=== PATIENT | female | born 1950 | race Caucasian/White ===

== ENCOUNTER → 2018-07-13 09:02 | Outpatient (BNVA) | payer MEDICARE, BC, SELFPAY | PROVIDERS: PCP Family Medicine; Visit Provider Nurse Practitioner Adult Health | DX: G62.9 Polyneuropathy, unspecified (principal); R73.03 Prediabetes | CPT/HCPCS: 99213 ==

== ENCOUNTER → 2018-08-15 13:27 | Outpatient (BNVA) | payer MEDICARE, BC, SELFPAY | PROVIDERS: PCP Family Medicine; Visit Provider Nurse Practitioner Adult Health | DX: G62.9 Polyneuropathy, unspecified (principal); M79.604 Pain in right leg | CPT/HCPCS: 99213 ==

== ENCOUNTER 2018-08-22 01:19 | Outpatient (CLI) | payer MEDICARE, BC, SELFPAY ==
--- NOTE | 2018-08-22 09:25 | DI.MRI_ITS ---
SYMPTOM/DIAGNOSIS: ? NEUROGENIC CLAUDICATION, PAIN RT LOWER EXTREMITY, LOW BACK PAIN, M54.5, M79.604 LUMBOSACRAL SPINE MRI: MRI examination of the lumbosacral spine was performed according to the usual protocol. Note is made of peridiscal vertebral signal changes at L 5-S 1 consistent with disc degeneration and associated with loss of disc height and disc signal. High signal focus is also seen in T 12 vertebral body consistent with a small vertebral hemangioma. No other significant bony signal abnormality is seen. Facet hypertrophic degenerative changes noted at L 4-5 and L 5-S 1. Conus medullaris appears intact. No significant findings at L 2-3 level or above. At L 3-4, there is a moderate disc bulge with borderline central canal spinal stenosis. Borderline central canal spinal stenosis also present at L 4-5. No focal disc herniation identified in the lumbar region. There is mild bilateral neural foraminal narrowing at L 4-5 and L 5- S 1. CONCLUSION: Disc bulges at L 3-4 and L 4-5 with borderline central canal spinal stenosis at these levels. Mild bilateral neural foraminal narrowing noted at L 4-5 and L 5- S 1.
== END 2018-08-22 01:39 ==
PROVIDERS: PCP Family Medicine; Visit Provider Nurse Practitioner Adult Health
DX: M79.604 Pain in right leg (principal); M54.5 Low back pain; M51.26 Other intervertebral disc displacement, lumbar region; M48.07 Spinal stenosis, lumbosacral region
CPT/HCPCS: 72148

== ENCOUNTER → 2018-09-21 13:36 | Outpatient (BNVA) | payer MEDICARE, BC, SELFPAY | PROVIDERS: PCP Family Medicine; Visit Provider Psychiatry & Neurology Neurology | DX: M54.17 Radiculopathy, lumbosacral region (principal); G60.9 Hereditary and idiopathic neuropathy, unspecified; I10 Essential (primary) hypertension | CPT/HCPCS: 95885; 95908; 99214 ==

== ENCOUNTER 2018-10-04 09:43 | Outpatient (CLI) | payer MEDICARE, BC, SELFPAY ==
--- NOTE | 2018-10-04 06:00 | DI.RAD_ITS ---
SYMPTOM/DIAGNOSIS: LUMBAR RADICULOPATHY C-ARM FLUOROSCOPY: Fluoroscopy Time: 47.5 seconds 15.25mGy C-arm fluoroscopy was provided for guidance with lumbar spine [facility] injections. Hard copy images show needle placement on the right side at the L5-S1 level. Please see procedure note for details.
[2018-10-04 09:52] VITALS: BP 123/70; PULSE 74; RESP 18; TEMP 36.5; O2SAT 97
[2018-10-04 10:39] VITALS: BP 147/65; PULSE 70; RESP 17; O2SAT 94
--- NOTE | 2018-10-04 10:40 | PDOC.PAIN ---
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 COMMENTS: The patient has foraminal stenosis at L5-S1, right slightly worse than left. She has a right radicular symptoms. She saw Dr. Lee the nerve studies and thought it was S1 radiculitis. Symptoms an MRI seems more like L5. Patient was interviewed and the medical record reviewed. There were no medical, pharmacologic, radiographic or other structural contraindications to attempting fluoroscopically guided transforaminal nerve root block and epidural steroid injection. Risks and expected side effects as well as potential benefit of the procedure were reviewed and voiced concerns addressed. The printed consent form was signed and witnessed. Standard time-out procedure was performed. Patient was placed in the prone position on the fluoroscopy table and automated blood pressure cuff and pulse oximeter applied. Fluoroscopy was utilized to identify the {right} neural foramen between L5 and S1 . A skin jody was made for the needle insertion site. A Chlorhexadine prep was carried out, and sterile drapes were applied. Local anesthesia was achieved in the skin and subcutaneous tissues. A 22 gauge curved tip spinal needle was then inserted, advanced with fluoroscopic guidance into the neural foramen, confirmed on the lateral view. After negative aspiration, 2 ml of Omnipaque 240 was injected confirming position in A/P and lateral views. This showed a good spread of dye transforaminally into the epidural space. There was initially vascular uptake with contrast injection under continuous fluoroscopy and digital substraction. Position and there was no uptake. I switched from medical to 10 mg of dexamethasone was injected, followed by 0.5 ml of 0.5% bupivacaine flush for the nerve root block, as well. There was no unusual discomfort expressed.The needle was withdrawn. The patient tolerated the procedure well. A Band-Aid was applied. Vital signs were stable throughout the procedure and were as recorded in nursing records. If given, dosages of intravenous drugs for anxiolysis and analgesia were documented in nursing records. Follow up plans and appointments were discussed. Post procedure instruction was given as documented in nursing records and patient was discharged in the care of an identified driver retraining instructor. COMMENTS: Follow-up as needed consider repeat or consider right S1 transforaminal or interlaminar with catheter to the right CC: Alejandra Thomson
[2018-10-04] MEDS: Omnipaque 240 MG/ML 50 ML BTL IJ (10:45)
--- NOTE | 2018-10-04 10:45 | PDOC.PAIN_ITS ---
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 COMMENTS: The patient has foraminal stenosis at L5-S1, right slightly worse than left. She has a right radicular symptoms. She saw Dr. Lee the nerve studies and thought it was S1 radiculitis. Symptoms an MRI seems more like L5. Patient was interviewed and the medical record reviewed. There were no medical , pharmacologic, radiographic or other structural contraindications to attempting fluoroscopically guided transforaminal nerve root block and epidural steroid injection. Risks and expected side effects as well as potential benefit of the procedure were reviewed and voiced concerns addressed. The printed consent form was signed and witnessed. Standard time-out procedure was performed. Patient was placed in the prone position on the fluoroscopy table and automated blood pressure cuff and pulse oximeter applied. Fluoroscopy was utilized to identify the {right} neural foramen between L5 and S1 . A skin jody was made for the needle insertion site. A Chlorhexadine prep was carried out, and sterile drapes were applied. Local anesthesia was achieved in the skin and subcutaneous tissues. A 22 gauge curved tip spinal needle was then inserted, advanced with fluoroscopic guidance into the neural foramen, confirmed on the lateral view. After negative aspiration, 2 ml of Omnipaque 240 was injected confirming position in A/P and lateral views. This showed a good spread of dye transforaminally into the epidural space. There was initially vascular uptake with contrast injection under continuous fluoroscopy and digital substraction. Position and there was no uptake. I switched from medical to 10 mg of dexamethasone was injected, followed by 0.5 ml of 0.5% bupivacaine flush for the nerve root block, as well. There was no unusual discomfort expressed.The needle was withdrawn. The patient tolerated the procedure well. A Band-Aid was applied. Vital signs were stable throughout the procedure and were as recorded in nursing records. If given, dosages of intravenous drugs for anxiolysis and analgesia were documented in nursing records. Follow up plans and appointments were discussed. Post procedure instruction was given as documented in nursing records and patient was discharged in the care of an identified road train driver. COMMENTS: Follow-up as needed consider repeat or consider right S1 transforaminal or interlaminar with catheter to the right CC: Alejandra Thomson
[2018-10-04] MEDS: Dexamethasone 10 MG/ML VIAL IM (10:46)
[2018-10-04] MEDS: Bupivacaine 0.5% Pres-Free 10 ML VIAL IJ (10:46)
== END 2018-10-04 10:03 ==
PROVIDERS: PCP Family Medicine; Visit Provider Anesthesiology Pain Medicine
DX: M54.17 Radiculopathy, lumbosacral region (principal); G89.29 Other chronic pain
CPT/HCPCS: 64483; 72100; J1100; Q9967

== ENCOUNTER 2018-11-11 11:05 | Outpatient (CLI) | payer MEDICARE, BC, SELFPAY ==
--- NOTE | 2018-11-11 14:18 | DI.RAD_ITS ---
SYMPTOMS/DIAGNOSIS: PAIN IN RIGHT HIP, M25.551; PAIN, 3RD DIGIT AND THUMB, BILATERAL HANDS, R52 RIGHT HIP AND PELVIS: Two views. The right hip joint is well maintained. The bones are intact and normally mineralized. The sacroiliac joints and symphysis pubis appear unremarkable. The soft tissues are unremarkable. IMPRESSION: Negative right hip. LEFT HAND: Three views. There is joint space narrowing and periarticular spurring at the interphalangeal joints of the hand, particularly the interphalangeal joint of the thumb, the PIP joint of the index finger and the DIP joint of the middle finger. There are also prominent hypertrophic changes seen at the 1st carpometacarpal joint. No acute fracture or dislocation, suspicious lytic or sclerotic lesions or radiopaque foreign bodies are seen in the soft tissues. IMPRESSION: Osteoarthritis of the left hand. RIGHT HAND: Three views. At the 1st carpometacarpal joint, there are moderate hypertrophic changes present. The metacarpophalangeal joints are well maintained. The interphalangeal joints of the hand show joint space narrowing and periarticular osteophytes. the findings are most marked at the interphalangeal joint of the thumb, the DIP joint of the index finger and the DIP joint of the right little finger. No acute fracture, dislocation, lytic or sclerotic lesion is seen. No radiopaque foreign bodies are seen in the soft tissues. IMPRESSION: Osteoarthritis of the right hand.
== END 2018-11-11 11:25 ==
PROVIDERS: PCP Family Medicine; Visit Provider Family Medicine
DX: M25.551 Pain in right hip (principal); M79.644 Pain in right finger(s); M79.645 Pain in left finger(s); M79.641 Pain in right hand; M79.642 Pain in left hand; M18.11 Unilateral primary osteoarthritis of first carpometacarpal joint, right hand; M18.12 Unilateral primary osteoarthritis of first carpometacarpal joint, left hand; M19.041 Primary osteoarthritis, right hand; M19.042 Primary osteoarthritis, left hand
CPT/HCPCS: 73130; 73502

== ENCOUNTER → 2018-12-07 13:20 | Outpatient (BNVA) | payer MEDICARE, BC, SELFPAY | PROVIDERS: PCP Family Medicine; Referring Provider Family Medicine; Visit Provider Student in an Organized Health Care Education/Training Program | DX: M70.61 Trochanteric bursitis, right hip (principal); M18.12 Unilateral primary osteoarthritis of first carpometacarpal joint, left hand; M18.11 Unilateral primary osteoarthritis of first carpometacarpal joint, right hand | CPT/HCPCS: 20610; 99203; 99214; J1040 ==

== ENCOUNTER → 2018-12-19 09:39 | Outpatient (BNVA) | payer MEDICARE, BC, SELFPAY | PROVIDERS: PCP Family Medicine; Visit Provider Nurse Practitioner Adult Health | DX: G62.9 Polyneuropathy, unspecified (principal); M54.16 Radiculopathy, lumbar region; R73.03 Prediabetes | CPT/HCPCS: 99213 ==

== ENCOUNTER → 2019-01-02 14:50 | Outpatient (BNVA) | payer MEDICARE, BC, SELFPAY | PROVIDERS: PCP Family Medicine; Referring Provider Family Medicine; Visit Provider Student in an Organized Health Care Education/Training Program | DX: M70.61 Trochanteric bursitis, right hip (principal) | CPT/HCPCS: 99212; 99213 ==

== ENCOUNTER 2019-01-06 00:36 | Outpatient (CLI) | payer MEDICARE, BC, SELFPAY ==
--- NOTE | 2019-01-06 07:52 | DI.MRI_ITS ---
SYMPTOM/DIAGNOSIS: CHRONIC RT HIP PAIN, TROCHANTERIC BURSITIS, ? ABDUCTOR TENDON TEAR, M25.559 PELVIS AND RIGHT HIP MRI: T 1 and fat suppressed T 2 axial, T 1 and STIR coronal sequences were performed with the field of view including both hips. Fat suppressed proton density coronal and fat suppressed T 2 sagittal sequences were performed through the right hip. There is a small amount of fluid around the greater trochanter. There is some thickening and edema within the gluteus medius tendon. The gluteus minimus tendon is unremarkable. No joint effusion is seen. The marrow signal appears normal. No signal abnormality is seen within the abductor muscles. The bladder is unremarkable. The patient appears to be status post hysterectomy. IMPRESSION: Findings consistent with mild trochanteric bursitis and gluteus medius tendinitis.
== END 2019-01-06 00:56 ==
PROVIDERS: PCP Family Medicine; Visit Provider Physician Assistant
DX: M25.551 Pain in right hip (principal); M70.61 Trochanteric bursitis, right hip; M76.01 Gluteal tendinitis, right hip
CPT/HCPCS: 73721

== ENCOUNTER 2019-01-11 09:41 | Outpatient (CLI) | payer MEDICARE, BC, SELFPAY ==
--- NOTE | 2019-01-11 06:00 | DI.RAD_ITS ---
SYMPTOMS/DIAGNOSIS: LUMBAR RADICULOPATHY, TRANSFORAMINAL EPIDURAL STEROID INJECTION PAIN CLINIC: Fluoroscopy Time: 23.7 sec, 6.4 mGy Fluoroscopy was utilized by Dr. Womack during the performance of a transforaminal epidural steroid injection. Please refer to the procedure report for complete details.
[2019-01-11 10:02] VITALS: BP 125/74; PULSE 74; RESP 16; TEMP 36.9; O2SAT 96
[2019-01-11 10:34] VITALS: BP 143/64; PULSE 80; RESP 18; O2SAT 97
[2019-01-11] MEDS: Dexamethasone Sod. Phos./Pres-Free 10 MG/ML VIAL IJ (10:35)
[2019-01-11] MEDS: Omnipaque 240 MG/ML 50 ML BTL IJ (10:35)
--- NOTE | 2019-02-28 09:26 | PDOC.PAIN_ITS ---
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 COMMENTS: She was previously evaluated. Patient was interviewed and the medical record reviewed. There were no medical, pharmacologic, radiographic or other structural contraindications to attempting fluoroscopically guided transforaminal nerve root block and epidural steroid injection. Risks and expected side effects as well as potential benefit of the procedure were reviewed and voiced concerns addressed. The printed consent form was signed and witnessed. Standard time-out procedure was performed. Patient was placed in the prone position on the fluoroscopy table and automated blood pressure cuff and pulse oximeter applied. Fluoroscopy was utilized to identify the right L5 neural foramen between L5 and S1. A skin jody was made for the needle insertion site. A Chlorhexadine prep was carried out, and sterile drapes were applied. Local anesthesia was achieved in the skin and subcutaneous tissues. A 22 gauge curved tip spinal needle was then inserted, advanced with fluoroscopic guidance into the neural foramen, confirmed on the lateral view. After negative aspiration, 2 ml of Omnipaque 240 was injected confirming position in A/P and lateral views. This showed a good spread of dye transforaminally into the epidural space. There was no vascular update with contrast injection under continuous fluoroscopy and digital substraction. 15 mg of Dexamethasone was injected, followed by 0.5 ml of 1% Xylocaine flush for the nerve root block, as well. There was no unusual discomfort expressed.The needle was withdrawn. The patient tolerated the procedure well. A Band-Aid was applied. Vital signs were stable throughout the procedure and were as recorded in nursing records. If given, dosages of intravenous drugs for anxiolysis and analgesia were documented in nursing records. Follow up plans and appointments were discussed. Post procedure instruction was given as documented in nursing records and patient was discharged in the care of an identified road train driver. COMMENTS: This procedure can be completed up to 3 times per 12 months. CC: Alejandra Thomson MD
--- NOTE | 2019-04-04 12:11 | PDOC.PAIN ---
Pain Clinic Procedure Note LUMBAR / SACRAL TRANSFORAMINAL INJECTION ORION CRAVER has been referred to the [facility] for a transforaminal nerve root block and steroid injection. COMMENTS: Previous successful LESI Patient was interviewed and the medical record reviewed. There were no medical, pharmacologic, radiographic or other structural contraindications to attempting fluoroscopically guided transforaminal nerve root block and epidural steroid injection. Risks and expected side effects as well as potential benefit of the procedure were reviewed and voiced concerns addressed. The printed consent form was signed and witnessed. Standard time-out procedure was performed. Patient was placed in the prone position on the fluoroscopy table and automated blood pressure cuff and pulse oximeter applied. Fluoroscopy was utilized to identify the right L5 neural foramen between L5 and S1. A skin jody was made for the needle insertion site. A Chlorhexadine prep was carried out, and sterile drapes were applied. Local anesthesia was achieved in the skin and subcutaneous tissues. A 22 gauge curved tip spinal needle was then inserted, advanced with fluoroscopic guidance into the neural foramen, confirmed on the lateral view. After negative aspiration, 2 ml of Omnipaque 240 was injected confirming position in A/P and lateral views. This showed a good spread of dye transforaminally into the epidural space. There was no vascular update with contrast injection under continuous fluoroscopy and digital substraction. 15 mg of Dexamethasone was injected, followed by 0.5 ml of 1% Xylocaine flush for the nerve root block, as well. There was no unusual discomfort expressed.The needle was withdrawn. The patient tolerated the procedure well. A Band-Aid was applied. Vital signs were stable throughout the procedure and were as recorded in nursing records. If given, dosages of intravenous drugs for anxiolysis and analgesia were documented in nursing records. Follow up plans and appointments were discussed. Post procedure instruction was given as documented in nursing records and patient was discharged in the care of an identified local company tanker driver. COMMENTS: If this procedure is found helpful, it can be completed up to 3 times per 12 months. CC: Alejandra Thomson MD
--- NOTE | 2019-04-04 12:14 | PDOC.PAIN_ITS ---
Pain Clinic Procedure Note LUMBAR / SACRAL TRANSFORAMINAL INJECTION ORION CARVER has been referred to the [facility] for a transforaminal nerve root block and steroid injection. COMMENTS: Previous successful LESI Patient was interviewed and the medical record reviewed. There were no medical, pharmacologic, radiographic or other structural contraindications to attempting fluoroscopically guided transforaminal nerve root block and epidural steroid injection. Risks and expected side effects as well as potential benefit of the procedure were reviewed and voiced concerns addressed. The printed consent form was signed and witnessed. Standard time-out procedure was performed. Patient was placed in the prone position on the fluoroscopy table and automated blood pressure cuff and pulse oximeter applied. Fluoroscopy was utilized to identify the right L5 neural foramen between L5 and S1. A skin jody was made for the needle insertion site. A Chlorhexadine prep was carried out, and sterile drapes were applied. Local anesthesia was achieved in the skin and subcutaneous tissues. A 22 gauge curved tip spinal needle was then inserted, advanced with fluoroscopic guidance into the neural foramen, confirmed on the lateral view. After negative aspiration, 2 ml of Omnipaque 240 was injected confirming position in A/P and lateral views. This showed a good spread of dye transforaminally into the epidural space. There was no vascular update with contrast injection under continuous fluoroscopy and digital substraction. 15 mg of Dexamethasone was injected, followed by 0.5 ml of 1% Xylocaine flush for the nerve root block, as well. There was no unusual discomfort expressed.The needle was withdrawn. The patient tolerated the procedure well. A Band-Aid was applied. Vital signs were stable throughout the procedure and were as recorded in nursing records. If given, dosages of intravenous drugs for anxiolysis and analgesia were documented in nursing records. Follow up plans and appointments were discussed. Post procedure instruction was given as documented in nursing records and patient was discharged in the care of an identified light truck driver. COMMENTS: If this procedure is found helpful, it can be completed up to 3 times per 12 months. CC: Alejandra Thomson MD
== END 2019-01-11 10:01 ==
PROVIDERS: PCP Family Medicine; Visit Provider Preventive Medicine Occupational Medicine
DX: M54.17 Radiculopathy, lumbosacral region (principal)
CPT/HCPCS: 64483; 72100; Q9967

== ENCOUNTER → 2019-01-18 09:56 | Outpatient (BNVA) | payer MEDICARE, BC, SELFPAY | PROVIDERS: PCP Family Medicine; Referring Provider Family Medicine; Visit Provider Student in an Organized Health Care Education/Training Program | DX: M70.61 Trochanteric bursitis, right hip (principal) | CPT/HCPCS: 99213 ==

== ENCOUNTER 2019-02-16 13:49 | Outpatient (CLI) | payer MEDICARE, BC, SELFPAY ==
--- NOTE | 2019-02-16 13:06 | W.PREOPHP ---
Documented by User: Taniya Lizarraga 02/16/19 18:28 Assessment and Plan (1) Trochanteric bursitis of right hip: Current visit: Yes Status: Acute Plan: Educated patient on surgery covering surgical technique, recovery process, benefits and risks including but not limited to risk of infection, blood clot, damage to soft tissue/blood vessels/nerves in detail. As per Dr. Clements's previous notes educated patient if tendon tearing is present at time of surgery and she undergoes tendon repair then her recovery course will have increased restrictions. After discussion patient gives verbal understanding of risks and elects to proceed with scheduling surgery. Patient and her had opportunity to have questions answered to their satisfaction. Patient has previously had adverse reaction to generic form of hydrocodone which she describes as experiencing headaches and feeling off. Due to patient's previous adverse reaction she wishes to avoid narcotic medications. Patient also reports increased acid reflux with ibuprofen. Educated patient on alternative postoperative pain medications including likely taking regularly scheduled Tylenol and alternative NSAID. She denies previously being on Celebrix. She will contact office if issues arise. Patient will continue to be scheduled for right trochanteric bursa debridement and IT band lengthening with possible tendon repair with Dr. Clements on 02/21/19. History of Present Illness Ms. Puri is a 68-year-old female who presents to clinic with her , Panda, for preoperative appointment for scheduled right trochanteric bursa debridement and IT band lengthening with Dr. Clements on 02/21/19. Patient has continued to have right trochanteric bursitis for greater than 1 year. Previously she attended physical therapy twice weekly and reported doing daily at home recommended exercises. Although patient reports that she had significant improvement in her muscle tightness, she did unfortunately continue to have right lateral based hip pain. Patient describes pain as a tenderness extending from areas identified as the trochanteric bursa down the length of the IT band. Pain is aggravated with lying on her side and following her exercises. Patient states when pain is severe especially when laying on her side at night she does experience slight numbness and tingling around the area of the greater trochanter that will gradually improved. Patient has treated symptoms by taking Tylenol as needed and applying ice which provides slight pain relief. Unfortunately, patient reports increase in acid reflux with ibuprofen. Patient also received an injection on 12/07/18 which provided approximately 1 week of pain relief. As per Dr. Clements's note on 01/18/19 MRI showed tendinitis of the abductor musculature but no yung tearing. Impression by Dr. Tinsley on 01/06/19 stated findings consistent with mild trochanteric bursitis and gluteus medius tendinitis. Due to patient's continued trochanteric bursitis despite adequate trial of conservative therapies including physical therapy and corticosteroid injection she was offered surgical intervention and elected to proceed. Pertinent Surgical Information Denies past medical history of: stroke, cardiac issues, angina, asthma, COPD, sleep apnea, renal issues, gastrointestinal ulcers, hyperlipidemia, bleeding disorders, seizures, migraines, anxiety, depression, autoimmune disorders, thyroid issues Denies prior complications from surgery or anesthesia. Review of Systems Review of Systems Denies skin sores; denies pustules; denies areas of skin breakdown Constitutional Denies fever(s), Denies frequent falls and Denies headache(s) Eyes Denies change in vision ENT Denies dental pain, Denies dizziness, Denies ear discharge, Denies headache(s), Denies epistaxis, Denies mouth pain, Denies nasal congestion, Denies nasal discharge, Denies nose pain and Denies sore throat Comments: Pertinent for bridge and crown on teeth on the right side of her mouth Cardiovascular Denies chest pain, Denies rapid heart rate, Denies edema, Denies irregular heart rhythm, Denies dyspnea, Denies dyspnea on exertion, Denies orthopnea, Denies paroxysmal nocturnal dyspnea and Denies slow heart rate Respiratory Denies cough, Denies excessive phlegm production, Denies dyspnea, Denies dyspnea on exertion and Denies wheezing Gastrointestinal Denies abdominal pain, Denies melena, Denies hematochezia, Denies constipation, Denies diarrhea, Denies nausea and Denies vomiting Genitourinary Denies hematuria and Denies dysuria Musculoskeletal Reports as per HPI, Reports numbness (Occasionally over right greater trochanter when pain is severe) and Reports tingling (Occasionally over right greater trochanter when pain is severe) Neurologic Denies dizziness, Denies frequent falls, Denies headache(s), Reports numbness (Occasionally over right greater trochanter when pain is severe) and Reports tingling (Occasionally over right greater trochanter when pain is severe) Psychiatric Denies anxiety and Denies depression Allergic/Immunologic Denies wheezing [facility] Medical History Primary osteoarthritis of right knee (Chronic) Trochanteric bursitis of right hip (Acute) Right lumbosacral radiculopathy (Chronic) Non-alcoholic fatty liver disease (Chronic) Essential hypertension (Chronic) Family history of GI malignancy Esophageal reflux (Chronic) Varicose veins of lower extremity (Chronic) Idiopathic peripheral neuropathy (Chronic) Surgical History Colonoscopy - MAC (~10/2004) EGD - MAC (~10/2004) Hemorrhoidectomy (~2000) Abdominal hysterectomy (~1983) STRABISMUS VARICOSE VEIN SURGERY Family History Mother Disorder of liver Diabetes Alcohol abuse Heart disease Smoker Father Disorder of liver Alcohol abuse Heart disease Smoker Sister Diabetes Essential hypertension Neoplasm Sister Diabetes Essential hypertension Heart disease Sister Diabetes Brother Diabetes Essential hypertension Hyperlipidemia Neoplasm Brother Diabetes Essential hypertension Neoplasm Daughter Graves disease Social History Smoking/Tobacco Use Status: Former Tobacco Use Tobacco: How many years used: 20 Alcohol Intake: current Alcohol Intake frequency: holidays/special occasions only Alcohol type: wine Drug use: Never Substance use type: does not use Household members: spouse Housing: house Number of Children: 2 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 Other: - Panda What type of physical activity do you participate in: walking Duration: 45-60 minutes/day Frequency: 5-6 times per week Do you feel safe at home: Yes Do you feel safe in your relationship?: Yes Meds Home Medications Medication Instructions Recorded Confirmed Type multivitamin [Multi-Vitamin Daily] 1 ea PO DAILY 03/02/16 02/16/19 History meclizine 25 mg PO TID PRN #30 tab-cap 11/10/17 02/16/19 History esomeprazole magnesium [Nexium] 40 mg PO BID #60 packet 04/20/18 02/16/19 Rx Varicella-Zoster Ge/As01b/Pf 50 mcg IM ONCE #1 kit 05/09/18 01/18/19 Clinic [Shingrix Vial Kit] nabumetone 500 mg PO BID PRN #60 tab-cap 05/09/18 02/16/19 History lisinopril 20 mg tablet 20 mg PO DAILY #90 tab-cap 08/08/18 02/16/19 Rx cholecalciferol (vitamin D3) 2,000 2,000 unit PO DAILY 08/15/18 02/16/19 History unit tablet gabapentin 600 mg tablet 600 mg PO TID #90 tab-cap 09/27/18 02/16/19 Rx lidocaine 5 % topical ointment 1 applic TOPICAL Q4H PRN #30 gm 12/19/18 02/16/19 Rx hydrochlorothiazide 25 mg tablet 25 mg PO DAILY #90 tab-cap 02/07/19 02/16/19 Rx Allergies Allergy/AdvReac Type Severity Reaction Status Date / Time Penicillins Allergy Unknown HIVES Unverified 02/16/19 18:13 hydrocodone AdvReac Unknown H/A Unverified 02/16/19 18:13 Exam Const General: cooperative and no acute distress HENMT Head: normal to inspection, normocephalic and atraumatic Ears: external ears normal General nose exam: external nose normal and no nasal discharge Face and sinus: face symmetric Mouth: oral mucosae normal, lip normal, tongue normal and moist mucous membranes Teeth and gingiva: dentition normal Throat: posterior oropharynx normal Eyes General: appearance normal, both eyes and all related structures Pupils: PERRL EOM: EOM intact bilaterally Neck Neck: trachea midline Carotids: normal carotid upstroke Lymphatic: no lymphadenopathy noted Resp Effort & Inspection: normal respiratory effort and able to speak in complete sentences Auscultation: clear to auscultation bilaterally, no rales, no rhonchi and no wheezes Cardio Heart Sounds: S1 normal, S2 normal and no murmurs Pulses: radial pulses present bilaterally GI Palpation: soft, no hepatosplenomegaly and nontender Auscultation: normal bowel sounds Skin General skin exam: no rashes or lesions noted Extrem Other: Right hip examination: Severe tenderness to palpation over the greater trochanter. Tenderness to palpation along the length of IT band. Documented by User: Daniel Clements MD 02/18/19 09:56 History of Present Illness Ms. Puri is a 68-year-old female who presents to clinic with her , Panda, for preoperative appointment for scheduled right trochanteric bursa debridement and IT band lengthening with Dr. Clements on 02/21/19. Patient has continued to have right trochanteric bursitis for greater than 1 year. Previously she attended physical therapy twice weekly and reported doing daily at home recommended exercises. Although patient reports that she had significant improvement in her muscle tightness, she did unfortunately continue to have right lateral based hip pain. Patient describes pain as a tenderness extending from areas identified as the trochanteric bursa down the length of the IT band. Pain is aggravated with lying on her side and following her exercises. Patient states when pain is severe especially when laying on her side at night she does experience slight numbness and tingling around the area of the greater trochanter that will gradually improved. Patient has treated symptoms by taking Tylenol as needed and applying ice which provides slight pain relief. Unfortunately, patient reports increase in acid reflux with ibuprofen. Patient also received an injection on 12/07/18 which provided approximately 1 week of pain relief. As per Dr. Clements's note on 01/18/19 MRI showed tendinitis of the abductor musculature but no yugn tearing. Impression by Dr. Tinsley on 01/06/19 stated findings consistent with mild trochanteric bursitis and gluteus medius tendinitis. Due to patient's continued trochanteric bursitis despite adequate trial of conservative therapies including physical therapy and corticosteroid injection she was offered surgical intervention and elected to proceed. [facility] Medical History Primary osteoarthritis of right knee (Chronic) Trochanteric bursitis of right hip (Acute) Right lumbosacral radiculopathy (Chronic) Non-alcoholic fatty liver disease (Chronic) Essential hypertension (Chronic) Family history of GI malignancy Esophageal reflux (Chronic) Varicose veins of lower extremity (Chronic) Idiopathic peripheral neuropathy (Chronic) Surgical History Colonoscopy - MAC (~10/2004) EGD - MAC (~10/2004) Hemorrhoidectomy (~2000) Abdominal hysterectomy (~1983) STRABISMUS VARICOSE VEIN SURGERY Family History Mother Disorder of liver Diabetes Alcohol abuse Heart disease Smoker Father Disorder of liver Alcohol abuse Heart disease Smoker Sister Diabetes Essential hypertension Neoplasm Sister Diabetes Essential hypertension Heart disease Sister Diabetes Brother Diabetes Essential hypertension Hyperlipidemia Neoplasm Brother Diabetes Essential hypertension Neoplasm Daughter Graves disease Social History Smoking/Tobacco Use Status: Former Tobacco Use Tobacco: How many years used: 20 Alcohol Intake: current Alcohol Intake frequency: holidays/special occasions only Alcohol type: wine Drug use: Never Substance use type: does not use Household members: spouse Housing: house Number of Children: 2 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 Other: - Panda What type of physical activity do you participate in: walking Duration: 45-60 minutes/day Frequency: 5-6 times per week Do you feel safe at home: Yes Do you feel safe in your relationship?: Yes Meds Home Medications Medication Instructions Recorded Confirmed Type multivitamin [Multi-Vitamin Daily] 1 ea PO DAILY 03/02/16 02/16/19 History meclizine 25 mg PO TID PRN #30 tab-cap 11/10/17 02/16/19 History esomeprazole magnesium [Nexium] 40 mg PO BID #60 packet 04/20/18 02/16/19 Rx Varicella-Zoster Ge/As01b/Pf 50 mcg IM ONCE #1 kit 05/09/18 01/18/19 Clinic [Shingrix Vial Kit] nabumetone 500 mg PO BID PRN #60 tab-cap 05/09/18 02/16/19 History lisinopril 20 mg tablet 20 mg PO DAILY #90 tab-cap 08/08/18 02/16/19 Rx cholecalciferol (vitamin D3) 2,000 2,000 unit PO DAILY 08/15/18 02/16/19 History unit tablet gabapentin 600 mg tablet 600 mg PO TID #90 tab-cap 09/27/18 02/16/19 Rx lidocaine 5 % topical ointment 1 applic TOPICAL Q4H PRN #30 gm 12/19/18 02/16/19 Rx hydrochlorothiazide 25 mg tablet 25 mg PO DAILY #90 tab-cap 02/07/19 02/16/19 Rx Allergies Allergy/AdvReac Type Severity Reaction Status Date / Time Penicillins Allergy Unknown HIVES Unverified 02/16/19 18:13 hydrocodone AdvReac Unknown H/A Unverified 02/16/19 18:13
== END 2019-02-16 14:09 ==
PROVIDERS: PCP Family Medicine; Visit Provider Student in an Organized Health Care Education/Training Program
DX: M70.61 Trochanteric bursitis, right hip (principal); M25.551 Pain in right hip; Z01.818 Encounter for other preprocedural examination; I10 Essential (primary) hypertension
CPT/HCPCS: NC

== ENCOUNTER 2019-02-21 09:35 | Day surgery (SDC) | payer MEDICARE, BC, SELFPAY ==
[2019-02-16 14:06] VITALS: BP 142/83; PULSE 79; RESP 18; TEMP 37.1; O2SAT 95
[2019-02-21] VITALS (7 sets, daily range): BP systolic 92–143; BP diastolic 49–74; PULSE 69–80; RESP 14–21; TEMP 35.9–36.5; O2SAT 94–96
[2019-02-21] MEDS: Lactated Ringers 1,000 ML 80 ML IV (10:02)
[2019-02-21] MEDS: ceFAZolin 2 GM/50 ML BAG IVPB (11:28)
[2019-02-21] MEDS: Bupivacaine 0.25% Pres-Free 30 ML VIAL (11:44)
--- NOTE | 2019-02-21 12:34 | W.PM.DSUDISC ---
Discharge Plan Disposition Patient Disposition: HOME Condition: Good Discharge Details Reason For Visit: (L) RECALCITRANT TROCH BURSITIS Attending Provider: Daniel Clements Primary Care Provider: Alejandra Thomson Home Meds and New Rx's Prescriptions: New acetaminophen 500 mg tablet 1,000 mg PO Q8H PRN (Reason: pain) Qty: 90 RF: 3 ibuprofen 600 mg tablet 600 mg PO TID PRNQty: 90 RF: 3 tramadol 50 mg tablet 50 mg PO Q4H PRN (Reason: pain) Qty: 12 RF: 0 Continued cholecalciferol (vitamin D3) [Vitamin D3] 2,000 unit tablet 2,000 unit PO DAILY RF: 0 lidocaine 5 % ointment 1 applic Topical Q4H PRN Qty: 30 RF: 3 multivitamin [Daily Multi-Vitamin] 1 EACH tablet 1 ea PO DAILY RF: 0 meclizine 25 MG tablet 25 mg PO TID PRNQty: 30 RF: 3 Nexium Packet [address] for susp in packet 40 mg PO BID Qty: 60 RF: 0 Varicella-Zoster Ge/As01b/Pf [Shingrix Vial Kit] 50 MCG INJ 50 mcg IM ONCE Qty: 1 RF: 1 lisinopril 20 mg tablet 20 mg PO DAILY Qty: 90 RF: 4 gabapentin 600 mg tablet 600 mg PO TID Qty: 90 RF: 4 hydrochlorothiazide 25 mg tablet 25 mg PO DAILY Qty: 90 RF: 3 Discontinued nabumetone 500 MG tablet 500 mg PO BID PRNQty: 60 RF: 3 Discharge Instructions Additional Instructions: Dr. Clements?s Hip Discharge Instructions Activity: The most thing is to take it easy and use the walker and resume easy walking and activities of daily living. You should try to take short walks a few times a day. You have no restrictions on movement or positioning, but do not try to force what you do. You will find some stiffness and weakness with hip movement. Do not try to strengthen this too early, continue to practice walking and stairs and this will come. - Outpatient physical therapy can be helpful to help return you to a normal gait and improve your flexibility and strength. This can start around 2 weeks. For some patients, it?s not necessary. Usually this is determined at the time of discharge or at the first post-operative visit. Dressing: Keep the surgical dressing in place for at least one week. After the first week it may be removed and replace with light gauze and tape or nothing. It may get wet after 3 days but avoid soaking the dressing. If it gets wet, just lightly pat dry. Medications: - You should take Tylenol and Ibuprofen as your primary pain control medications - You have been prescribed a stronger pain medication, Tramadol, for breakthrough pain, take as needed as prescribed. - If you have constipation you should take Colace or Miralax (both [id number]). It takes most people 3-4 days to have a bowel movement. Follow-up: 2 weeks Referrals: Daniel Clements MD [ [facility] STAFF PHYSICIAN] - Activity:: Activity as Tolerated Remove Dressings/Wound Care:: 72 hours Shower/Bathe:: 72 hours Diet:: As Tolerated Discharge Orders Discharge Orders: Discharge Order (Routine); Ordered 02/21/19 Ordered By: Daniel Clements DS: Diagnosis Discharge Diagnosis (1) Trochanteric bursitis of right hip: Status: Acute
[2019-02-21] MEDS: fentaNYL 100 MCG/2 ML VIAL IVP (12:55)
[2019-02-21] MEDS: traMADol 50 MG TAB PO (13:37)
--- NOTE | 2019-02-21 15:24 | PT.INNT ---
Date of service: 02/21/19 Time of Service: 14:36 PT Notes Date: 02/21/2019 Referring MD: Daniel Clements. PT order: Postop walker instruction needed as patient has never used a walker Patient Profile/Admitting diagnosis: Order received today from Dr. Daniel Clements for this 68-year-old female status post right trochanteric bursa debridement and IT band lengthening due to recalcitrant right trochanteric bursitis and gluteus medius tendinitis. Patient education/training: Front wheeled walker was adjusted to patient's height. Patient was given instructions on walker placement, hand placement, and safe techniques using front-wheeled walker for level surface ambulation. Patient was able to demonstrate safety techniques walking to bathroom for about 20-25 feet using step to pattern with report of mild discomfort on the right hip. No report of back pain nor right knee pain received. Patient did not report dizziness. instructions were also given to patient and about limb advancement and negotiating 2 steps and rails on both sides to enter their house. Treatment code/time: NC. Patient was only seen from 14:36 through 14:52 only.
--- NOTE | 2019-02-22 08:28 | ROE_ITS ---
REPORT OF OPERATIVE PROCEDURE DATE OF SURGERY February 21, 2019 PREOPERATIVE DIAGNOSIS Recalcitrant trochanteric bursitis of right hip. POSTOPERATIVE DIAGNOSIS Recalcitrant trochanteric bursitis of right hip. SURGERY Open trochanteric debridement of the right hip with IT band lengthening. SURGEON Daniel Clements M.D. [employer]ARGET DEVELOPER Taniya Lizarraga PA-C ANESTHESIA General. COMPLICATIONS None. DISPOSITION The patient was awakened from anesthesia and taken the Post Anesthesia Care Unit in stable condition. INDICATION FOR PROCEDURE Donya is a 68-year old who I have seen on multiple occasions for recurrent right hip pain. She was diagnosed with trochanteric bursitis. She had failed typical conservative treatment options including physical therapy, activity modification, anti-inflammatories, ice, and injections. She continued to have pain limitations attributed to her trochanteric bursa. After exhausting all other treatment opt ions, I offered surgical intervention. I the risks of the surgery to include, bleeding, infection, pa in, stiffness, recurrence, weakness, damage to nerves and vessels, damage to muscles and tendons, blo od clot. Despite these risks, she elected to proceed. PROCEDURE DESCRIPTION Donya was greeted in the preoperative holding area. Her identity was confirmed, and the correct si de was identified and marked. The consent was reviewed with the patient and signed. She was then take n to the Operating Room, placed in the supine position. A general anesthetic was administered. She wa s then positioned into the left lateral decubitus with an axillary roll. All bony prominences of arms and legs were well padded to prevent any pressure. She was secured with a beanbag. Her head was in a neutral position. The right hip area was then prepped with ChloraPrep and draped in a standard fashi on. Prophylactic antibiotics in the form of cefazolin were given. A timeout was performed for safe el rgery. A 12-cm incision was then made overlying the greater trochanter in a slightly curved fashion. This w as taken down sharply through the skin. The deep tissues were dissected all the way down to the glute us fascia and the iliotibial band. Once this was identified, it was cleaned and dissected off to show it in its entirety. Deep retractors were used to help with this portion. The iliotibial band and th e gluteus fascia was then incised. It was split down the iliotibial band and up into the gluteus fasc ia. The deep retractor was then placed. The trochanteric bursa was easily identifiable. There was a thickened rind to the bursa with significant amount of bursal tissue. This was debrided sharply and r emoved. All bursal tissue was removed from this area to expose the lateral aspect of the femur as wel l as the insertion of the abductor musculature. The abductors were inspected. They showed no signs of tearing. A finger was placed underneath the abductor tendons on top of the hip capsule to palpate th e thickness of the abductor tendons to make sure there was no partial tearing. There was no gap from the insertion, and it appeared to be well attached to the greater trochanter. Any other remaining inf lammatory tissue was removed in this area. The wound was then thoroughly irrigated. The deep tissues were injected with a mixture of 0.5% bupivacaine and Exparel. The IT band was then closed with #1-Justin ryl. This was closed on the length of the IT band and the gluteus fascia. Once it was completely clos ed, the point of maximal tightness was identified overlying the prominence of the greater trochanter. This was incised sharply in a transverse direction. This created a rosa maria-type opening and the Misty otibial band by at least 2 centimeters. This area was once again irrigated. There was no s ignificant bleeding. The deep tissues were injected with a mixture of 0.5% bupivacaine and Exparel. T he deep tissues were closed with #0- Vicryl, followed by #2-0 Vicryl. The skin was closed with #4-0 Monocryl and skin glue. Mepilex dressing was applied. She was then transferred back to supine [facility] n on the hospital bed. She was awakened from her general anesthetic suffering no complications. She w as transferred to the PACU in stable condition.
== END 2019-02-21 14:50 | disposition home or self-care (01) ==
PROVIDERS: PCP Family Medicine; Visit Provider Student in an Organized Health Care Education/Training Program
PROC: (CPT 27062; principal; 2019-02-21 11:30)
DX: M70.61 Trochanteric bursitis, right hip (principal)
CPT/HCPCS: 27062; 27305; J0690; J1100; J1885; J2250; J2405; J3010

== ENCOUNTER → 2019-03-03 10:27 | Outpatient (BNVA) | payer MEDICARE, BC, SELFPAY | PROVIDERS: PCP Family Medicine; Referring Provider Family Medicine; Visit Provider Student in an Organized Health Care Education/Training Program | DX: Z47.89 Encounter for other orthopedic aftercare (principal); M70.61 Trochanteric bursitis, right hip ==

== ENCOUNTER → 2019-03-31 08:52 | Outpatient (BNVA) | payer MEDICARE, BC, SELFPAY | PROVIDERS: PCP Family Medicine; Referring Provider Family Medicine; Visit Provider Student in an Organized Health Care Education/Training Program | DX: Z47.89 Encounter for other orthopedic aftercare (principal); M70.61 Trochanteric bursitis, right hip; Z98.890 Other specified postprocedural states ==

== ENCOUNTER 2019-06-06 08:25 | Outpatient (CLI) | payer MEDICARE, BC, SELFPAY | END 2019-06-06 08:45 | PROVIDERS: PCP Family Medicine; Visit Provider Family Medicine | DX: R73.9 Hyperglycemia, unspecified (principal) | CPT/HCPCS: 36415; 83036 ==

== ENCOUNTER → 2019-06-19 08:48 | Outpatient (BNVA) | payer MEDICARE, BC, SELFPAY | PROVIDERS: PCP Family Medicine; Visit Provider Nurse Practitioner Adult Health | DX: G60.9 Hereditary and idiopathic neuropathy, unspecified (principal); R20.2 Paresthesia of skin; I10 Essential (primary) hypertension | CPT/HCPCS: 99213 ==

== ENCOUNTER 2019-06-29 01:45 | Outpatient (CLI) | payer MEDICARE, BC, SELFPAY ==
--- NOTE | 2019-06-29 07:54 | DI.MAMMO_ITS ---
SYMPTOM/DIAGNOSIS: SCREENING Z12.31 MAMMOGRAMS: Mammograms were interpreted according to the usual protocol including computer analysis with CAD system, tomosynthesis and C view imaging. Comparison with prior examinations. No suspicious masses or microcalcifications are seen. There is no definite evidence of malignancy. Breast density category B. IMPRESSION: Category 1, negative mammogram. Routine screening is recommended. Breast density category B. MQSA ASSESSMENT OF FINDINGS: Negative. Category 1. Patient will receive a letter notifying them of these results. BI-RADS category B. There are scattered areas of fibroglandular density.
== END 2019-06-29 02:05 ==
PROVIDERS: PCP Family Medicine; Visit Provider Family Medicine
DX: Z12.31 Encounter for screening mammogram for malignant neoplasm of breast (principal)
CPT/HCPCS: 77063; 77067

== ENCOUNTER → 2019-07-04 12:26 | Outpatient (BNVA) | payer MEDICARE, BC, SELFPAY | PROVIDERS: PCP Family Medicine; Visit Provider Nurse Practitioner Adult Health | DX: G56.03 Carpal tunnel syndrome, bilateral upper limbs (principal); G56.21 Lesion of ulnar nerve, right upper limb; G60.9 Hereditary and idiopathic neuropathy, unspecified; I10 Essential (primary) hypertension | CPT/HCPCS: 95911; 99214 ==

== ENCOUNTER 2019-08-08 10:21 | Outpatient (CLI) | payer MEDICARE, BC, SELFPAY ==
[2019-08-08 10:30] VITALS: BP 120/72; PULSE 84; RESP 20; TEMP 36.4; O2SAT 94
[2019-08-08] MEDS: Omnipaque 240 MG/ML 50 ML BTL IJ (11:16)
[2019-08-08] MEDS: Dexamethasone Sod. Phos./Pres-Free 10 MG/ML VIAL IJ (11:17)
[2019-08-08 11:18] VITALS: BP 130/43; PULSE 87; RESP 14; O2SAT 98
--- NOTE | 2019-08-08 11:20 | DI.RAD_ITS ---
EXAM: XR PAIN CLINIC LUMBAR SP 2V CLINICAL HISTORY: Dx: Lumbar Radiculopathy TECHNIQUE: Realtime digital imaging was performed. CONTRAST MATERIAL: Please refer to the procedure report for complete details. Fluoro time: 20.2 s, 6.51 mGy FINDINGS: Fluoroscopy was utilized by Dr. Womack during the performance of a transforaminal epidural steroid inje ction. Please refer to the procedure report for complete details.
--- NOTE | 2019-08-22 11:59 | PDOC.PAIN ---
Pain Clinic Procedure Note Procedure Note Procedure Note: LUMBAR / SACRAL TRANSFORAMINAL INJECTION ORION CARVER has been referred to the [facility] for a transforaminal nerve root block and steroid injection. COMMENTS: She has had this procedure twice before with good pain relief Patient was interviewed and the medical record reviewed. There were no medical, pharmacologic, radiographic or other structural contraindications to attempting fluoroscopically guided transforaminal nerve root block and epidural steroid injection. Risks and expected side effects as well as potential benefit of the procedure were reviewed and voiced concerns addressed. The printed consent form was signed and witnessed. Standard time-out procedure was performed. Patient was placed in the prone position on the fluoroscopy table and automated blood pressure cuff and pulse oximeter applied. Fluoroscopy was utilized to identify the right L5 neural foramen between L5 and S1. A skin jody was made for the needle insertion site. A Chlorhexadine prep was carried out, and sterile drapes were applied. Local anesthesia was achieved in the skin and subcutaneous tissues. A 22 gauge curved tip spinal needle was then inserted, advanced with fluoroscopic guidance into the neural foramen, confirmed on the lateral view. After negative aspiration, 2 ml of Omnipaque 240 was injected confirming position in A/P and lateral views. This showed a good spread of dye transforaminally into the epidural space. There was no vascular update with contrast injection under continuous fluoroscopy and digital substraction. 15 mg of Dexamethasone was injected, followed by 0.5 ml of 1% Xylocaine flush for the nerve root block, as well. There was no unusual discomfort expressed.The needle was withdrawn. The patient tolerated the procedure well. A Band-Aid was applied. Vital signs were stable throughout the procedure and were as recorded in nursing records. If given, dosages of intravenous drugs for anxiolysis and analgesia were documented in nursing records. Follow up plans and appointments were discussed. Post procedure instruction was given as documented in nursing records and patient was discharged in the care of an identified school bus driver. COMMENTS: She can have the procedure up to 3 times per 12 months. CC: Alejandra Thomson MD
== END 2019-08-08 10:41 ==
PROVIDERS: PCP Family Medicine; Visit Provider Preventive Medicine Occupational Medicine
DX: M54.17 Radiculopathy, lumbosacral region (principal)
CPT/HCPCS: 64483; 72100; Q9967

== ENCOUNTER 2019-09-12 09:32 | Outpatient (CLI) | payer MEDICARE, BC, SELFPAY ==
[2019-09-12 10:18] LABS: Hemoglobin A1C 6.2 % (4.5-6.2)
[2019-09-12 10:47] LABS: Anion Gap 8.7 mmol/L (3-11); BUN 14 mg/dL (7-18); CO2 28.3 mmol/L (21.0-32.0); CREATININE 0.76 mg/dL (0.55-1.02); Calcium 8.6 mg/dL (8.5-10.1); Chloride 99 mmol/L (98-107); Glucose 102 mg/dL (70-100); Potassium 4.4 mmol/L (3.5-5.1); Sodium 136 mmol/L (136-145)
== END 2019-09-12 09:52 ==
PROVIDERS: PCP Family Medicine; Visit Provider Family Medicine
DX: I10 Essential (primary) hypertension (principal); R73.9 Hyperglycemia, unspecified
CPT/HCPCS: 36415; 80048; 83036

== ENCOUNTER 2019-10-17 11:33 | Outpatient (CLI) | payer MEDICARE, BC, SELFPAY ==
[2019-10-16 08:08] VITALS: BP 115/67; PULSE 79; RESP 16; TEMP 35.8; O2SAT 93
--- NOTE | 2019-10-17 12:23 | PDOC.PAIN ---
Pain Clinic Procedure Note Procedure Note Procedure Note: PROCEDURE NOTE Transforaminal Epidural Steroid Injection with Fluoroscopic Guidance at RIGHT L5-S1 Chief Complaint: right leg pain. previously received right L5 TFESI x 2, which provided some pain relief, last injection provided ~30% pain relief and continues to have bad flare up days Pre-operative diagnosis: lumbar radiculopathy Post-operative diagnosis: same as above ORION CARVER has been referred to the [facility] for Lumbar Transforaminal Epidural Steroid Injection right L5-S1 TFESI. COMMENTS: Referring provider: Carolina Atkinson APRN Allergies: PCN, tramadol, hydrocodone. Pre-procedure VAS: 9 out of 10 down right leg. Follow up plan: if this fails to achieve significant pain relief, patient will discuss further treatment plans and/or need for surgical evaluation with Ms Atkinson. ORION CARVER was greeted by the nurse who verified patients name and . Patient was then taken to the fluoroscopy suite. ORION was interviewed and the medical record reviewed. There were no medical, pharmacologic, radiographic or other structural contraindications to attempting fluoroscopically guided transforaminal lumbar epidural steroid injection. The risks, benefits, and potential side effects were reviewed with the patient. Risk include, but not limited to, post dural puncture, headache, infection, nerve injury, allergic reaction, possible increase in symptoms over the ensuing 24 to 48 hours, and paralysis. The patient appeared to understand, questions were answered and the patient agreed to proceed. Once I obtained informed verbal consent, the printed consent form was signed by the patient and myself. Standard time-out procedure was performed. TECHNIQUE: After informed written consent was obtained the patient was placed in the prone position. The lumbar spine was prepped with chloraprep and draped. Sterile technique was observed during the entire procedure ( cap, gloves, and mask were worn). Vitals signs were monitored throughout the procedure. The right side was marked with a radioopaque marker. The skin and subcutaneous structures were anesthetized with lidocaine 1% to a total volume of 3 ML at each level. Under fluoroscopic guidance, in ipsilateral oblique view, co-axial approach, 5'' 22 gauge spinal needle(s) were advanced to the base of the right L5 pedicle(s). The needle(s) were advanced to the superio-posterior aspect of the neural foramen under lateral view. Oblique and AP views were rechecked. Under AP view Omnipaque 240 1 cc's was injected while visualized with fluoroscopy. There was no evidence of intravascular uptake, the epidural space was delineated. Both exiting right L5 and traversing right S1 nerve root were delineated with Omnipaque. Then 15 mg Dexamethasone was injected after negative aspiration, at each level, followed by lidocaine 1% 1.0-ML at each level. (49 cc of Omnipaque was wasted) Outcome: The patient tolerated the procedure well and had stable vital signs. The patient noted after getting up after the procedure that their right leg pain was at a 5 out of 10 level. Follow up plans and appointments were discussed with ORION . The patient was observed in the pain clinic and then discharged after having met discharge criteria to the care of a parts delivery driver. The patient received written instructions as documented in nursing records. Disposition: ORION was discharged from the procedure suite without new neurological complaints. Follow-up: Follow up with Ms Demetrio APRN as scheduled or PRN. Comment: patient reporst that more recently, she has noted increasing axial back pain localized to lower back with radiation to bilateral hips, she is wondering if other injections maybe helpful. I discussed with her that she may have other pain generators and she should schedule a FUV with Ms Atkinson if needed to target other pain generators. I personally performed the entire procedure. Nathan Guajardo MD ABPN-subspecialty board certification in Pain Medicine Attending Physician-Pain Management
[2019-10-17 12:27] VITALS: BP 115/67; PULSE 79; RESP 16; TEMP 35.8; O2SAT 93
[2019-10-17] MEDS: Omnipaque 240 MG/ML 50 ML BTL IJ (12:54)
[2019-10-17] MEDS: Dexamethasone Sod. Phos./Pres-Free 10 MG/ML VIAL IJ (12:54)
[2019-10-17 13:14] VITALS: BP 127/62; PULSE 80; RESP 20; O2SAT 94
--- NOTE | 2019-10-17 13:52 | DI.RAD_ITS ---
EXAM: XR PAIN CLINIC LUMBAR SP 2V CLINICAL HISTORY: Transforaminal Epidural Steroid Injection, lumbar radiculopathy TECHNIQUE: Fluoroscopy was provided for the referring physician for guidance with performing injecti on procedure. Fluoro time: 42.7 sec, 16.26 mGy COMPARISON: No exams were available for comparison FINDINGS: Please see procedure note for details.
== END 2019-10-17 11:53 ==
PROVIDERS: PCP Family Medicine; Visit Provider Internal Medicine
DX: M54.16 Radiculopathy, lumbar region (principal)
CPT/HCPCS: 64483; 72100; Q9967

== ENCOUNTER → 2019-11-06 08:57 | Outpatient (BNVA) | payer MEDICARE, BC, SELFPAY | PROVIDERS: PCP Family Medicine; Referring Provider Family Medicine; Visit Provider Student in an Organized Health Care Education/Training Program | DX: G56.03 Carpal tunnel syndrome, bilateral upper limbs (principal); G56.23 Lesion of ulnar nerve, bilateral upper limbs; I10 Essential (primary) hypertension | CPT/HCPCS: 99213 ==

== ENCOUNTER 2019-11-28 08:17 | Day surgery (SDC) | payer MEDICARE, BC, SELFPAY ==
[2019-11-28] VITALS (11 sets, daily range): BP systolic 121–152; BP diastolic 54–82; PULSE 68–79; RESP 13–23; TEMP 35.9–36.8; O2SAT 92–97
[2019-11-28] MEDS: Lactated Ringers 1,000 ML 80 ML IV (09:05)
--- NOTE | 2019-11-28 09:32 | PDOC.DSDIS_ITS ---
Discharge Plan Disposition Patient Disposition: HOME Condition: Good Discharge Details Reason For Visit: Left Cubital and Carpal tunnel Syndromes Attending Provider: Daniel Clements Primary Care Provider: Alejandra Thomson Home Meds and New Rx's Prescriptions: New celecoxib 200 mg capsule 200 mg PO BID PRN (Reason: pain) Qty: 60 RF: 1 oxycodone 5 mg tablet 5 mg PO Q8H PRN PRNQty: 9 RF: 0 Continued cholecalciferol (vitamin D3) [Vitamin D3] 2,000 unit tablet 2,000 unit PO DAILY RF: 0 fluticasone propionate 50 mcg/actuation spray,suspension 2 spray NURIS DAILY Qty: 9.9 RF: 2 multivitamin [Daily Multi-Vitamin] 1 EACH tablet 1 ea PO DAILY RF: 0 Nexium Packet [address] for susp in packet 40 mg PO BID Qty: 60 RF: 0 Varicella-Zoster Ge/As01b/Pf [Shingrix Vial Kit] 50 MCG INJ 50 mcg IM ONCE Qty: 1 RF: 1 hydrochlorothiazide 25 mg tablet 25 mg PO DAILY Qty: 90 RF: 3 lisinopril 20 mg tablet 20 mg PO DAILY Qty: 90 RF: 4 meclizine 25 mg tablet 25 mg PO TID PRN (Reason: dizziness) Qty: 30 RF: 0 bupropion HCl 300 mg tablet extended release 24 hr 300 mg PO QAM Qty: 30 RF: 2 pregabalin 150 mg capsule 150 mg PO BID Qty: 60 RF: 3 calcium carbonate [Calcium 500] 500 mg calcium (1,250 mg) Tablet 1,000 mg PO DAILY RF: 0 acetaminophen 500 mg tablet 1,000 mg PO Q8H PRN (Reason: pain) Qty: 60 RF: 3 Discharge Instructions Additional Instructions: Activity: You should stay in the sling for the first 2 weeks. You may come out of the sling for gentle motion and hygiene but should largely remain in the sling to allow the incision site to heal. Gentle motion of the elbow, hand, wrist, and fingers is okay and encouraged after the first few days, but no repetitive activites nor heavy lifting. You may apply ice. Medications: - You should take Tylenol and Ibuprofen around the clock. - You have been prescribed Oxycodone for breakthrough pain. Dressings: - The initial surgical dressing should stay in place for 3 days. It may then be removed and kept clean and dry. You should cover with a light gauze dressing. - You may shower after 3 days and get the wound wet. Follow-up: 10 days Referrals: Daniel Clements MD [ [facility] STAFF PHYSICIAN] - Equipment/Supplies: Sling Activity:: Gentle range of motion Remove Dressings/Wound Care:: 72 hours Shower/Bathe:: 72 hours Diet:: As Tolerated Discharge Orders Discharge Orders: Discharge Order (Routine); Ordered 11/28/19 Ordered By: Daniel Clements DS: Diagnosis Discharge Diagnosis (1) Left carpal tunnel syndrome: Status: Acute (2) Cubital tunnel syndrome on left: Status: Acute
[2019-11-28] MEDS: ceFAZolin 2 GM/50 ML BAG IVPB (09:33)
[2019-11-28] MEDS: Normal Saline Flush 10 ML SYR IV (11:21)
[2019-11-28] MEDS: HYDROmorphone 2 MG/ML VIAL IVP (11:22)
[2019-11-28] MEDS: oxyCODONE 5 MG TAB PO (13:20)
--- NOTE | 2019-11-29 06:01 | W.PM.OP ---
Date of service: 11/28/19 Time of Service: 11:01 Operative Note Operative Note DATE OF PROCEDURE: 07/11/19 PRE-OP DIAGNOSIS: Left cubital tunnel syndrome, left carpal tunnel syndrome POST-OP DIAGNOSIS: same PROCEDURE: Left endoscopic carpal tunnel release and Left Cubital Tunnel Decompression SURGEON: Daniel Clements SENIOR MICROSTRATEGY DEVELOPER: Jody Tatum ANESTHESIA: GETA ESTIMATED BLOOD LOSS: 0 PATHOLOGY: none sent TOURNIQUET TIME: 25 COMPLICATIONS: None Patient was transported to: PACU Patient's condition: stable Indications: Donya is a 69-year-old female who has had symptoms of cubital tunnel syndrome and carpal tunnel syndrome. Nonoperative treatment options had been trialed. Nerve conduction studies identified the carpal tunnel as the point of compression and physical exam and history confirmed cubital tunnel as pathology. Given failure of nonoperative treatments and persistent symptoms, I offered operative intervention. I reviewed the technical details of a cubital tunnel decompression along with carpal tunnel release. I reviewed the risk of the procedure to include bleeding, infection, pain, stiffness, tendon instability, damage to the superficial radial nerve, and complete release. Despite these risks, the patient elected to proceed. Findings: The transverse carpal ligament was easily identified and was notably tightened. It was released with endoscopic techniques without difficulty. There was a tightened cubital tunnel. No aberrant muscles or anatomy. The ulnar nerve was release from the first motor branch distally through the [place] proximally. Procedure Description: Donya was greeted in the preoperative holding area. Name and surgical site were confirmed. The history and physical was completed. The consent was reviewed the patient and signed. She was taken back to the operating room. The patient was placed in the supine positioned and a general anesthetic was administered. The left was then prepped with ChloraPrep and draped in a standard fashion after a nonsterile tourniquet was placed high up into the axilla of the arm. Prophylactic antibiotics in the form of cefazolin were administered. A timeout was performed for safe surgery. The surgical sites were drawn on the skin as was the lateral epicondyle. The planned surgical aparicio were anesthetized with 0.25% bupivacaine with epinephrine. The limb was exsanguinated and the tourniquet was inflated where it stayed for 25 minutes. The volar wrist skin was incised with a 15 blade, approximately 1cm. The skin only was cut and the deeper tissue was dissected bluntly with a tenotomy scissor, avoiding passing nerve and venous structures. The fascia was penetrated and opened bluntly. A two-prong skin hook was placed under this proximal fascial edge. A series of hamate finders were used to identify and dilate the carpal tunnel. Synovial elevator was used to free synovial attachments to the underside of the transverse carpal ligament. My thumb was kept in the palm to jody the distal extent of the carpal tunnel and correctly position the hand. The Microaire endoscope was inserted without difficulty and without resistance. Excellent visualization showed horizontally running fibers of the transverse carpal ligament (TCL). The distal extent of the TCL was visualized and the end of the scope palpated with the thumb. The blade was elevated and withdrawn from distal to proximal. The TCL was split into two flaps. The endoscope was reinserted to confirm complete release and any remnant ligament was incised. The scope was withdrawn and the proximal aspect of the carpal tunnel was grossly inspected and appeared release with the median nerve visible. The antebrachial fascia at the level of the wrist was then freed from the overlying skin and then the underlying median nerve with blunt dissection. This was transected longitudinally for about 3cm proximal to the wrist incision. The wound was then irrigated with easy flow of irrigant distally and proximally. The incision was closed with a single 4-0 Nylon suture. Attention was then turned to the medial elbow where a 6 cm incision was made curvilinearly around the medial elbow. The skin was incised only. The deep tissue subcutaneous fat was dissected with a tenotomy scissors trying to protect any branches of the medial antebrachial cutaneous nerve. Any branches that were identified were retracted out of the way. The ulnar nerve was palpated and identified. A small window into the cubital tunnel was created and the nerve is able to be palpated with the [place]. A Metzenbaum scissor was then used to open up the she is starting with the Caceres's ligament. I then worked distal over the ulnar nerve releasing any constraints against the nerve all the way to the fascia of the FCU muscle belly. This muscle belly was bluntly all the way down to the first motor branch of the ulnar nerve. Likewise starting there at the lateral condyle proceeded working proximally to release any constraints over the ulnar nerve. This was taken all the way to the arcade of [place]. The medial intermuscular septum was also palpated in any sharp edges against the ulnar nerve were resected. After fully releasing the nerve it was inspected visually. I was also able to palpate the nerve fully and reach one finger up into the proximal distal aspects to make sure there is no constraints against the nerve. A freer elevator was also used to slide easily against the ulnar nerve without any points of constriction. The arm was then taken through range of motion. The ulnar nerve did not sublux/dislocate out of its groove behind the lateral epicondyle. Therefore, no transposition was performed. The tourniquet was then deflated. Any areas of bleeding were cauterized with bipolar electrocautery. The wound was thoroughly irrigated. The deep tissue was closed with a 3-0 Vicryl. The skin was closed with a 4-0 nylon. The wound was dressed with Xeroform, 4 x 4's, ABD, Kerlix and an Hal wrap. She was placed into a sling. The patient was transferred back to same day surgery area in stable condition.
== END 2019-11-28 14:14 | disposition home or self-care (01) ==
PROVIDERS: PCP Family Medicine; Visit Provider Student in an Organized Health Care Education/Training Program
PROC: 01N54ZZ Release Median Nerve, Percutaneous Endoscopic Approach (ICD-10-PCS; CPT 29848; principal; 2019-11-28 10:15)
PROC: (CPT 64718; 2019-11-28 10:15)
DX: G56.22 Lesion of ulnar nerve, left upper limb (principal); G56.02 Carpal tunnel syndrome, left upper limb
CPT/HCPCS: 64718; 29848; J0690; J1100; J1885; J2405; J2704; L3650

== ENCOUNTER → 2019-12-07 09:40 | Outpatient (BNVA) | payer MEDICARE, BC, SELFPAY | PROVIDERS: PCP Family Medicine; Referring Provider Family Medicine; Visit Provider Student in an Organized Health Care Education/Training Program | DX: Z47.89 Encounter for other orthopedic aftercare (principal); G56.22 Lesion of ulnar nerve, left upper limb; G56.02 Carpal tunnel syndrome, left upper limb ==

== ENCOUNTER → 2019-12-25 10:23 | Outpatient (BNVA) | payer MEDICARE, BC, SELFPAY | PROVIDERS: PCP Family Medicine; Referring Provider Family Medicine; Visit Provider Nurse Practitioner Adult Health | DX: E11.42 Type 2 diabetes mellitus with diabetic polyneuropathy (principal); G56.02 Carpal tunnel syndrome, left upper limb; G56.22 Lesion of ulnar nerve, left upper limb; I10 Essential (primary) hypertension | CPT/HCPCS: 99213 ==

== ENCOUNTER → 2020-01-01 10:15 | Outpatient (BNVA) | payer MEDICARE, BC, SELFPAY | PROVIDERS: PCP Family Medicine; Referring Provider Family Medicine; Visit Provider Student in an Organized Health Care Education/Training Program | DX: G56.01 Carpal tunnel syndrome, right upper limb (principal); M65.331 Trigger finger, right middle finger; G56.21 Lesion of ulnar nerve, right upper limb; I10 Essential (primary) hypertension | CPT/HCPCS: 99213 ==

== ENCOUNTER 2020-01-06 01:18 | Outpatient (CLI) | payer MEDICARE, BC, SELFPAY ==
[2020-01-06 10:07] LABS: Hemoglobin A1C 5.9 % (3.8-5.6)
[2020-01-08 11:15] LABS: Hepatitis C Ab w Rflx HCV PCR Negative (Negative)
== END 2020-01-06 01:38 ==
PROVIDERS: PCP Family Medicine; Visit Provider Family Medicine
DX: E11.9 Type 2 diabetes mellitus without complications (principal); Z11.59 Encounter for screening for other viral diseases
CPT/HCPCS: 36415; 86803; 83036

== ENCOUNTER 2020-01-09 07:52 | Day surgery (SDC) | payer MEDICARE, BC, SELFPAY ==
[2020-01-09] VITALS (7 sets, daily range): BP systolic 124–141; BP diastolic 52–69; PULSE 72–92; RESP 13–18; TEMP 35.9–36.3; O2SAT 92–97
--- NOTE | 2020-01-09 07:25 | PDOC.DSDIS_ITS ---
Documented by User: Daniel Clements MD 01/09/20 07:27 Discharge Plan Disposition Patient Disposition: HOME Condition: Good Discharge Details Reason For Visit: RMF Trigger, R Carpal Tunnel, R Cubital Tunnel Attending Provider: Daniel Clements Primary Care Provider: Alejandra Thomson Home Meds and New Rx's Prescriptions: Continued cholecalciferol (vitamin D3) [Vitamin D3] 2,000 unit tablet 2,000 unit PO DAILY RF: 0 fluticasone propionate 50 mcg/actuation spray,suspension 2 spray NURIS DAILY Qty: 9.9 RF: 2 multivitamin [Daily Multi-Vitamin] 1 EACH tablet 1 ea PO DAILY RF: 0 Nexium Packet [address] for susp in packet 40 mg PO BID Qty: 60 RF: 0 Varicella-Zoster Ge/As01b/Pf [Shingrix Vial Kit] 50 MCG INJ 50 mcg IM ONCE Qty: 1 RF: 1 hydrochlorothiazide 25 mg tablet 25 mg PO DAILY Qty: 90 RF: 3 lisinopril 20 mg tablet 20 mg PO DAILY Qty: 90 RF: 4 meclizine 25 mg tablet 25 mg PO TID PRN (Reason: dizziness) Qty: 30 RF: 0 bupropion HCl 300 mg tablet extended release 24 hr 300 mg PO QAM Qty: 30 RF: 2 pregabalin 150 mg capsule 150 mg PO BID Qty: 60 RF: 3 celecoxib 200 mg capsule 200 mg PO BID PRN (Reason: pain) Qty: 60 RF: 1 acetaminophen 500 mg tablet 1,000 mg PO Q8H PRN (Reason: pain) Qty: 60 RF: 3 calcium carbonate [Calcium 500] 500 mg calcium (1,250 mg) Tablet 1,000 mg PO DAILY RF: 0 oxycodone 5 mg tablet 5 mg PO Q8H PRN PRNQty: 9 RF: 0 Discharge Instructions Additional Instructions: Activity: You should stay in the sling for the first 2 weeks. You may come out of the sling for gentle motion and hygiene but should largely remain in the sling to allow the incision site to heal. Gentle motion of the elbow, hand, wrist, and fingers is okay and encouraged after the first few days, but no repetitive activites nor heavy lifting. You may apply ice. Medications: - You should take Tylenol and Celebrex around the clock. - You have been prescribed Oxycodone for breakthrough pain. Dressings: - The initial surgical dressing should stay in place for 3 days. It may then be removed and kept clean and dry. You should cover with a light gauze dressing. - You may shower after 3 days and get the wounds wet. Follow-up: 10 days Referrals: Daniel Clements MD [ [facility] STAFF PHYSICIAN] - Equipment/Supplies: Sling Activity:: Elevate Remove Dressings/Wound Care:: 72 hours Shower/Bathe:: 72 hours Diet:: Normal Diet Discharge Orders Discharge Orders: Discharge Order (Routine); Ordered 01/09/20 Ordered By: Daniel Clements DS: Diagnosis Discharge Diagnosis (1) Trigger finger, right middle finger: Status: Acute (2) Cubital tunnel syndrome on right: Status: Acute (3) Right carpal tunnel syndrome: Status: Acute Documented by User: SHASHANK Whitfield 01/09/20 10:22 Discharge Plan Disposition Patient Disposition: HOME Condition: Good Discharge Details Reason For Visit: RMF Trigger, R Carpal Tunnel, R Cubital Tunnel Attending Provider: Daniel Clements Primary Care Provider: Alejandra Thomson Home Meds and New Rx's Prescriptions: Continued cholecalciferol (vitamin D3) [Vitamin D3] 2,000 unit tablet 2,000 unit PO DAILY RF: 0 fluticasone propionate 50 mcg/actuation spray,suspension 2 spray NURIS DAILY Qty: 9.9 RF: 2 multivitamin [Daily Multi-Vitamin] 1 EACH tablet 1 ea PO DAILY RF: 0 Nexium Packet [address] for susp in packet 40 mg PO BID Qty: 60 RF: 0 Varicella-Zoster Ge/As01b/Pf [Shingrix Vial Kit] 50 MCG INJ 50 mcg IM ONCE Qty: 1 RF: 1 hydrochlorothiazide 25 mg tablet 25 mg PO DAILY Qty: 90 RF: 3 lisinopril 20 mg tablet 20 mg PO DAILY Qty: 90 RF: 4 meclizine 25 mg tablet 25 mg PO TID PRN (Reason: dizziness) Qty: 30 RF: 0 bupropion HCl 300 mg tablet extended release 24 hr 300 mg PO QAM Qty: 30 RF: 2 pregabalin 150 mg capsule 150 mg PO BID Qty: 60 RF: 3 celecoxib 200 mg capsule 200 mg PO BID PRN (Reason: pain) Qty: 60 RF: 1 acetaminophen 500 mg tablet 1,000 mg PO Q8H PRN (Reason: pain) Qty: 60 RF: 3 calcium carbonate [Calcium 500] 500 mg calcium (1,250 mg) Tablet 1,000 mg PO DAILY RF: 0 oxycodone 5 mg tablet 5 mg PO Q8H PRN PRNQty: 9 RF: 0 Discharge Instructions Additional Instructions: Activity: You should stay in the sling for the first 2 weeks. You may come out of the sling for gentle motion and hygiene but should largely remain in the sling to allow the incision site to heal. Gentle motion of the elbow, hand, wrist, and fingers is okay and encouraged after the first few days, but no repetitive activites nor heavy lifting. You may apply ice. Medications: - You should take Tylenol and Celebrex around the clock. - You have been prescribed Oxycodone for breakthrough pain. Dressings: - The initial surgical dressing should stay in place for 3 days. It may then be removed and kept clean and dry. You should cover with a light gauze dressing. - You may shower after 3 days and get the wounds wet. Follow-up: 10 days Referrals: Daniel Clements MD [ [facility] STAFF PHYSICIAN] - Equipment/Supplies: Sling Activity:: Elevate Remove Dressings/Wound Care:: 72 hours Shower/Bathe:: 72 hours Diet:: Normal Diet Discharge Orders Discharge Orders: Discharge Order (Routine); Ordered 01/09/20 Ordered By: Daniel Clements
[2020-01-09] MEDS: Lactated Ringers 1,000 ML 80 ML IV (08:45)
[2020-01-09] MEDS: ceFAZolin 2 GM/50 ML BAG IVPB (09:47)
[2020-01-09] MEDS: Sodium Bicarbonate 50 MEQ/50 ML VIAL (10:06)
[2020-01-09] MEDS: fentaNYL 100 MCG/2 ML VIAL IVP (11:36)
--- NOTE | 2020-01-09 18:26 | ROE_ITS ---
Date of service: 01/09/20 Time of Service: 10:47 Operative Note Operative Note DATE OF PROCEDURE: 01/09/20 PRE-OP DIAGNOSIS: Right Cubital Tunnel Syndrome, Right Carpal Tunnel Syndrome, Right Middle Finger Trigger Finger POST-OP DIAGNOSIS: same PROCEDURE: Right Cubital Tunnel Decompression with Anterior Subcutaneous Transposition, Right Endoscopic Carpal Tunnel Release, Right Middle Finger Trigger Release SURGEON: Daniel Clements GARBAGE COLLECTOR DRIVER: Taniya Lizarraga ANESTHESIA: GETA ESTIMATED BLOOD LOSS: 0 PATHOLOGY: none sent TOURNIQUET TIME: 35 COMPLICATIONS: None Patient was transported to: PACU Patient's condition: stable Indications: Donya is a 69 year old female who has had symptoms of cubital tunnel syndrome, carpal tunnel syndrome, and a middle finger trigger finger of the right arm. Nonoperative treatment options had been trialed. Nerve conduction studies identified the cubital tunnel as the point of compression. Given failure of nonoperative treatments and persistent symptoms, I offered operative intervention. I reviewed the technical details of a cubital tunnel decompression with possible anterior subcutaneous transposition. I reviewed the risk of the procedure to include bleeding, infection, pain, stiffness, tendon instability, damage to the superficial radial nerve, and complete release. Despite these risks, the patient elected to proceed. Findings: There was a tightened cubital tunnel. The ulnar nerve was release from the first motor branch distally through the [place] proximally. The nerve wanted to sublux aroun the medial epicondyl uring elbow flexion so an anterior subcutaneous transposition was performed. The carpal tunnel was released endoscopically. The A1 fabby of the right middle finger was released. Procedure Description: Donya was greeted in the preoperative holding area. Name and surgical site were confirmed. The history and physical was completed. The consent was reviewed the patient and signed. She was taken back to the operating room. The patient was placed in the supine positioned and a general anesthetic was administered. The right was then prepped with ChloraPrep and draped in a standard fashion after a nonsterile tourniquet was placed high up into the axilla of the arm. Prophylactic antibiotics in the form of cefazolin were administered. A timeout was performed for safe surgery. The surgical site was drawn on the skin just posterior to the lateral epicondyle. The incision was also drawn in the level of the palmar wrist and overlying the A1 fabby for the other procedures. The planned surgical aparicio were anesthetized with 0.5% bupivacaine with epinephrine. The limb was exsanguinated and the tourniquet was inflated where it stayed for 40 minutes. The carpal tunnel was started first. The skin was incised with a 15 blade, approximately 1cm. The skin only was cut and the deeper tissue was dissected bluntly with a tenotomy scissor, avoiding passing nerve and venous structures. The fascia was penetrated and opened bluntly. A two-prong skin hook was placed under this proximal fascial edge. A series of hamate finders were used to identify and dilate the carpal tunnel. Synovial elevator was used to free synovial attachments to the underside of the transverse carpal ligament. My thumb was kept in the palm to jody the distal extent of the carpal tunnel and correctly position the hand. The Microaire endoscope was inserted without difficulty and without resistance. Excellent visualization showed horizontally running fibers of the transverse carpal ligament (TCL). The distal extent of the TCL was visualized and the end of the scope palpated with the thumb. The blade was elevated and withdrawn from distal to proximal. The TCL was split into two flaps. The endoscope was reinserted to confirm complete release and any remnant ligament was incised. The scope was withdrawn and the proximal aspect of the carpal tunnel was grossly inspected and appeared release with the median nerve visible. The antebrachial fascia at the level of the wrist was then freed from the overlying skin and then the underlying median nerve with blunt dissection. This was transected longitudinally for about 3cm proximal to the wrist incision. The wound was then irrigated with easy flow of irrigant distally and proximally. The incision was closed with a single 4-0 Nylon suture. Attention was then turned to the right middle finger trigger release. A longitudinal incision was made through skin only, approximately 1cm, overlying the A1 fabby of the middle finger. The deep tissues were dissected bluntly. Once the A1 fabby and flexor tendons were identified the soft tissue including neurovascular structures were retracted medially and laterally. There were no crossing structures over the A1 fabby. The proximal edge of the fabby was identified and the fabby was incised with tenotomy scissors. There was a release of the tendons once this was fully released. The tendons were then re moved from the wound and inspected. Excess synovium was resected. The proximal and distal aspect of the wound were inspected and there were no other bands crossing or restricting motion to the flexor tendons. The wound was irrigated. It was then closed with two 4-0 nylon sutures. Attention was then turned to the elbow. A 8 cm incision was made curvilinearly around the medial elbow. The skin was incised only. The deep tissue and subcutaneous fat was dissected with a tenotomy scissors trying to protect any branches of the medial antebrachial cutaneous nerve. Any branches that were identified were retracted out of the way. The ulnar nerve was palpated and identified. A small window into the cubital tunnel, sheath overlying the nerve, was created and the nerve was able to be palpated with the [place]. A Metzenbaum scissor was then used to open up the sheath starting with Caceres's ligament. I then worked distal over the ulnar nerve releasing any constraints against the nerve all the way to the fascia of the FCU muscle belly. This muscle belly was bluntly all the way down to the first motor branch of the ulnar nerve and the overlying fascia was incised. Likewise starting there at the lateral epicondyle, I proceeded to work proximally to release any constraints over the ulnar nerve. This was taken all the way to the arcade of [place]. The medial intermuscular septum was also palpated and any sharp edges against the ulnar nerve were resected and released. After fully releasing the nerve it was inspected visually. I was also able to palpate the nerve fully and reach one finger up into the proximal and distal aspects to make sure there were no constraints against the nerve. A freer elevator was also used to slide easily against the ulnar nerve without any points of constriction. The arm was then taken through range of motion. The ulnar nerve did sublux/dislocate out of its groove behind the lateral epicondyle. Therefore, I performed an anterior subcutaneous transposition. A Kb drain was placed around the ulnar nerve and its deeper attachments were bluntly and sharply dissected away. Any vasculature was attempted to stay with the nerve. The nerve was released proximal and distal so there was no kink spots as the nerve was moved anteriorly. Once it was fully released and was able to rest anteriorly without any signs of kink, I then placed the back behind the lateral condyle. Using a knife, I raised a medially based flap of fascia. The nerve was then translated anteriorly and protected. This fascial flap was then tied to the deep dermis underlying the marked area of the medial epicondyle. The nerve was then inspected to make sure that was lying freely over the anterior elbow without any points of compression. The wound was then thoroughly irrigated. The deep structures were injected with bupivacaine. The tourniquet was then deflated. Any areas of bleeding were cauterized with bipolar electrocautery. The wound was thoroughly irrigated. The deep tissue was closed with a 3-0 Vicryl. The skin was closed with a 4-0 nylon. The wounds were dressed with Xeroform, 4 x 4's, ABD, Kerlix and an Hal wrap. Donya was placed into a sling. She was transferred back to the PACU in a stable condition.
== END 2020-01-09 13:25 | disposition home or self-care (01) ==
LOC: SUR 07:53
PROVIDERS: PCP Family Medicine; Visit Provider Student in an Organized Health Care Education/Training Program
PROC: 01N54ZZ Release Median Nerve, Percutaneous Endoscopic Approach (ICD-10-PCS; CPT 29848; principal; 2020-01-09 10:45)
PROC: (CPT 64718; 2020-01-09 10:45)
PROC: (CPT 26055; 2020-01-09 10:45)
DX: G56.21 Lesion of ulnar nerve, right upper limb (principal); G56.01 Carpal tunnel syndrome, right upper limb; M65.331 Trigger finger, right middle finger; I10 Essential (primary) hypertension; K21.9 Gastro-esophageal reflux disease without esophagitis
CPT/HCPCS: 64718; 29848; 26055; J0690; J1100; J2001; J2405; J2704; J3010; L3650

== ENCOUNTER → 2020-01-19 10:36 | Outpatient (BNVA) | payer MEDICARE, BC, SELFPAY | PROVIDERS: PCP Family Medicine; Referring Provider Family Medicine; Visit Provider Student in an Organized Health Care Education/Training Program | DX: Z47.89 Encounter for other orthopedic aftercare (principal); G56.21 Lesion of ulnar nerve, right upper limb; M65.331 Trigger finger, right middle finger; G56.01 Carpal tunnel syndrome, right upper limb; E11.42 Type 2 diabetes mellitus with diabetic polyneuropathy ==

== ENCOUNTER → 2020-03-14 11:42 | Outpatient (BNVA) | payer MEDICARE, BC, SELFPAY | PROVIDERS: PCP Family Medicine; Referring Provider Family Medicine; Visit Provider Student in an Organized Health Care Education/Training Program | DX: Z47.89 Encounter for other orthopedic aftercare (principal); G56.01 Carpal tunnel syndrome, right upper limb; G56.21 Lesion of ulnar nerve, right upper limb; M65.331 Trigger finger, right middle finger; I10 Essential (primary) hypertension ==

== ENCOUNTER → 2020-06-24 09:39 | Outpatient (BNVA) | payer MEDICARE, BC, SELFPAY | PROVIDERS: PCP Family Medicine; Referring Provider Family Medicine; Visit Provider Nurse Practitioner Adult Health | DX: E11.42 Type 2 diabetes mellitus with diabetic polyneuropathy (principal); I10 Essential (primary) hypertension; M54.17 Radiculopathy, lumbosacral region | CPT/HCPCS: 99213 ==

== ENCOUNTER → 2020-06-27 09:35 | Outpatient (BNVA) | payer MEDICARE, BC, SELFPAY | PROVIDERS: PCP Family Medicine; Referring Provider Family Medicine; Visit Provider Student in an Organized Health Care Education/Training Program | DX: Z47.89 Encounter for other orthopedic aftercare (principal); G56.21 Lesion of ulnar nerve, right upper limb; G56.01 Carpal tunnel syndrome, right upper limb | CPT/HCPCS: 99212 ==

== ENCOUNTER 2020-07-18 02:19 | Outpatient (CLI) | payer MEDICARE, BC, SELFPAY ==
--- NOTE | 2020-07-18 09:21 | DI.MAMMO_ITS ---
EXAM: MAMMO SCREENING CLINICAL HISTORY: screening,z12.39 TECHNIQUE: Mammograms were interpreted according to the usual protocol including computer analysis w [employer] CAD system, tomosynthesis and C-view imaging. COMPARISON: 2009 through 2018 FINDINGS: The breasts are composed of scattered fibroglandular densities, Breast Density category B. No suspicious masses or suspicious microcalcifications are seen. No skin thickening or abnormal axillary lymph nodes are seen. There has been no significant change from prior exams. IMPRESSION: BI-RADS Category 1, Negative mammogram Yearly screening mammography is recommended. Breast Density - Category B, scattered fibroglandular densities. A negative radiographic report should not delay biopsy if a dominant or clinically suspicious mass is present. Up to ten percent of cancers are not identified on mammography. A negative report may reinforce clinical impression. Adenosis and dense breasts may obscure an underlying neoplasm. False positive reports average 6 to 10%. Patient will receive a letter notifying them of these results.
== END 2020-07-18 02:39 ==
PROVIDERS: PCP Family Medicine; Visit Provider Family Medicine
DX: Z12.31 Encounter for screening mammogram for malignant neoplasm of breast (principal); R92.2 Inconclusive mammogram
CPT/HCPCS: 77063; 77067

== ENCOUNTER 2020-07-22 03:32 | Outpatient (CLI) | payer MEDICARE, BC, SELFPAY ==
[2020-07-22 09:29] LABS: HCT 42.1 % (36.0-46.0); HGB 14.3 g/dL (11.2-15.7); MCH 32.4 pg (27.0-33.0); MCV 95.5 fL (80-95); MPV 9.6 fL (8.0-11.0); Platelet Count 219 10^3/uL (130-400); RBC 4.41 10^6/uL (3.93-5.22); RDW-SD 45.9 fL; WBC 6.44 10^3/uL (4.4-10.8)
[2020-07-22 09:37] LABS: Hemoglobin A1C 5.6 % (<5.7)
[2020-07-22 10:22] LABS: ALT 25 U/L (14-59); AST 20 U/L (15-37); Alkaline Phosphatase 55 U/L (46-116); Anion Gap 7.6 mmol/L (3-11); BUN 17 mg/dL (7-18); Bilirubin, Total 0.5 mg/dL (0.2-1.0); CO2 28.4 mmol/L (21.0-32.0); Calcium 8.7 mg/dL (8.5-10.1); Chloride 103 mmol/L (98-107); Glucose 97 mg/dL (74-106); Potassium 4.6 mmol/L (3.5-5.1); Sodium 139 mmol/L (136-145); TSH 2.01 uIU/mL (0.36-3.74); Total Protein 6.8 g/dL (6.4-8.2)
== END 2020-07-22 03:52 ==
PROVIDERS: PCP Family Medicine; Visit Provider Family Medicine
DX: I10 Essential (primary) hypertension (principal); R53.83 Other fatigue; R73.9 Hyperglycemia, unspecified
CPT/HCPCS: 36415; 80053; 85027; 83036; 84443

== ENCOUNTER 2020-10-04 17:10 | Emergency (ER) | payer MEDICARE, BC, SELFPAY ==
[2020-10-04] VITALS (45 sets, daily range): BP systolic 73–158; BP diastolic 56–142; PULSE 64–85; RESP 15–35; TEMP 36; O2SAT 93–98
--- NOTE | 2020-10-04 17:22 | DI.CT_ITS ---
EXAM: CT ABDOMEN PELVIS WO INDICATION: abd pain, left lower quad. COMPARISON: No exams were available for comparison TECHNIQUE: CT examination was performed without contrast administration. FINDINGS: Images obtained through the lung bases are unremarkable. Visualized portions of the liver and splee n appear intact. Visualized portions of the pancreas are unremarkable. Gallbladder and bile ducts are CT normal. Abdominal aorta is of normal diameter. No significant abdominal wall hernia. No significant abdominal or pelvic adenopathy. Adrenals appear normal bilaterally. The right kidney is unremarkable in appearance with no hydronephrosis or nephrolithiasis. The left k idney is mildly enlarged and there is marked perinephric fat stranding and moderate hydronephrosis. There is hydroureter to the level of the mid to distal left ureter where there is an obstructing 6 mi llimeter in diameter stone at the level of the superior acetabular rims. No additional ureteral calcification identified. Urinary bladder is nearly empty but otherwise unrem arkable.. IMPRESSION: Left hydronephrosis and hydroureter secondary to obstructing 6 millimeter in diameter stone in the di stal 3rd of the left ureter. RADIATION DOSE DELIVERED: 970.16mGy.cm Total DLP
--- NOTE | 2020-10-04 17:25 | ED.GENADUL_ITS ---
Discharge Plan Disposition Patient Disposition: [facility] Condition: Fair Discharge Details Clinical Impression: Urinary tract obstruction by kidney stone, Acute UTI Primary Care Provider: Alejandra Thomson ED Provider: Alvina Wu Home Meds and New Rx's Prescriptions: No Action cholecalciferol (vitamin D3) [Vitamin D3] 2,000 unit tablet 2,000 unit PO DAILY RF: 0 esomeprazole magnesium [Nexium Packet] [address] for susp in packet 40 mg PO DAILY Qty: 90 RF: 0 multivitamin [Daily Multi-Vitamin] 1 EACH tablet 1 ea PO DAILY RF: 0 lisinopril 20 mg tablet 20 mg PO DAILY Qty: 90 RF: 4 bupropion HCl 150 mg tablet extended release 24 hr 450 mg PO QAM Qty: 90 RF: 6 pregabalin 150 mg capsule 150 mg PO BID Qty: 60 RF: 5 calcium carbonate [Calcium 500] 500 mg calcium (1,250 mg) Tablet 1,000 mg PO DAILY RF: 0 duloxetine [Cymbalta] 20 mg Capsule,Delayed Release(Dr/Ec) 20 mg PO DAILY RF: 0 acetaminophen [Tylenol Arthritis Pain] 650 mg Tablet Extended Release 650 mg PO PRN PRNRF: 0 Discharge Instructions Instructions: Kidney Stones (ED), Urinary Tract Infection in Women (ED) Referrals: Alejandra Thomson MD [Primary Care Provider] - Ron Ward MD [MD CONSULTING PHYSICIAN] - Medical Decision Making presents with nausea and abd pain, no similar history, abdominal exam benign other than reported pain. iv NS bolus 1 liter, zofran 4 mg IVP, labs, ct abd/pelvis: differentials diverticulitis, review of labs and CT shows obstructing left side kidney stone, hydronephrosis with UTI. toradol 15 mg IVP given give flomax 0.4 mg po, ceftriaxone 1 gm IVPB. consult with urology, DR Ward from [facility] placed accepted for transfer, paperwork completed. Medical Records Medical records reviewed: Yes I reviewed the patient's medical records. Medical records narrative: CT abd/pelvis IMPRESSION: Mild left hydronephrosis and left hydroureter with obstructive stone of 6 mm in the distal left ureter. There is left perinephric edema, likely due to infection or inflammation due to passing or obstructive stone. Lab Data Lab results reviewed: Yes I reviewed the patient's lab results. Lab results narrative: 10/04/20 19:50 Urine - Reflex from Ua Urine Culture - Pending Laboratory Tests Range/Units 10/04/20 10/04/20 10/04/20 17:30 17:40 17:40 WBC (4.4-10.8) 10^3/uL 14.22 H RBC (3.93-5.22) 10^6/uL 4.44 Hgb (11.2-15.7) g/dL 14.3 Hct (36.0-46.0) % 40.6 MCV (80-95) fL 91.4 MCH (27.0-33.0) pg 32.2 MCHC (32.0-36.0) % 35.2 RDW (11.7-14.6) % 12.2 Plt Count (130-400) 10^3/uL 226 MPV (8.0-11.0) fL 9.9 Immature Gran % 0.4 Neutrophils % 80.1 Lymphocytes % 10.2 Monocytes % 8.9 Eosinophils % 0.2 Basophils % 0.2 Nucleated RBC % % 0 Absolute Neutrophils (1.2-6.7) 10^3/uL 11.39 H Absolute Lymphocytes (1.2-3.4) 10^3/uL 1.45 Absolute Monocytes (0.1-0.8) 10^3/uL 1.27 H Absolute Eosinophils (0.0-0.7) 10^3/uL 0.03 Absolute Basophils (0.0-0.2) 10^3/uL 0.03 Sodium (136-145) mmol/L 134 L Potassium (3.5-5.1) mmol/L 3.7 Chloride (98-107) mmol/L 100 Carbon Dioxide (21.0-32.0) mmol/L 24.7 Anion Gap (3-11) mmol/L 9.3 BUN (7-18) mg/dL 18 Creatinine (0.55-1.02) mg/dL 1.33 H Estimated GFR/1.73 m2 (mL/min/1.73m2) 39.67 Glucose (74-106) mg/dL 110 H Calcium (8.5-10.1) mg/dL 8.6 Magnesium (1.8-2.4) mg/dL 1.8 Total Bilirubin (0.2-1.0) mg/dL 0.7 AST (15-37) U/L 29 ALT (14-59) U/L 21 Alkaline Phosphatase (46-116) U/L 72 Total Protein (6.4-8.2) g/dL 7.1 Albumin (3.4-5.0) g/dL 3.8 Lipase (73-393) U/L 81 Urine Color (Yellow) Yellow Urine Clarity (Clear) Sl cloudy Urine pH (5-8) 6.0 Ur Specific [place] (1.005-1.025) >= 1.030 H Urine Protein (Negative) mg/dL 30 H Urine Ketones (Negative) mg/dL Negative Urine Blood (Negative) Trace-intact H Urine Nitrite (Negative) Negative Urine Bilirubin (Negative) Negative Urine Urobilinogen (Up TO 0.2) EU/dL 0.2 Ur Leukocyte Esterase (Negative) Small H Urine RBC (0-2) HPF Negative Urine WBC (0-5) HPF >50 H Ur Epithelial Cells (Negative) HPF Many Urine Crystals (Negative) HPF Few calcium oxalate Urine Bacteria (Negative) HPF Rare Urine Casts (Negative) LPF Negative Urine Mucus (Negative) Negative Urine Other (Negative) Negative Ur Culture Indicated? No/sq. contamination Urine Glucose (Negative) mg/dL Negative Range/Units 10/04/20 19:50 WBC (4.4-10.8) 10^3/uL RBC (3.93-5.22) 10^6/uL Hgb (11.2-15.7) g/dL Hct (36.0-46.0) % MCV (80-95) fL MCH (27.0-33.0) pg MCHC (32.0-36.0) % RDW (11.7-14.6) % Plt Count (130-400) 10^3/uL MPV (8.0-11.0) fL Immature Gran % Neutrophils % Lymphocytes % Monocytes % Eosinophils % Basophils % Nucleated RBC % % Absolute Neutrophils (1.2-6.7) 10^3/uL Absolute Lymphocytes (1.2-3.4) 10^3/uL Absolute Monocytes (0.1-0.8) 10^3/uL Absolute Eosinophils (0.0-0.7) 10^3/uL Absolute Basophils (0.0-0.2) 10^3/uL Sodium (136-145) mmol/L Potassium (3.5-5.1) mmol/L Chloride (98-107) mmol/L Carbon Dioxide (21.0-32.0) mmol/L Anion Gap (3-11) mmol/L BUN (7-18) mg/dL Creatinine (0.55-1.02) mg/dL Estimated GFR/1.73 m2 (mL/min/1.73m2) Glucose (74-106) mg/dL Calcium (8.5-10.1) mg/dL Magnesium (1.8-2.4) mg/dL Total Bilirubin (0.2-1.0) mg/dL AST (15-37) U/L ALT (14-59) U/L Alkaline Phosphatase (46-116) U/L Total Protein (6.4-8.2) g/dL Albumin (3.4-5.0) g/dL Lipase (73-393) U/L Urine Color (Yellow) Yellow Urine Clarity (Clear) Clear Urine pH (5-8) 6.5 Ur Specific [place] (1.005-1.025) 1.025 Urine Protein (Negative) mg/dL Negative Urine Ketones (Negative) mg/dL 15 H Urine Blood (Negative) Negative Urine Nitrite (Negative) Negative Urine Bilirubin (Negative) Negative Urine Urobilinogen (Up TO 0.2) EU/dL 1.0 H Ur Leukocyte Esterase (Negative) Trace H Urine RBC (0-2) HPF 0-2 Urine WBC (0-5) HPF 5-10 Ur Epithelial Cells (Negative) HPF Few Urine Crystals (Negative) HPF Few calcium oxalate Urine Bacteria (Negative) HPF Few Urine Casts (Negative) LPF Negative Urine Mucus (Negative) Negative Urine Other (Negative) Ur Culture Indicated? Yes Urine Glucose (Negative) mg/dL Negative HPI General Mode of arrival: ambulatory . Date/Time Provider Initiated Documentation: 10/04/20 17:16 . Limitations to Documentation: no limitations . Information obtained by: patient . HPI Narrative: This is a 60-year-old female patient who presents with a 1 day history of left lower quadrant abdominal pain. She denies any fever chills or recent history. She states prior she was in her usual state of health. She denies any sick contacts with the similar symptoms. She has tolerated some crackers and rather is having significant nausea. No bloody diarrhea no constipation Related Data Home Medications Medication Instructions Recorded Confirmed multivitamin [Daily Multi-Vitamin] 1 ea PO DAILY 03/02/16 10/04/20 cholecalciferol (vitamin D3) 50 2,000 unit PO DAILY 08/15/18 10/04/20 mcg (2,000 unit) tablet lisinopril 20 mg tablet 20 mg PO DAILY #90 tab-cap 08/09/19 10/04/20 calcium carbonate [Calcium 500] 1,000 mg PO DAILY 11/27/19 10/04/20 esomeprazole magnesium 40 mg 40 mg PO DAILY #90 packet 07/08/20 10/04/20 granules delayed release for susp bupropion HCl 150 mg 24 hr tablet, 450 mg PO QAM #90 tab 09/10/20 10/04/20 extended release pregabalin 150 mg capsule 150 mg PO BID #60 cap 09/10/20 10/04/20 acetaminophen [Tylenol Arthritis 650 mg PO PRN PRN 10/04/20 10/04/20 Pain] duloxetine [Cymbalta] 20 mg PO DAILY 10/04/20 10/04/20 Previous Rx's Medication Instructions Recorded lisinopril 20 mg tablet 20 mg PO DAILY #90 tab-cap 08/09/19 esomeprazole magnesium 40 mg 40 mg PO DAILY #90 packet 07/08/20 granules delayed release for susp bupropion HCl 150 mg 24 hr tablet, 450 mg PO QAM #90 tab 09/10/20 extended release pregabalin 150 mg capsule 150 mg PO BID #60 cap 09/10/20 Allergies Allergy/AdvReac Type Severity Reaction Status Date / Time Penicillins Allergy Unknown HIVES Verified 10/04/20 17:27 tramadol AdvReac Mild [place]/Vomiting; Verified 10/04/20 17:27 headaches hydrocodone AdvReac Unknown H/A Verified 10/04/20 17:27 sertraline AdvReac Headache Verified 10/04/20 17:27 General Stated Complaint: Abd Prob TIFFANIE: 3 Review of Systems Constitutional Constitutional: Denies fever(s) and Reports poor appetite ENT Ears, Nose, Mouth, and Throat: Denies vertigo and Denies dizziness Cardiovascular Cardiovascular: Denies chest pain, Denies rapid heart rate and Denies dyspnea Respiratory Respiratory: Denies chest congestion and Denies dyspnea Gastrointestinal Gastrointestinal: Reports abdominal pain, Denies melena, Denies constipation, Denies diarrhea, Reports nausea and Reports vomiting Genitourinary Genitourinary: Denies difficulty voiding Musculoskeletal Musculoskeletal: Denies arthralgias Neurologic Neurologic: Denies vertigo and Denies dizziness [facility] Medical History (Updated 10/04/20 @ 20:32 by Alvina Wu NP) Esophageal reflux Tucker's esophaguus EGD 05/2014 EGD 08/15/19 Dr. [place]. Per pt. results came back with no Barretts present Essential hypertension Idiopathic peripheral neuropathy Non-alcoholic fatty liver disease Pre-diabetes Primary osteoarthritis of right knee xray/femoro-patellar OA (imaging + symptoms) Right lumbosacral radiculopathy Varicose veins of lower extremity Surgical History Cubital tunnel syndrome on right s/p decompression and anterior subcutaneous transposition (01/09/20) Left carpal tunnel syndrome (11/28/19) S/P ECTR 11/28/2019 Right carpal tunnel syndrome s/p ECTR (01/09/20) Trigger finger, right middle finger s/p release 01/09/20 Trochanteric bursitis of right hip Steroid injection: 12/07/18 Tx c bursa debridement and IT band lengthening DOS: 02/21/19 Dr. Clements Family History Mother Disorder of liver FAILURE Diabetes Alcohol abuse Heart disease Smoker Father Disorder of liver FAILURE Alcohol abuse Heart disease Smoker Sister Diabetes Essential hypertension Neoplasm COLON/LIVER Sister Diabetes Essential hypertension Heart disease cardiomyopathy Sister Diabetes Brother Diabetes Essential hypertension Hyperlipidemia Neoplasm THROAT/LIVER Brother Diabetes Essential hypertension Neoplasm SKIN Daughter Graves disease Social History Smoking/Tobacco Use Status: Former Tobacco Use Tobacco: How many years used: 20 Smoking risk assessment performed?: Yes Alcohol Intake: current Alcohol Intake frequency: holidays/special occasions only Alcohol type: wine Drug use: Never Substance use type: does not use Household members: spouse Housing: house Number of Children: 2 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 Current gender identity: female Other: - Panda What type of physical activity do you participate in: walking Duration: 45-60 minutes/day Frequency: 5-6 times per week Do you feel safe at home: Yes Do you feel safe in your relationship?: Yes Exam Const General: cooperative, healthy appearing, comfortable and no acute distress Nutritional Appearance: average body habitus Orientation: alert, awake and oriented x3 HENMT Head: normal to inspection, normocephalic and atraumatic Mouth: moist mucous membranes Chest Chest: normal inspection of the chest Resp Effort & Inspection: normal respiratory effort Auscultation: clear to auscultation bilaterally Cardio Rate: regular rate Rhythm: regular rhythm GI Inspection: normal to inspection Palpation: soft, not firm, no guarding, no hernias, no masses, not rigid and tender in the LLQ Auscultation: normal bowel sounds Skin General skin exam: no rashes or lesions noted Neuro General: patient alert, patient awake and patient oriented x3 Extrem General: normal to inspection and full ROM
[2020-10-04] MEDS: Omnipaque 350 MG/ML 50 ML BTL IJ (17:45)
--- NOTE | 2020-10-04 17:45 | NUR.NOTE ---
Nursing Note:Started drinking PO contrast
[2020-10-04] MEDS: Normal Saline 1,000 ML 1000 ML IV (17:51)
[2020-10-04] MEDS: Ondansetron 4 MG/2 ML VIAL IVP (17:53)
[2020-10-04 17:55] LABS: Abs Immature Grans 0.05 10^3/uL (0.0-0.06); Absolute Basophil Count 0.03 10^3/uL (0.0-0.2); Absolute Eosinophil Count 0.03 10^3/uL (0.0-0.7); Absolute Lymphocyte Count 1.45 10^3/uL (1.2-3.4); Basophils % 0.2; Eosinophils % 0.2; HCT 40.6 % (36.0-46.0); HGB 14.3 g/dL (11.2-15.7); Immature Grans % 0.4; Lymphocytes % 10.2; MCH 32.2 pg (27.0-33.0); MCHC 35.2 % (32.0-36.0); MCV 91.4 fL (80-95); MPV 9.9 fL (8.0-11.0); Monocytes % 8.9; Neutrophils % 80.1; Nucleated RBC 0 %; Platelet Count 226 10^3/uL (130-400); RBC 4.44 10^6/uL (3.93-5.22); RDW 12.2 % (11.7-14.6); RDW-SD 40.8 fL; WBC 14.22 10^3/uL (4.4-10.8)
[2020-10-04 17:57] LABS: Absolute Monocyte Count 1.27 10^3/uL (0.1-0.8); Absolute Neutrophil Count 11.39 10^3/uL (1.2-6.7)
[2020-10-04 18:01] LABS: Bilirubin Negative (Negative); Blood Trace-intact (Negative); Clarity Sl Cloudy (Clear); Glucose Negative (Negative); Ketones Negative (Negative); Leukocyte Esterase Small (Negative); Nitrite Negative (Negative); Specific Gravity >= 1.030 (1.005-1.025); Urobilinogen 0.2 EU/dL (Up TO 0.2)
[2020-10-04 18:10] LABS: ALT 21 U/L (14-59); AST 29 U/L (15-37); Albumin 3.8 g/dL (3.4-5.0); Alkaline Phosphatase 72 U/L (46-116); Anion Gap 9.3 mmol/L (3-11); BUN 18 mg/dL (7-18); Bilirubin, Total 0.7 mg/dL (0.2-1.0); CO2 24.7 mmol/L (21.0-32.0); CREATININE 1.33 mg/dL (0.55-1.02); Calcium 8.6 mg/dL (8.5-10.1); Chloride 100 mmol/L (98-107); Estimated GFR 39.67 (mL/min/1.73m2); Glucose 110 mg/dL (74-106); Lipase 81 U/L (73-393); Magnesium 1.8 mg/dL (1.8-2.4); Potassium 3.7 mmol/L (3.5-5.1); Sodium 134 mmol/L (136-145); Total Protein 7.1 g/dL (6.4-8.2)
[2020-10-04 18:13] LABS: Bacteria Rare HPF (Negative); Casts Negative LPF (Negative); Crystals Few Calcium Oxalate HPF (Negative); Epithelial Cells Many HPF (Negative); Mucus Negative (Negative); Other Cells Negative (Negative); RBC Negative HPF (0-2); WBC >50 HPF (0-5)
[2020-10-04 18:14] LABS: C & S Indicated? No/Sq. Contamination
--- NOTE | 2020-10-04 19:30 | DI.VRAD_ITS ---
PROCEDURE INFORMATION: Exam: CT Abdomen And Pelvis Without Contrast Exam date and time: 10/04/2020 7:12 PM Age: 70 years old Clinical indication: Abdominal pain; Localized; Left lower quadrant (llq); Patient HX: Pain x1day TECHNIQUE: Imaging protocol: Computed tomography of the abdomen and pelvis without contrast. Radiation optimization: All CT scans at this facility use at least one of these dose optimization techniques: automated exposure control; mA and/or kV adjustment per patient size (includes targeted exams where dose is matched to clinical indication); or iterative reconstruction. Other contrast: Oral, [id number], 50; COMPARISON: CR XR hip RT complete AP pelvis 11/11/2018 2:23 PM FINDINGS: Liver: Normal. No mass. Gallbladder and bile ducts: Normal. No calcified stones. No ductal dilation. Pancreas: Normal. No ductal dilation. Spleen: Normal. No splenomegaly. Adrenal glands: Normal. No mass. Kidneys and ureters: There is mild left hydronephrosis and left hydroureter. There is diffuse perinephric edema and edema along the proximal ureter. There is a 6 mm obstructive stone in the distal left ureter (image 85 series 2). Stomach and bowel: There is mild diverticulosis without signs of acute inflammation. Small bowel is within normal limits in size. Stomach is grossly unremarkable. Appendix: Appendix is normal. Intraperitoneal space: Unremarkable. No free air. No significant fluid collection. Vasculature: There are calcifications of abdominal aorta and its branches. Lymph nodes: Unremarkable. No enlarged lymph nodes. Urinary bladder: Unremarkable as visualized. Reproductive: Unremarkable as visualized. Bones/joints: There are degenerative changes in the thoracolumbar spine. This is most pronounced with endplates sclerosis and moderate to marked loss of height of intervertebral disc space at L5-S1. Soft tissues: Unremarkable. IMPRESSION: Mild left hydronephrosis and left hydroureter with obstructive stone of 6 mm in the distal left ureter. There is left perinephric edema, likely due to infection or inflammation due to passing or obstructive stone. Dictated and Authenticated by: Abran Vásquez MD. Ordering:MIKAYLA Tinsley MD
[2020-10-04 19:56] LABS: Bilirubin Negative (Negative); Blood Negative (Negative); Clarity Clear (Clear); Glucose Negative (Negative); Ketones 15 mg/dL (Negative); Leukocyte Esterase Trace (Negative); Nitrite Negative (Negative); Specific Gravity 1.025 (1.005-1.025); pH 6.5 (5-8)
[2020-10-04 20:08] LABS: Bacteria Few HPF (Negative); C & S Indicated? Yes; Casts Negative LPF (Negative); Crystals Few Calcium Oxalate HPF (Negative); Epithelial Cells Few HPF (Negative); Mucus Negative (Negative); RBC 0-2 HPF (0-2)
[2020-10-04] MEDS: Ketorolac 15 MG/ML VIAL IVP (20:46)
[2020-10-04] MEDS: Tamsulosin 0.4 MG CAPCR PO (20:48)
[2020-10-04] MEDS: cefTRIAXone 1 GM/50 ML BAG IVPB (20:53)
== END 2020-10-04 21:50 | disposition short-term general hospital (02) ==
PROVIDERS: Emergency Provider Nurse Practitioner Acute Care; PCP Family Medicine
DX: N13.6 Pyonephrosis (principal); N39.0 Urinary tract infection, site not specified; R11.0 Nausea; I10 Essential (primary) hypertension
CPT/HCPCS: 36415; 80053; 83690; 96361; 96365; 96375; 99285; 74176; 81003; 81015; 83735; 85025; 87086; J0696; J1885; J2405; Q9967

== ENCOUNTER 2020-11-07 16:21 | Outpatient (REF) | payer MEDICARE, BC, SELFPAY ==
[2020-11-07 16:51] LABS: Creatinine,Urine 40.92 mg/dL; Sodium, Urine 39 mmol/L
[2020-11-07 16:56] LABS: Creatinine,24hr Ur 1.31 g/24hr (0.60-1.80); Total Volume 3225 ml
[2020-11-07 16:57] LABS: CLEAVED CELLS 126 mmol/24h (40-220); Total Volume 3225 ml
[2020-11-08 10:33] LABS: Calcium Urine 5.4 mg/dL (See Note); Calcium Urine 24 hr 174 mg/24hrs (100-300); Timed Urine Volume 3225 mL
[2020-11-08 10:35] LABS: Phosphorus Urine 45.1 mg/dL (See Note); Phosphorus Urine 24hr 1.5 g/24hrs (0.4-1.3); Timed Urine Volume 3225 mL; Uric Acid Urine 15.7 mg/dL (See Note); Uric Acid Urine 24hr 506 mg/24hrs (250-750)
[2020-11-08 10:42] LABS: Magnesium Random Urine <2.0 mg/dL (See Note); Timed Urine Volume 3225 mL
[2020-11-09 10:11] LABS: Citrate Excretion, 24hr, U 158 mg/24 h; Urine Volume 3225 mL
[2020-11-09 12:28] LABS: Oxalate, U 0.61 mmol/24 h; Oxalate, U 53.7 mg/24 h (9.7 - 40.5); Urine Volume 3225 mL
== END 2020-11-07 16:41 ==
LOC: LBN 16:21
PROVIDERS: PCP Family Medicine; Visit Provider Urology
DX: N20.1 Calculus of ureter (principal)
CPT/HCPCS: 82507; 83735; 81050; 82340; 82570; 83945; 84105; 84300; 84560

== ENCOUNTER 2020-12-17 02:29 | Outpatient (CLI) | payer MEDICARE, BC, SELFPAY ==
[2020-12-17 12:33] LABS: Anion Gap 8.7 mmol/L (3-11); BUN 16 mg/dL (7-18); CO2 27.3 mmol/L (21.0-32.0); CREATININE 0.7 mg/dL (0.55-1.02); Calcium 9.2 mg/dL (8.5-10.1); Chloride 96 mmol/L (98-107); Glucose 95 mg/dL (74-106); Potassium 4.9 mmol/L (3.5-5.1); Sodium 132 mmol/L (136-145)
== END 2020-12-17 02:30 | disposition home or self-care (01) ==
LOC: LBO 02:29
PROVIDERS: PCP Family Medicine; Visit Provider Urology
DX: N20.0 Calculus of kidney (principal)
CPT/HCPCS: 36415; 80048

== ENCOUNTER 2021-01-16 01:49 | Outpatient (CLI) | payer MEDICARE, BC, SELFPAY ==
--- NOTE | 2021-01-16 07:15 | DI.CT_ITS ---
EXAM: CT HEAD WO/W CLINICAL HISTORY: on/off dysphasia/falls/on-off arm weaknes/COOPER,R47.02. TECHNIQUE: Imaging Protocol: Axial computed tomography images with coronal and sagittal reformatted images were created and reviewed. CONTRAST MATERIAL: Intravenous: Omnipaque 350 Contrast volume:100 mL contrast route:IV - COMPARISON: No exams were available for comparison FINDINGS: Ventricles and Extra axial spaces: Normal in size and morphology for the patient's age. Hemorrhage: None. Cerebral parenchyma: There are areas of decreased attenuation in the white matter likely reflecting m icrovascular ischemic change. No acute territorial infarct. Enhancement: No suspicious enhancement. [place]: Unremarkable. Midline shift: None. Brainstem/Cerebellum: Normal. Calvarium: Normal. Visualized Paranasal sinuses/Mastoids: Clear. IMPRESSION: No acute intracranial process. RADIATION DOSE DELIVERED: 1,411.36mGy.cm Total DLP 1,411.36mGy.cm Total DLP DATA REPOSITORY: All CT scans at this facility are submitted to the National Radiology Data Registry (NRDR) Dose Index Registry (DIR) with the [employer] ([employer]). RADIATION OPTIMIZATION: All CT scans at this facility use at least one of these dose optimization te chniques: automated exposure control; mA and/or kV adjustment per patient size (includes targeted exa ms where dose is matched to clinical indication); or iterative reconstruction.
[2021-01-16] MEDS: Normal Saline - Diluent 50 ML VIAL IV (11:08)
[2021-01-16] MEDS: Omnipaque 350 MG/ML 100 ML BTL IJ (11:08)
== END 2021-01-16 02:09 ==
PROVIDERS: PCP Family Medicine; Visit Provider Family Medicine
DX: R47.02 Dysphasia (principal); E87.1 Hypo-osmolality and hyponatremia
CPT/HCPCS: 36415; 80053; 70470; 84550; J3490

== ENCOUNTER 2021-01-16 03:36 | Outpatient (CLI) | payer MEDICARE, BC, SELFPAY ==
[2021-01-16 11:38] LABS: ALT 24 U/L (14-59); AST 20 U/L (15-37); Alkaline Phosphatase 76 U/L (46-116); Anion Gap 6.4 mmol/L (3-11); BUN 14 mg/dL (7-18); Bilirubin, Total 0.7 mg/dL (0.2-1.0); CO2 28.6 mmol/L (21.0-32.0); CREATININE 0.8 mg/dL (0.55-1.02); Calcium 9.2 mg/dL (8.5-10.1); Chloride 95 mmol/L (98-107); Glucose 92 mg/dL (74-106); Sodium 130 mmol/L (136-145); Total Protein 7.6 g/dL (6.4-8.2); Uric Acid 3.3 mg/dL (2.6-6.0)
== END 2021-01-16 03:37 | disposition home or self-care (01) ==
LOC: LBO 03:37
PROVIDERS: PCP Family Medicine; Visit Provider Family Medicine
DX: E87.1 Hypo-osmolality and hyponatremia (principal)
CPT/HCPCS: 36415; 80053; 84550

== ENCOUNTER → 2021-01-23 12:18 | Outpatient (BNVA) | payer MEDICARE, BC, SELFPAY | PROVIDERS: PCP Family Medicine; Referring Provider Family Medicine; Visit Provider Psychiatry & Neurology Neurology | DX: R51.9 Headache, unspecified (principal); E87.1 Hypo-osmolality and hyponatremia; G60.9 Hereditary and idiopathic neuropathy, unspecified; R25.1 Tremor, unspecified; R26.89 Other abnormalities of gait and mobility; R47.89 Other speech disturbances | CPT/HCPCS: 99215 ==

== ENCOUNTER 2021-01-29 04:33 | Outpatient (CLI) | payer MEDICARE, BC, SELFPAY ==
[2021-01-29 12:47] LABS: Anion Gap 8.6 mmol/L (3-11); BUN 13 mg/dL (7-18); CO2 25.4 mmol/L (21.0-32.0); CREATININE 0.9 mg/dL (0.55-1.02); Calcium 8.4 mg/dL (8.5-10.1); Chloride 98 mmol/L (98-107); Glucose 91 mg/dL (74-106); Potassium 4.7 mmol/L (3.5-5.1); Sodium 132 mmol/L (136-145)
== END 2021-01-29 04:34 | disposition home or self-care (01) ==
LOC: LBO 04:33
PROVIDERS: PCP Family Medicine; Visit Provider Family Medicine
DX: E87.1 Hypo-osmolality and hyponatremia (principal)
CPT/HCPCS: 36415; 80048

== ENCOUNTER 2021-02-12 01:59 | Outpatient (CLI) | payer MEDICARE, BC, SELFPAY ==
[2021-02-12] MEDS: Omnipaque 350 MG/ML 100 ML BTL IJ (15:26)
[2021-02-12] MEDS: Normal Saline Flush 10 ML SYR IVP (15:27)
[2021-02-12] MEDS: Normal Saline - Diluent 50 ML VIAL IV (15:27)
--- NOTE | 2021-02-12 15:30 | DI.CT_ITS ---
EXAM: CT CHEST W CLINICAL HISTORY: siadh/significant weight loss/fatigue,E22.2 TECHNIQUE: Imaging Protocol: Axial computed tomography images with coronal and sagittal reformatted images were created and reviewed CONTRAST MATERIAL: Intravenous: Omnipaque 350 Contrast volume:70 ml. COMPARISON: No exams were available for comparison FINDINGS: Tracheobronchial tree: Patent where visualized. Mediastinum and [place]ima: No dominant adenopathy or fluid collection. Pulmonary parenchyma: No consolidation or dominant measurable mass. No architectural distortion. Pleura: No effusion or pneumothorax. Heart: The heart is not dilated. Minimal coronary artery calcifications are seen. Aorta: Thoracic aorta non-dilated. Mild calcification. Upper abdomen: Unremarkable. Lymph nodes: Within normal limits. Bones: Minimal degenerative changes in the thoracic spine. More severe degenerative changes are note d in the lower cervical region. Soft tissues: Unremarkable. IMPRESSION: Unremarkable CT of the thorax. RADIATION DOSE DELIVERED: 604.6mGy.cm Total DLP DATA REPOSITORY: All CT scans at this facility are submitted to the National Radiology Data Registry (NRDR) Dose Index Registry (DIR) with the [employer] ([employer]). RADIATION OPTIMIZATION: All CT scans at this facility use at least one of these dose optimization te chniques: automated exposure control; mA and/or kV adjustment per patient size (includes targeted exa ms where dose is matched to clinical indication); or iterative reconstruction.
== END 2021-02-12 02:19 ==
PROVIDERS: PCP Family Medicine; Visit Provider Family Medicine
DX: E22.2 Syndrome of inappropriate secretion of antidiuretic hormone (principal); R63.4 Abnormal weight loss; R53.83 Other fatigue
CPT/HCPCS: 71260; J3490

== ENCOUNTER 2021-03-05 03:36 | Outpatient (CLI) | payer MEDICARE, BC, SELFPAY ==
[2021-03-05 10:56] LABS: Anion Gap 9.8 mmol/L (3-11); BUN 19 mg/dL (7-18); CO2 26.2 mmol/L (21.0-32.0); CREATININE 0.9 mg/dL (0.55-1.02); Calcium 9.3 mg/dL (8.5-10.1); Chloride 100 mmol/L (98-107); Glucose 94 mg/dL (74-106); Potassium 4.5 mmol/L (3.5-5.1); Sodium 136 mmol/L (136-145); TSH 1.55 uIU/mL (0.36-3.74)
== END 2021-03-05 03:37 | disposition home or self-care (01) ==
PROVIDERS: PCP Family Medicine; Visit Provider Family Medicine
DX: E22.2 Syndrome of inappropriate secretion of antidiuretic hormone (principal); R53.83 Other fatigue; I10 Essential (primary) hypertension
CPT/HCPCS: 36415; 80048; 84443

== ENCOUNTER → 2021-04-08 12:50 | Outpatient (BNVA) | payer MEDICARE, BC, SELFPAY | PROVIDERS: PCP Family Medicine; Referring Provider Family Medicine; Visit Provider Nurse Practitioner Adult Health | DX: R51.9 Headache, unspecified (principal); G60.9 Hereditary and idiopathic neuropathy, unspecified; R20.2 Paresthesia of skin; M54.16 Radiculopathy, lumbar region; Z98.890 Other specified postprocedural states | CPT/HCPCS: 99213; 99215 ==

== ENCOUNTER 2021-04-22 12:46 | Outpatient (CLI) | payer MEDICARE, BC, SELFPAY ==
[2021-04-22 13:03] VITALS: BP 125/60; PULSE 77; RESP 16; TEMP 36.6; O2SAT 99
--- NOTE | 2021-04-22 13:42 | DI.RAD_ITS ---
Exam(s) XR PAIN CLINIC LUMBAR SP 2V EXAM: XR PAIN CLINIC LUMBAR SP 2V CLINICAL HISTORY: DX: Lumbar Radiculopathy TECHNIQUE: 2D and realtime digital imaging was performed. CONTRAST MATERIAL: Refer to procedure report. COMPARISON: No exams were available for comparison FINDINGS: Fluoroscopy was provided for Dr. Guajardo during the performance of a right facet injection. Please refer to the procedure report for complete details. Ka,r=12.72 mGy IMPRESSION:
[2021-04-22] MEDS: Dexamethasone Sod. Phos./Pres-Free 10 MG/ML VIAL IJ (13:46)
[2021-04-22] MEDS: Omnipaque 240 MG/ML 50 ML BTL IJ (13:49)
[2021-04-22 13:52] VITALS: BP 131/77; PULSE 75; RESP 21; O2SAT 95
--- NOTE | 2021-04-22 14:02 | PDOC.PAIN ---
Pain Clinic Procedure Note Procedure Note Procedure Note: LUMBAR / SACRAL TRANSFORAMINAL INJECTION Donya Puri has been referred to the [facility] for a transforaminal nerve root block and steroid injection. COMMENTS: chronic right L5 radiculopathy, benefited from previous interventional pain procedures. Last injection in 2019. Patient was interviewed and the medical record reviewed. There were no medical, pharmacologic, radiographic or other structural contraindications to attempting fluoroscopically guided transforaminal nerve root block and epidural steroid injection. Risks and expected side effects as well as potential benefit of the procedure were reviewed and voiced concerns addressed. The printed consent form was signed and witnessed. Standard time-out procedure was performed. Patient was placed in the prone position on the fluoroscopy table and automated blood pressure cuff and pulse oximeter applied. Fluoroscopy was utilized to identify the right neural foramen between L5 and sacral ala . A skin jody was made for the needle insertion site. A Chlorhexadine prep was carried out, and sterile drapes were applied. Local anesthesia was achieved in the skin and subcutaneous tissues. A 22 gauge curved tip spinal needle was then inserted, advanced with fluoroscopic guidance into the neural foramen, confirmed on the lateral view. After negative aspiration, 2 ml of Omnipaque 240 was injected confirming position in A/P and lateral views. This showed a good spread of dye transforaminally into the epidural space. There was no vascular update with contrast injection under continuous fluoroscopy and digital substraction. 15 mg of Dexamethasone was injected, followed by 0.5 ml of 1% Xylocaine flush for the nerve root block, as well. There was no unusual discomfort expressed.The needle was withdrawn. The patient tolerated the procedure well. A Band-Aid was applied. Vital signs were stable throughout the procedure and were as recorded in nursing records. If given, dosages of intravenous drugs for anxiolysis and analgesia were documented in nursing records. Follow up plans and appointments were discussed. Post procedure instruction was given as documented in nursing records and patient was discharged in the care of an identified double bottom driver. COMMENTS: Pre vas score 8 out of 10 and post procedure vas score remains similar. Nathan Guajardo MD Pain Management CC: Alejandra Thomson MD
== END 2021-04-22 12:47 | disposition home or self-care (01) ==
LOC: PC 12:46
PROVIDERS: PCP Family Medicine; Visit Provider Internal Medicine
DX: M54.16 Radiculopathy, lumbar region (principal)
CPT/HCPCS: 64483; 72100; Q9967

== ENCOUNTER 2021-05-13 10:48 | Outpatient (CLI) | payer MEDICARE, BC, SELFPAY ==
--- NOTE | 2021-05-13 07:15 | DI.RAD_ITS ---
Exam(s) XR PAIN CLINIC LUMBAR SP 2V EXAM: XR PAIN CLINIC LUMBAR SP 2V CLINICAL HISTORY: Dx: Lumbar Radiculopathy TECHNIQUE: 2D and realtime digital imaging was performed. CONTRAST MATERIAL: Refer to procedure report. COMPARISON: No exams were available for comparison FINDINGS: Fluoroscopy was provided for Dr. Guajardo during the performance of a lumbar epidural steroid injection. Please refer to the procedure report for complete details. Ka,r=5.82 mGy IMPRESSION:
[2021-05-13 11:12] VITALS: BP 106/71; PULSE 70; RESP 19; TEMP 36.5; O2SAT 96
[2021-05-13] MEDS: Omnipaque 240 MG/ML 50 ML BTL IJ (11:42)
[2021-05-13] MEDS: methylPREDNISolone ACETATE 80 MG/ML VIAL IJ (11:42)
--- NOTE | 2021-05-13 11:44 | PDOC.PAIN ---
Pain Clinic Procedure Note Procedure Note Procedure Note: Lumbar Epidural Steroid Injection Procedure Note Pre-operative diagnosis: lumbar radiculopathy Post-operative diagnosis: same as above COMMENTS: patient has chronic numbness/parethesia involving predominantly right hip/buttock, lateral thigh, dorsum of right foot and burning of the right foot, more recently has left sided symptoms to a much lesser degree, mostly involving left hip and left foot pain that is described as burning. She recently was evaluated by Ms Carolina Atkinson APRN in clinic for an interval follow up and was recommended to have a lumbar epidural steroid injection at L5-S1 to provide symptomatic relief of bilateral lower leg symptoms. Unfortunately, last right L5 TFESI did not provide any pain relief of her usual right leg symptoms. Donya Puri has been referred to the [facility] for lumbar epidural steroid injection. The patient was greeted by the nurse who verified patients name and . Patient was then taken to the fluoroscopy suite. The patient was interviewed and the medial record reviewed. There were no medical, pharmacologic, radiographic, or other structural contraindications to attempting fluoroscopically guided lumbar epidural steroid injection. Risks and expected side effects as well as potential benefits of the procedure were reviewed and voiced concerns expressed. The patient consent form was signed and witnessed. Standard patient time-out procedure was performed. The patient was placed in the prone position on the fluoroscopy table and automated blood pressure cuff and pulse oximeter applied. The skin entry point for entering/approaching the epidural space by a L5-S1 and marked. Following thorough chlorhexadine preparation of the skin and draping and 1% lidocaine infiltration of the skin entry point and subcutaneous tissues, a 18 gauge Touhy needle was placed under fluoroscopic guidance and with loss of resistance technique into the epidural space. Needle tip placement and depth were aided and confirmed by fluoroscopy. There was no paresthesia or return of blood or CSF through the needle. 1 cc's of Omnipaque 240 was injected with clear epidural spread confirmed with fluoroscopy. 80mg depomedrol was injected. This is followed by 2cc of preservative free 1% lidocaine and 1cc of preservative free normal saline to flush out of the medication. There was not any unusual discomfort expressed by Donya Puri. Patient's vital signs were stable throughout the procedure and were as recorded in nursing records. Follow up plans and appointments were discussed with patient. Post procedure instruction was given as documented in nursing records and having met discharge criteria and was discharged from the [facility]. COMMENTS: Pre-procedure VAS 6 out of 10 and post-procedure VAS 3/10. Nathan Guajardo MD Pain Management
[2021-05-13 11:45] VITALS: BP 134/62; PULSE 73; RESP 16; O2SAT 95
== END 2021-05-13 10:49 | disposition home or self-care (01) ==
LOC: PC 10:49
PROVIDERS: PCP Family Medicine; Visit Provider Internal Medicine
DX: M54.16 Radiculopathy, lumbar region (principal)
CPT/HCPCS: 62323; 72100; J1040; Q9967

== ENCOUNTER → 2021-05-20 12:29 | Outpatient (BNVA) | payer MEDICARE, BC, SELFPAY | PROVIDERS: PCP Family Medicine; Referring Provider Family Medicine; Visit Provider Nurse Practitioner Adult Health | DX: R51.9 Headache, unspecified (principal); G60.9 Hereditary and idiopathic neuropathy, unspecified; M54.16 Radiculopathy, lumbar region | CPT/HCPCS: 99213; 99215 ==

== ENCOUNTER 2021-06-23 03:07 | Outpatient (CLI) | payer MEDICARE, BC, SELFPAY ==
[2021-06-23 11:35] LABS: BUN 16 mg/dL (7-18); CREATININE 0.8 mg/dL (0.55-1.02); Calcium 9.1 mg/dL (8.5-10.1); Chloride 101 mmol/L (98-107); Glucose 104 mg/dL (74-106); Potassium 4.5 mmol/L (3.5-5.1); Sodium 138 mmol/L (136-145)
== END 2021-06-23 03:08 | disposition home or self-care (01) ==
LOC: LBO 03:07
PROVIDERS: PCP Family Medicine; Visit Provider Nurse Practitioner Family
DX: E87.1 Hypo-osmolality and hyponatremia (principal)
CPT/HCPCS: 36415; 80048

== ENCOUNTER → 2021-06-25 10:08 | Outpatient (BNVA) | payer MEDICARE, BC, SELFPAY | PROVIDERS: PCP Family Medicine; Referring Provider Family Medicine; Visit Provider Nurse Practitioner Adult Health | DX: G56.23 Lesion of ulnar nerve, bilateral upper limbs (principal); G60.9 Hereditary and idiopathic neuropathy, unspecified | CPT/HCPCS: 95909; 99214 ==

== ENCOUNTER → 2021-07-04 09:11 | Outpatient (BNVA) | payer MEDICARE, BC, SELFPAY | PROVIDERS: PCP Family Medicine; Referring Provider Nurse Practitioner Adult Health; Visit Provider Student in an Organized Health Care Education/Training Program | DX: G56.23 Lesion of ulnar nerve, bilateral upper limbs (principal) | CPT/HCPCS: 99213 ==

== ENCOUNTER 2021-08-01 03:48 | Outpatient (CLI) | payer MEDICARE, BC, SELFPAY ==
--- NOTE | 2021-08-01 07:45 | DI.MAMMO_ITS ---
Exam(s) MAMMO SCREENING EXAM: MAMMO SCREENING CLINICAL HISTORY: screening,Z12.39 TECHNIQUE: Bilateral full field digital CC and MLO mammographic images were obtained with 3D tomosyn thesis and utilizing computer aided detection (CAD). COMPARISON: Available for comparison. FINDINGS: Masses/Architectural Distortion: There is a focal asymmetry in the central upper left breast on the M LO view. This area should be further evaluated with a spot compression view and ultrasound. Microcalcifications: No suspicious pleomorphic-type are seen. Skin Thickening/Nipple Retraction: None. IMPRESSION: 1. Focal asymmetry in the upper central left breast on the MLO view. 2. Further evaluation with spot compression views requested. Ultrasound may be indicated at that jaiden e. BI-RADS Category 0 - Assessment Incomplete: Need additional imaging evaluation Breast Density - Category B - Scattered areas of fibroglandular density Breast density category C or D implies that the patient has dense breast tissue. Dense breast tissue is very common and is not abnormal but dense breast tissue can make it harder to find cancer on a ma mmogram. Also, dense breast tissue may increase their breast cancer risk. This information about the result of the mammogram report was provided to the patient to raise their awareness. Use this report when you speak with the patient about their risks for breast cancer, which includes their family hist ory. At that time, you may recommend for more screening tests (Ultrasound or MRI) as they might be us eful based on their risk. A negative radiographic report should not delay biopsy if a dominant or clinically suspicious mass is present. Up to ten percent of cancers are not identified on mammography. A negative report may reinforce clinical impression. Adenosis and dense breasts may obscure an underlying neoplasm. False positive reports average 6 to 10%. Patient will receive a letter notifying them of these results.
== END 2021-08-01 04:08 ==
PROVIDERS: PCP Family Medicine; Visit Provider Family Medicine
DX: Z12.31 Encounter for screening mammogram for malignant neoplasm of breast (principal); R92.8 Other abnormal and inconclusive findings on diagnostic imaging of breast
CPT/HCPCS: 77063; 77067

== ENCOUNTER 2021-08-18 00:58 | Outpatient (CLI) | payer MEDICARE, BC, SELFPAY ==
--- NOTE | 2021-08-18 | DI.US_ITS ---
Exam(s) MG MAMMO SCREEN CALL BACK UNI US BREAST LT LIMITED EXAM: US BREAST LT LIMITED CLINICAL HISTORY: F/U MAMMO, FOCAL ASYMMETRY UPPER CENTRAL LT BREAST TECHNIQUE: Ultrasound performed using standard protocol. COMPARISON: US ABDOMEN ULTRASOUND (P) from 04/11/2014 FINDINGS: Additional mammographic views of left breast and left breast ultrasound are interpreted in conjunctio n. These examinations were obtained to evaluate an area of asymmetric density in the central portion of left breast about 4 cm behind the nipple. Additional mammographic views fail to show a discrete mass. Breast ultrasound shows no evidence of mass or cyst. IMPRESSION: No specific evidence of malignancy at this time. Follow-up unilateral left breast mammogram recommen ded in 6 months. BI-RADS Cat 3 - 6 month - Probably Benign Finding: Recommend follow-up imaging in 6 months Breast Density - Category B - Scattered areas of fibroglandular density DATA REPOSITORY:
== END 2021-08-18 01:18 ==
PROVIDERS: PCP Family Medicine; Visit Provider Family Medicine
DX: R92.8 Other abnormal and inconclusive findings on diagnostic imaging of breast (principal)
CPT/HCPCS: 76642; 77063; 77067

== ENCOUNTER 2021-10-29 01:48 | Outpatient (CLI) | payer MEDICARE, BC, SELFPAY ==
--- NOTE | 2021-10-29 08:00 | DI.MRI_ITS ---
Exam(s) MR LUMBAR SPINE WO EXAM: MR LUMBAR SPINE WO CLINICAL HISTORY: Lumbosacral radiculopathy,M54.17,WORSENING PAIN TO TOPS OF BILAT FEET. TECHNIQUE: Multiplanar multisequence MRI of the Lumbar spine was performed. COMPARISON: MR MR lumbar spine wo from 08/22/2018 FINDINGS: Bones: The last intervertebral disc space is designated the L5/S1 level for the numbering purpose of this examination. The vertebral body heights are well maintained. Alignment is satisfactory. Endpla te degenerative signal changes are present, particularly at L5-S1. There is a hemangioma or fatty res t in the T12 vertebral body. Cord: The conus tip ends at the L1 level. It is of normal size and signal intensity. T12-L1: No disc herniations or bulges are present. No central spinal canal or neural foraminal stenos is. L1-2: There is a mild diffuse disc bulge. No significant central spinal canal or neural foraminal st enosis is seen. No central spinal canal or neural foraminal stenosis. L2-3: There is a diffuse disc bulge present. Mild narrowing of the central spinal canal is present. No significant neural foraminal stenosis is present. L3-4: There is a diffuse disc bulge. Degenerative changes of the facets are present. The findings c ause bwbr-ln-wrmfcurv central spinal canal stenosis. There is moderate bilateral neural foraminal st enosis. L4-5: There is a diffuse disc bulge. There are hypertrophic changes of the facets. Mild narrowing o f the central spinal canal is noted. Moderately severe bilateral neural foraminal stenosis is presen t. L5-S1: No disc herniations or bulges are present. Degenerative changes of the facets are present. No significant central spinal canal stenosis is present.Moderately severe bilateral neural foraminal st enosis is present. Soft tissues: The visualized SI joints and sacrum are well maintained. The paraspinal soft tissues ar e unremarkable. IMPRESSION: Multilevel degenerative changes in the lumbar spine as described above. DATA REPOSITORY:
== END 2021-10-29 02:08 ==
PROVIDERS: PCP Family Medicine; Visit Provider Preventive Medicine Occupational Medicine
DX: M51.17 Intervertebral disc disorders with radiculopathy, lumbosacral region; M47.27 Other spondylosis with radiculopathy, lumbosacral region
CPT/HCPCS: 72148

== ENCOUNTER 2021-11-05 10:02 | Outpatient (CLI) | payer MEDICARE, BC, SELFPAY ==
--- NOTE | 2021-11-05 10:00 | RT.EKG_ITS ---
APPROVED REPORT Exam: Resting ECG Reason for Exam: pre op Patient Location: O HR:76 bpm ECG Measurements Heart Rate 76 AXIS MI 179 P 46 QRSd 92 QRS -17 QT 379 T 61 QTc 427 Conclusion Sinus rhythm...normal P axis, V-rate 60- 99 Normal Electrocardiogram
== END 2021-11-05 10:03 | disposition home or self-care (01) ==
LOC: DI.CM 10:03
PROVIDERS: PCP Family Medicine; Visit Provider Nurse Practitioner Family
DX: Z01.818 Encounter for other preprocedural examination (principal); G56.23 Lesion of ulnar nerve, bilateral upper limbs
CPT/HCPCS: 93010

== ENCOUNTER 2021-11-20 11:26 | Outpatient (CLI) | payer MEDICARE, BC, SELFPAY ==
[2021-11-20 11:37] VITALS: BP 123/69; PULSE 85; RESP 18; TEMP 36.6; O2SAT 95
--- NOTE | 2021-11-20 11:50 | DI.RAD_ITS ---
Exam(s) XR PAIN CLINIC LUMBAR SP 2V EXAM: XR PAIN CLINIC LUMBAR SP 2V CLINICAL HISTORY: DX: Lumbar Radiculopathy. TECHNIQUE: Fluoroscopy was provided for the referring physician for guidance with performing injecti on procedure. COMPARISON: No exams were available for comparison FINDINGS: Please see procedure note for details. Fluoro time 34.1 seconds RADIATION DOSE DELIVERED: zhang Chacon= 15.04 mGy
[2021-11-20] MEDS: methylPREDNISolone ACETATE 80 MG/ML VIAL IJ ×2 (11:57→12:09)
[2021-11-20] MEDS: Omnipaque 240 MG/ML 50 ML BTL IJ ×2 (11:58→12:08)
--- NOTE | 2021-11-20 12:00 | PDOC.PAIN ---
Pain Clinic Procedure Note Procedure Note Procedure Note: Lumbar Epidural Steroid Injection Procedure Note COMMENTS: She has done well with LESIs in the L4-L5 level in the past. DX: Lumbar radiculopathy Pre-procedure pain VAS = 6/10 Donya Puri has been referred to the [facility] for lumbar epidural steroid injection. The patient was greeted by the nurse who verified patients name and . Patient was then taken to the fluoroscopy suite. The patient was interviewed and the medial record reviewed. There were no medical, pharmacologic, radiographic, or other structural contraindications to attempting fluoroscopically guided lumbar epidural steroid injection. Risks and expected side effects as well as potential benefits of the procedure were reviewed and voiced concerns expressed. The patient consent form was signed and witnessed. Standard patient time-out procedure was performed. The patient was placed in the prone position on the fluoroscopy table and automated blood pressure cuff and pulse oximeter applied. The skin entry point for entering/approaching the epidural space at L4-L5 and marked. Following thorough chlorhexadine preparation of the skin and draping and 1% lidocaine infiltration of the skin entry point and subcutaneous tissues, a 18 gauge Touhy needle was placed under fluoroscopic guidance and with loss of resistance technique into the epidural space. Needle tip placement and depth were aided and confirmed by fluoroscopy. There was no paresthesia or return of blood or CSF through the needle. 1 cc's of Omnipaque 240 was injected with clear epidural spread confirmed with fluoroscopy. 80mg depomedrol was injected. There was not any unusual discomfort expressed by Donya Puri. Patient's vital signs were stable throughout the procedure and were as recorded in nursing records. Follow up plans and appointments were discussed with patient. Post procedure instruction was given as documented in nursing records and having met discharge criteria and was discharged from the [facility]. COMMENTS: If this procedure is helpful, it can be completed up to 3 times per 12 months. Post-procedure pain VAS = 1/10. Casey Womack DO, MPH [facility]-Pain Management [facility] for Pain Management
[2021-11-20 12:09] VITALS: BP 136/81; PULSE 67; RESP 18; O2SAT 96
== END 2021-11-20 11:27 | disposition home or self-care (01) ==
LOC: PC 11:26
PROVIDERS: PCP Family Medicine; Visit Provider Preventive Medicine Occupational Medicine
DX: M54.16 Radiculopathy, lumbar region (principal)
CPT/HCPCS: 62323; 72100; J1040; Q9967

== ENCOUNTER 2021-12-18 02:39 | Outpatient (CLI) | payer MEDICARE, BC, SELFPAY ==
[2021-12-18 10:24] LABS: ALT 25 U/L (14-59); AST 15 U/L (15-37); Albumin 3.7 g/dL (3.4-5.0); Alkaline Phosphatase 71 U/L (46-116); BUN 17 mg/dL (7-18); Bilirubin, Total 0.5 mg/dL (0.2-1.0); CREATININE 0.9 mg/dL (0.55-1.02); Calcium 8.5 mg/dL (8.5-10.1); Calculated LDL 85 mg/dL (<100); Chloride 101 mmol/L (98-107); Cholesterol 146 mg/dL (<200); Glucose 92 mg/dL (74-106); HDL Cholesterol 45 mg/dL (40-60); Potassium 4.4 mmol/L (3.5-5.1); Sodium 136 mmol/L (136-145); Total Protein 7.2 g/dL (6.4-8.2); Triglyceride 81 mg/dL (<150)
[2021-12-18 10:25] LABS: Vitamin B12 > 2000 pg/mL (193-986)
== END 2021-12-18 02:40 | disposition home or self-care (01) ==
LOC: LBO 02:39
PROVIDERS: PCP Family Medicine; Visit Provider Family Medicine
DX: G60.8 Other hereditary and idiopathic neuropathies (principal); I10 Essential (primary) hypertension; Z00.00 Encounter for general adult medical examination without abnormal findings
CPT/HCPCS: 36415; 80053; 80061; 82607

== ENCOUNTER → 2021-12-24 10:10 | Outpatient (BNVA) | payer MEDICARE, BC, SELFPAY | PROVIDERS: PCP Family Medicine; Referring Provider Family Medicine; Visit Provider Nurse Practitioner Adult Health | DX: G62.89 Other specified polyneuropathies (principal); R73.03 Prediabetes | CPT/HCPCS: 99213; 99214 ==

== ENCOUNTER 2022-02-13 00:53 | Outpatient (CLI) | payer MEDICARE, BC, SELFPAY ==
--- NOTE | 2022-02-13 06:45 | DI.MAMMO_ITS ---
Exam(s) MAMMO DIAGNOSTIC UNI EXAM: MAMMO DIAGNOSTIC UNI -LEFT CLINICAL HISTORY: 3-6 mo f/u,r92.8,z09. TECHNIQUE: Both CC and MLO mammographic images were obtained with 3D tomosynthesis technique and uti lizing computer aided detection (CAD). COMPARISON: Prior mammograms were reviewed, the most recent being July and August 2021. Breas t ultrasound at that time was also reviewed.. FINDINGS: On today's mammogram the previously described finding on the MLO view is less evident, further eviden ce that it was benign finding. 3D imaging this region reveals no significant focal findings. There are no new spiculated masses nor malignant-appearing microcalcification groups in the left [address] and there is no new architectural distortion or skin thickening-traction. IMPRESSION: No radiographic evidence of malignancy in the left breast. Appropriate follow-up is to keep this patient on her yearly mammogram schedule, this implying that he r next bilateral mammogram would be in 6 months.. The patient was informed of the findings and follow-up recommendations [facility]. BI-RADS Category 2 - Benign Findings Breast Density - Category B - Scattered areas of fibroglandular density Breast density Category C or D implies that the patient has dense breast tissue. Dense breast tissue can make it harder to find cancer on a mammogram. Dense breast tissue is also associated with an incr eased risk of breast cancer. This information about the result of the mammogram report was provided to the patient to raise their awareness. Use this report when you speak with the patient about their risks for breast cancer, which includes their family history. At that time, you may recommend additional screening tests (Ultrasoun d or MRI) as these tests may add significant information. A negative radiographic report should not delay biopsy if a dominant or clinically suspicious mass is present. Up to ten percent of cancers are not identified on mammography. A negative report may reinforce clinical impression. Adenosis and dense breasts may obscure an underlying neoplasm. False positive reports average 6 to 10%. Patient will receive a letter notifying them of these results.
== END 2022-02-13 01:13 ==
PROVIDERS: PCP Family Medicine; Visit Provider Family Medicine
DX: R92.8 Other abnormal and inconclusive findings on diagnostic imaging of breast (principal); N64.59 Other signs and symptoms in breast
CPT/HCPCS: 77061; 77065; G0279

== ENCOUNTER → 2022-02-18 09:29 | Outpatient (BNVA) | payer MEDICARE, BC, SELFPAY | PROVIDERS: PCP Family Medicine; Visit Provider Nurse Practitioner Adult Health | DX: G60.8 Other hereditary and idiopathic neuropathies (principal); M54.17 Radiculopathy, lumbosacral region; R73.03 Prediabetes | CPT/HCPCS: 99213 ==

== ENCOUNTER 2022-04-13 13:33 | Outpatient (REF) | payer MEDICARE, BC, SELFPAY ==
[2022-04-13 22:15] LABS: CLEAVED CELLS 113 mmol/24h (40-220); Creatinine,24hr Ur 0.91 g/24hr (0.60-1.80); Sodium, Urine 43 mmol/L; Total Volume 2625 ml
[2022-04-15 09:28] LABS: Calcium Urine 6.5 mg/dL (See Note); Calcium Urine 24 hr 171 mg/24hrs (100-300); Timed Urine Volume 2625 mL
[2022-04-15 09:29] LABS: Timed Urine Volume 2625 mL; Uric Acid Urine 13.7 mg/dL (See Note); Uric Acid Urine 24hr 360 mg/24hrs (250-750)
[2022-04-15 09:32] LABS: Phosphorus Urine 25.4 mg/dL (See Note); Phosphorus Urine 24hr 0.7 g/24hrs (0.4-1.3); Timed Urine Volume 2625 mL
[2022-04-15 09:33] LABS: Magnesium 24hr Urine 107.6 mg/24hrs (12.0-192.0); Magnesium Random Urine 4.1 mg/dL (See Note); Timed Urine Volume 2625 mL
[2022-04-16 12:58] LABS: Oxalate, U 0.18 mmol/24 h; Oxalate, U 15.8 mg/24 h (9.7 - 40.5); Urine Volume 2625 mL
[2022-04-17 08:49] LABS: Misc Referral (MAYO) See Comments
== END 2022-04-13 13:34 | disposition home or self-care (01) ==
LOC: LBN 13:33
PROVIDERS: Urology; PCP Family Medicine; Visit Provider Family Medicine
DX: N20.0 Calculus of kidney (principal)
CPT/HCPCS: 83735; 81050; 82340; 82570; 83945; 84105; 84300; 84560

== ENCOUNTER 2022-04-29 15:47 | Outpatient (CLI) | payer MEDICARE, BC, SELFPAY ==
--- NOTE | 2022-04-29 06:00 | DI.RAD_ITS ---
Exam(s) XR PAIN CLINIC LUMBAR SP 2V EXAM: XR PAIN CLINIC LUMBAR SP 2V CLINICAL HISTORY: Dx: Lumbar Spondylosis TECHNIQUE: 2D and realtime digital imaging was performed. CONTRAST MATERIAL: Refer to procedure report. COMPARISON: No exams were available for comparison FINDINGS: Fluoroscopy was provided for Dr. Womack during the performance of a lumbar injection.. Please refer t o the procedure report for complete details. Ka,r=15.2 mGy IMPRESSION:
[2022-04-29 15:56] VITALS: BP 135/73; PULSE 72; RESP 18; TEMP 36.5; O2SAT 97
--- NOTE | 2022-04-29 16:24 | PDOC.PAIN ---
Pain Clinic Procedure Note Procedure Note Procedure Note: Lumbar/Sacral Medial Branch Blocks #1 Donya Puri has been referred to the [facility] for lumbar/sacral medial branch blocks. COMMENTS: I previously evaluated her in the office on 02/26/22. Pre-procedure pain VAS = 8/10. DxL Lumbosacral spondylosis without myelopathy Patient was interviewed and the medical record reviewed. There were no medical, pharmacologic, radiographic or other structural contraindications to attempting fluoroscopically guided local anesthetic lumbar/sacral medial branch blocks. Risks and expected side effects as well as potential benefit of the procedure were reviewed and voiced concerns addressed. The printed consent form was signed and witnessed. Standard time-out procedure was performed. Patient was placed in the prone position on the fluoroscopy table and automated blood pressure cuff and pulse oximeter applied. The skin entry points for approaching the anatomic target points of the segmental medial branches of the bilateral L3, L4, and L5DR were identified with anfluoroscopy and marked. Following thorough Chlorhexadine preparation of the skin and draping a 25 gauge 3.5 spinal needle was placed under fluoroscopic guidance down on to the target point for each respective segmental medial branch.Position was confirmed in A/P, oblique and lateral views with 0.25ml of omnipaque 240. At this point I injected 0.5ml of 0.5% Bupivacaine at the segmental sensory nerves. Vital signs were stable throughout the procedure and were as recorded in the docflowsheet by the nursing staff. Follow up plans and appointments were discussed and was instructed to keep careful note of how the usual pain was modified by these injections. Specifically was asked to keep a pain diary for the next 24 hours using a numeric pain scale of 0-10 and report these results at the follow-up visit. Post procedure instruction was given as documented in the nursing documentation and having met discharge criteria. Patient was discharged from the [facility]. Based on the medial branches blocked today, if the patient has adequate relief and we are able to proceed to radiofrequency ablation, the treatment should result in the denervation of the bilateral L4-L5 and L5-S1 FACET JOINTS. We would expect to denervate a total of 4 facets during the radiofrequency ablation. COMMENTS: Post-procedure pain VAS = 0/10. Casey Womack DO, MPH [facility]-Pain Management [facility] - Center for Pain Management CC: Lisa Villalba
[2022-04-29] MEDS: Omnipaque 240 MG/ML 50 ML BTL IJ (16:35)
[2022-04-29] MEDS: Bupivacaine 0.5% Pres-Free 30 ML VIAL IJ (16:35)
[2022-04-29 16:36] VITALS: BP 116/59; PULSE 79; RESP 20; O2SAT 96
== END 2022-04-29 15:48 | disposition home or self-care (01) ==
LOC: PC 15:48
PROVIDERS: PCP Family Medicine; Visit Provider Preventive Medicine Occupational Medicine
DX: M47.817 Spondylosis without myelopathy or radiculopathy, lumbosacral region (principal)
CPT/HCPCS: 64493; 64494; 72100; Q9967

== ENCOUNTER → 2022-06-01 14:30 | Outpatient (BNVA) | payer MEDICARE, BC, SELFPAY | PROVIDERS: PCP Family Medicine; Referring Provider Family Medicine; Visit Provider Nurse Practitioner Adult Health | DX: G60.8 Other hereditary and idiopathic neuropathies (principal); M54.16 Radiculopathy, lumbar region | CPT/HCPCS: 99213 ==

== ENCOUNTER 2022-06-25 10:14 | Outpatient (CLI) | payer MEDICARE, BC, SELFPAY ==
--- NOTE | 2022-06-25 06:00 | DI.RAD_ITS ---
Exam(s) XR PAIN CLINIC LUMBAR SP 2V EXAM: XR PAIN CLINIC LUMBAR SP 2V CLINICAL HISTORY: DX: lumbar spondylosis. TECHNIQUE: Fluoroscopy was provided for the referring physician for guidance with performing pain cl inic injection procedure. COMPARISON: No exams were available for comparison FINDINGS: Please see procedure note for details. Fluoro time: 64.3 seconds RADIATION DOSE DELIVERED: Inesr=13.9 mGy
[2022-06-25 10:27] VITALS: BP 126/69; PULSE 74; RESP 16; TEMP 36.7; O2SAT 95
--- NOTE | 2022-06-25 11:05 | PDOC.PAIN_ITS ---
Pain Clinic Procedure Note Procedure Note Procedure Note: Lumbar/Sacral Medial Branch Blocks Donya Puri has been referred to the [facility] Management Center for lumbar/sacral medial branch blocks. COMMENTS: She did well well with #1 on 04/29/22. Her pre-procedure pain VAS was 10/10. Dx: Lumbosacral spondylosis without myelopathy Patient was interviewed and the medical record reviewed. There were no medical, pharmacologic, radiographic or other structural contraindications to attempting fluoroscopically guided local anesthetic lumbar/sacral medial branch blocks. Risks and expected side effects as well as potential benefit of the procedure were reviewed and voiced concerns addressed. The printed consent form was signed and witnessed. Standard time-out procedure was performed. Patient was placed in the prone position on the fluoroscopy table and automated blood pressure cuff and pulse oximeter applied. The skin entry points for approaching the anatomic target points of the segmental medial branches of bilateral L3-L5 were identified with anfluoroscopy and marked. Following thorough Chlorhexadine preparation of the skin and draping and 1% lidocaine infiltration of the skin entry points and subcutaneous tissues, a 22 gauge spinal needle was placed under fluoroscopic guidance down on to the target point for each respective segmental medial branch.Position was confirmed in A/P, oblique and lateral views with 0.25ml of omnipaque 240. At this point In in jected 0.5cc of 2% Lidocaine at each of the sensory branches.. Vital signs were stable throughout the procedure and were as recorded in the docflowsheet by the nursing staff. Follow up plans and appointments were discussed and was instructed to keep careful note of how the usual pain was modified by these injections. Specifically was asked to keep a pain diary for the next 24 hours using a nume lyla pain scale of 0-10 and report these results at the follow-up visit. Post procedure instruction was given as documented in the nursing documentation and having met discharge criteria. Patient was discharged from the [facility] Management [facility]. Based on the medial branches blocked today, if the patient has adequate relief and we are able to proceed to radiofrequency ablation, the treatment should result in the denervation of the bilateral L4-L5 and L5-S1 FACET JOINTS. We would expect to denervate a total of 4 facets during the radiofrequency ablation. COMMENTS: Post-procedure pain VAS was 1/10. Casey Womack DO, MPH [facility]-Pain Management [facility]-Center for Pain Management CC: Lisa Villalba
[2022-06-25] MEDS: Lidocaine 2% Pres-Free 5 ML VIAL IJ (11:13)
[2022-06-25] MEDS: Omnipaque 240 MG/ML 50 ML BTL IJ (11:14)
== END 2022-06-25 10:15 | disposition home or self-care (01) ==
LOC: PC 10:14
PROVIDERS: PCP Family Medicine; Visit Provider Preventive Medicine Occupational Medicine
DX: M47.817 Spondylosis without myelopathy or radiculopathy, lumbosacral region (principal)
CPT/HCPCS: 64493; 64494; 72100; Q9967

== ENCOUNTER 2022-07-09 07:48 | Outpatient (CLI) | payer MEDICARE, BC, SELFPAY ==
--- NOTE | 2022-07-09 06:00 | DI.RAD_ITS ---
Exam(s) XR PAIN CLINIC LUMBAR SP 2V EXAM: XR PAIN CLINIC LUMBAR SP 2V CLINICAL HISTORY: Dx: Lumbar Spondylosis TECHNIQUE: 2D and realtime digital imaging was performed. Radiologist not present. CONTRAST MATERIAL: None. COMPARISON: No exams were available for comparison FINDINGS: Fluoroscopy was provided for pain management therapy. Please refer to procedure report or details. Cumulative dose: Kar=17.06 mGy IMPRESSION: RADIATION DOSE DELIVERED:
[2022-07-09 08:05] VITALS: BP 120/74; PULSE 68; RESP 20; TEMP 36.9; O2SAT 95
[2022-07-09] MEDS: fentaNYL 100 MCG/2 ML VIAL IVP ×2 (08:46→08:56)
[2022-07-09] MEDS: Midazolam 2 MG/2 ML VIAL IVP (08:51)
[2022-07-09 09:31] VITALS: BP 134/70; PULSE 76; RESP 18; O2SAT 98
[2022-07-09] MEDS: methylPREDNISolone ACETATE 40 MG/ML VIAL IJ (09:33)
[2022-07-09] MEDS: Bupivacaine 0.5% Pres-Free 10 ML VIAL IJ (09:33)
[2022-07-09] MEDS: Lidocaine 2% Pres-Free 5 ML VIAL IJ (09:33)
--- NOTE | 2022-07-09 09:41 | PDOC.PAIN_ITS ---
Pain Clinic Procedure Note Procedure Note Procedure Note: Bilateral Lumbar Radiofrequency with Coolief Machine PROCEDURE NOTE Date of Service: July 09, 2022 Patient: Donya Puri Provider: Casey Womack DO, MPH Pre Operative Diagnosis: Lumbosacral Spondylosis without Myelopathy Post Operative Diagnosis: Same Post procedure pain; VAS= 9/10 PROCEDURE: Radiofrequency Ablation of medial branches - Bilateral L3 L4 L5 and lateral branches of bilateral S1. Donya Puri was brought into the fluoroscopy suite and positioned into the prone position on the fluoroscopy table and allowed to adjust to a position of comfort. A grounding pad was placed on the [right/left] thigh. The lumbar region was widely prepped with a chloraprep solution, allowed to air dry and draped in standard sterile surgical fashion. Local anesthesia was provided by 4 mL of 2% Lidocaine delivered with a 25g needle. A 17g 100 mm radiofrequency introducer needle was placed to the planned anatomic targets guided with intermittent fluoroscopy with a perpendicular approach to terminally place at the junction of the superior articular process and the transverse process of the bilateral L4 L5], the base of the sacral ala on the bilateral for the L5 medial branch nerve and the area between base of the sacral ala to the S1 foramen bilaterally. The stylets were removed and radiofrequency probes with a 4mm active tip were then inserted. Needle tip position of the probes was verified in the AP, oblique, and lateral views. At each site, the medial branch nerve was stimulated at 2 Hz to a maximum 1-2 volts determined to finalize safe needle and electrode placement. The patient was awake and responsive during this portion of the procedure. Each target was anesthetized with 1-2 mL of 2% Lidocaine for anesthesia for lesioning and then each target was lesioned at 80 degrees Celsius for 2 minutes and 30 seconds. Tissue impedences were noted to be between 250 and 500 Ohms. I then injected 1/4 of Depomedrol (40 mg/cc) followed by 1 cc of 0.5% Bupivacaine to each segmental sensory nerve. Electrodes and needles were then removed and bandages placed over the needle placement sites, the patient then returned to the supine position on a stretcher and transported to the recovery room without hemodynamic, neurologic, or allergic reactions. Fluoroscopic images were printed for hard copy recording and digitally archived. POST PROCEDURE EVALUATION: IMPRESSION: 1. Summary of procedure. Medication given is documented in the MAR. 2. The patient will be contacted in 1-3 weeks 3. Estimated Blood Loss: <5 mls 4. Fluoroscopy time: Documented in the EMR. Follow up plans and appointments were discussed with the Donya . Post procedure instruction was given as documented in nursing documentation and having met discharge criteria, Donya was discharged from the Pain Management Center. COMMENTS: No apparent complications. Post-procedure pain: VAS= 1/10. F/U with our office as needed. I personally performed this entire procedure. Casey Womack DO, MPH [facility]-Pain Management [facility]-Center for Pain Management
== END 2022-07-09 07:49 | disposition home or self-care (01) ==
PROVIDERS: PCP Family Medicine; Visit Provider Preventive Medicine Occupational Medicine
DX: M47.817 Spondylosis without myelopathy or radiculopathy, lumbosacral region (principal)
CPT/HCPCS: 64636; 64635; 72100; J1030; J2250; J3010

== ENCOUNTER → 2022-08-10 02:29 | Outpatient (CLI) | payer MEDICARE, BC, SELFPAY ==
--- NOTE | 2022-08-10 07:30 | DI.MAMMO_ITS ---
Exam(s) MAMMO SCREENING EXAM: MAMMO SCREENING CLINICAL HISTORY: screening,z12.39 TECHNIQUE: Mammograms were interpreted according to the usual protocol including computer analysis w [employer] CAD system, tomosynthesis and C-view imaging. COMPARISON: 2011 through 2021 FINDINGS: The breasts are composed of mainly fatty density , Breast Density category A. No suspicious masses or suspicious microcalcifications are seen. No skin thickening or abnormal axillary lymph nodes are seen. There has been no significant change from prior exams. IMPRESSION: BI-RADS Category 1, Negative mammogram Yearly screening mammography is recommended. Breast Density - Category A, fatty density. A negative radiographic report should not delay biopsy if a dominant or clinically suspicious mass is present. Up to ten percent of cancers are not identified on mammography. A negative report may reinforce clinical impression. Adenosis and dense breasts may obscure an underlying neoplasm. False positive reports average 6 to 10%. Patient will receive a letter notifying them of these results.
== END ==
PROVIDERS: PCP Family Medicine; Visit Provider Family Medicine
DX: Z12.31 Encounter for screening mammogram for malignant neoplasm of breast (principal)
CPT/HCPCS: 77063; 77067; 99213; 99214

== ENCOUNTER 2022-08-20 23:45 | Emergency (ER) | payer MEDICARE, BC, SELFPAY ==
[2022-08-20 23:50] VITALS: BP 171/83; PULSE 90; RESP 20; TEMP 36.8; O2SAT 97
--- NOTE | 2022-08-21 | DI.RAD_ITS ---
Exam(s) XR ELBOW LT COMPLETE EXAM: XR ELBOW LT COMPLETE CLINICAL HISTORY: recent cubit niraj. repair, splinted, fall hit elbow. TECHNIQUE: 2D digital imaging was performed of the left elbow. Three images were obtained. AP, lat eral and oblique views were obtained. COMPARISON: No exams were available for comparison FINDINGS: BONES: No acute fracture is present. No bony destructive lesion is seen. JOINTS: The elbow is normally aligned. No joint effusion is seen. SOFT TISSUE: The patient's arm is in a splint which obscures the underlying detail. There are 2 surg ical clips in the soft tissues of the distal upper arm. IMPRESSION: No acute fracture or dislocation. DATA REPOSITORY: RADIATION DOSE DELIVERED:
--- NOTE | 2022-08-21 | DI.CT_ITS ---
Exam(s) CT HEAD CERVICAL SPINE WO EXAM: CT HEAD CERVICAL SPINE WO CLINICAL HISTORY: fell, hit posterior head, no loc, no thinners. TECHNIQUE: Imaging Protocol: Axial computed tomography images with coronal and sagittal reformatted images were created and reviewed COMPARISON: CT CT HEAD WO/W from 01/16/2021 FINDINGS: CT Head: Ventricles and Extra axial spaces: Normal in size and morphology for the patient's age. Hemorrhage: None. Cerebral parenchyma: No acute territorial infarct is identified. There are areas of decreased attenu ation in the white matter most consistent with small vessel ischemic disease. Midline shift: None. Brainstem/Cerebellum: Normal. Calvarium: Normal. Visualized Paranasal sinuses/Mastoids: Clear. Soft Tissues: Unremarkable. CT Cervical Spine: Bones: No acute fracture or subluxation. Mild cervical spondylosis. Soft Tissues: Unremarkable. Lung Apices: Clear. IMPRESSION: 1. No acute intracranial process. 2. No acute fracture or subluxation in the cervical spine. RADIATION DOSE DELIVERED: 1,307.53mGy.cm Total DLP DATA REPOSITORY: All CT scans at this facility are submitted to the National Radiology Data Registry (NRDR) Dose Index Registry (DIR) with the [employer] (ACR). RADIATION OPTIMIZATION: All CT scans at this facility use at least one of these dose optimization te chniques: automated exposure control; mA and/or kV adjustment per patient size (includes targeted exa ms where dose is matched to clinical indication); or iterative reconstruction.
--- NOTE | 2022-08-21 | DI.RAD_ITS ---
Exam(s) XR CHEST 2V PA LATERAL EXAM: XR CHEST 2V PA LATERAL CLINICAL HISTORY: fall, hit back, upper rib pain TECHNIQUE: 2D digital imaging was performed of the chest. Two images were obtained. PA and lateral views were obtained. COMPARISON: CR CHEST 2 VIEWS PA,LAT from 03/01/2017 FINDINGS: MEDIASTINUM: Normal. HEART: Normal. PULMONARY VASCULATURE: Normal. LUNGS: Clear. PLEURAL SPACE: No pleural effusion or pneumothorax. BONE:Within normal limits for the patient's age. OTHER FINDINGS:Normal. IMPRESSION: No acute pulmonary findings. DATA REPOSITORY: RADIATION DOSE DELIVERED:
[2022-08-21] MEDS: Acetaminophen 500 MG TAB 1000 MG PO (00:09)
--- NOTE | 2022-08-21 00:24 | W.ED.GENAD ---
Discharge Plan Disposition Patient Disposition: HOME Condition: Good Discharge Details Clinical Impression: Fall, Contusion of elbow, left Primary Care Provider: Lisa Villalba ED Provider: Senthil Modi Home Meds and New Rx's Prescriptions: No Action cholecalciferol (vitamin D3) [Vitamin D3] 2,000 unit tablet 2,000 unit PO DAILY magnesium oxide 400 mg magnesium capsule 400 mg PO DAILY potassium citrate 10 mEq (1,080 mg) tablet extended release 2,160 mg PO DAILY Label Comments: [facility] Rx Topical Pain Cream ointment See Rx Instructions topical .COMPLEX Label Comments: Works well Rx Instructions: 2-4 pumps daily. Topical Lidocaine 2%, Prilocaine 2%, Gabapentin 3%, Meloxicam 0.1%; [facility] lisinopril 20 mg tablet 20 mg PO DAILY Qty: 90 4RF Rx Instructions: take one tablet daily multivitamin [Daily Multi-Vitamin] 1 EACH tablet 1 ea PO DAILY pregabalin 150 mg capsule 150 mg PO BID Qty: 180 3RF pantoprazole 40 mg tablet,delayed release (DR/EC) 40 mg PO BID Qty: 180 3RF bupropion HCl 300 mg tablet extended release 24 hr 300 mg PO QAM MDD 450mg Qty: 90 3RF Rx Instructions: Take with 150mg tab bupropion HCl 150 mg tablet extended release 24 hr 150 mg PO QAM MDD 450mg Qty: 90 3RF Rx Instructions: Take with 300mg tab pregabalin [Lyrica] 100 mg capsule 100 mg PO QHS Qty: 30 3RF Rx Instructions: Take in addition to 150 mg dose at night for a total of 250 mg at night. calcium carbonate [Calcium 500] 500 mg calcium (1,250 mg) tablet 1,000 mg PO DAILY acetaminophen [Tylenol Arthritis Pain] 650 mg Tablet Extended Release 650 mg PO PRN PRN Discharge Instructions Instructions: Contusion in Adults (ED) Additional Instructions: At this time your x-rays per my review did not show any signs of significant fracture. Your CT scan of your head and neck is negative for evidence of fracture. We will contact you if any significant abnormalities noted on your x-ray images. In the meantime please use Tylenol as needed for pain. Ice the affected left elbow. Follow-up closely with your [facility] specialist tomorrow. If you notice any worsening of your symptoms, or any new symptoms such as vomiting, diarrhea, fever, chills, shortness of breath, chest pain, numbness, weakness, or fainting , please return immediately to the emergency department for reevaluation. Please follow up with your primary care provider as soon as possible for reassessment and reevaluation. As always, it was a pleasure participating in your medical care today. Referrals: Lisa Villalba MD [Primary Care Provider] - Medical Decision Making 72-year-old female presents today after fall. Patient had cubital and carpal tunnel surgery just within the past few days. She does have a cast on her left arm. Today unfortunately she slipped while walking down the stairs hit the back of her head, and her left elbow. She admits to some pain in the back top aspect of her chest. She denies any loss of consciousness. She is on no blood thinners. No other complaints at this time. She does admit to mild irritation in her left elbow, as well as mild pain in the shoulders and the back of her head. Pain is made worse with movement. Improved by nothing. Exam demonstrates no midline spinal tenderness. Mild right-sided occipital head tenderness. No significant neck tenderness. Mild posterior rib pain in the superior ribs bilaterally. No significant pain in the left elbow that is splinted on palpation. Due to the nature of the patient's fall, her risk factors, we will get CT scan of the head and neck, and x-rays of the chest and left elbow. We will give Tylenol 2:30 AM X-ray results of the elbow and chest are negative per virtual radiology. CT scan of the head neck is negative per virtual radiology. Repeat exam demonstrates stable achiness. Sensation intact for the fingers. Mild subjective numbness is present in the third fourth and fifth digit, however good two-point discrimination remains intact. Brisk capillary refill is still present. Patient remains neurovascularly intact. Patient is stable for discharge at this time with no evidence of neurovascular compromise, no fracture or other pathology. Recommend close follow-up with [facility] surgeon tomorrow. Discussed red flags for which to return. I have extensively reviewed the treatment plan and discharge instructions with the patient and their family. I have addressed all patient concerns at this time. The patient and family was made aware of what symptoms to monitor for that would warrant a return to the emergency department. Discussed the plan with the patient and family, they demonstrate verbal understanding and agreement with our assessment and plan at this time. The documentation in this chart was dictated using [employer] dictation software. Please excuse any dictation errors. X-ray findings were reviewed with the patient. FINDINGS: Brain: Normal. No hemorrhage. Unremarkable white matter. No mass effect. Cerebral ventricles: No ventriculomegaly. Paranasal sinuses: Visualized sinuses are unremarkable. No fluid levels. Mastoid air cells: Visualized mastoid air cells are well aerated. Bones/joints: Unremarkable. No acute fracture. Soft tissues: Unremarkable. IMPRESSION: No acute intracranial abnormality FINDINGS: Bones/joints: No acute fracture. Normal alignment. Multilevel degenerative disk disease and facet arthropathy with neuroforaminal and canal stenosis.. Lungs: Lung apices are normal. Soft tissues: Unremarkable. IMPRESSION: No acute findings. Thank you for allowing us to participate in the care of your patient. Dictated and Authenticated by: Jackson Vaaldez MD 08/21/2022 1:42 AM Eastern Time ([place] & Good) FINDINGS: Lungs: Lungs are adequately inflated and symmetric. No focal consolidation or pulmonary edema. Pleural spaces: No pleural effusion. No pneumothorax. Heart/Mediastinum: Cardiomediastinal contours within normal limits. Vasculature: Vascular calcifications of the aortic arch are present. Bones/joints: No acute osseous finding. IMPRESSION: No acute findings. Thank you for allowing us to participate in the care of your patient. Dictated and Authenticated by: Jeffrey Reynoso MD 08/21/2022 2:12 AM Eastern Time ([place] & Good) FINDINGS: Bones/joints: Overlying splinting material obscures fine osseous and soft tissue detail. No suspicious osseous lytic or blastic lesion. No acute fracture or dislocation. No joint effusion. Soft tissues: 2 surgical clips project within the medial soft tissues of the distal left upper arm. Mild dorsal soft tissue edema. IMPRESSION: No acute fracture or dislocation. Thank you for allowing us to participate in the care of your patient. Dictated and Authenticated by: Jeffrey Reynoso MD 08/21/2022 2:11 AM Eastern Time ([place] & Good) HPI General Date/Time Provider Initiated Documentation: 08/21/22 00:03. HPI Narrative: 72-year-old female presents today after fall. Patient had cubital and carpal tunnel surgery just within the past few days. She does have a cast on her left arm. Today unfortunately she slipped while walking down the stairs hit the back of her head, and her left elbow. She admits to some pain in the back top aspect of her chest. She denies any loss of consciousness. She is on no blood thinners. No other complaints at this time. She does admit to mild irritation in her left elbow, as well as mild pain in the shoulders and the back of her head. Pain is made worse with movement. Improved by nothing. Related Data Home Medications Medication Instructions Recorded Confirmed multivitamin (Daily Multi-Vitamin 1 ea PO DAILY 03/02/16 08/20/22 tablet) cholecalciferol (vitamin D3) 50 2,000 unit PO DAILY 08/15/18 08/20/22 mcg (2,000 unit) tablet (Vitamin D3) acetaminophen 650 mg 650 mg PO PRN PRN 10/04/20 08/20/22 tablet,extended release (Tylenol Arthritis Pain) magnesium oxide 400 mg PO DAILY 01/16/21 08/20/22 calcium carbonate 500 mg calcium 1,000 mg PO DAILY 04/08/21 08/20/22 (1,250 mg) tablet (Calcium 500) Topical Pain Cream See Rx Instructions topical 06/30/21 08/20/22 .COMPLEX Leg Pain lisinopril 20 mg tablet 20 mg PO DAILY #90 tab-caps 11/05/21 08/20/22 potassium citrate 10 mEq (1,080 2,160 mg PO DAILY 12/24/21 08/20/22 mg) tablet,extended release pregabalin 150 mg capsule 150 mg PO BID #180 caps 04/20/22 08/20/22 pantoprazole 40 mg tablet,delayed 40 mg PO BID #180 tabs 05/25/22 08/20/22 release bupropion HCl 150 mg 24 hr tablet, 150 mg PO QAM #90 tabs 06/08/22 08/20/22 extended release bupropion HCl 300 mg 24 hr tablet, 300 mg PO QAM #90 tabs 06/08/22 08/20/22 extended release pregabalin 100 mg capsule (Lyrica) 100 mg PO QHS #30 caps 08/03/22 08/20/22 Previous Rx's Medication Instructions Recorded lisinopril 20 mg tablet 20 mg PO DAILY #90 tab-caps 11/05/21 pregabalin 150 mg capsule 150 mg PO BID #180 caps 04/20/22 pantoprazole 40 mg tablet,delayed 40 mg PO BID #180 tabs 05/25/22 release bupropion HCl 150 mg 24 hr tablet, 150 mg PO QAM #90 tabs 06/08/22 extended release bupropion HCl 300 mg 24 hr tablet, 300 mg PO QAM #90 tabs 06/08/22 extended release pregabalin 100 mg capsule (Lyrica) 100 mg PO QHS #30 caps 08/03/22 Allergies Allergy/AdvReac Type Severity Reaction Status Date / Time Penicillins Allergy Unknown HIVES Verified 08/20/22 23:49 tramadol AdvReac Mild [place]/Vomiting; Verified 08/20/22 23:49 headaches hydrocodone AdvReac Unknown H/A Verified 08/20/22 23:49 sertraline AdvReac Headache Verified 08/20/22 23:49 General Stated Complaint: Orthopedic TIFFANIE: 3 Review of Systems All systems reviewed & are unremarkable except as noted in HPI and below PFSH All Active Problems (Updated 08/21/22 @ 02:11 by Senthil Modi DO) Essential hypertension (Chronic) Idiopathic peripheral neuropathy (Chronic) Arthritis of carpometacarpal (CMC) joint of right thumb (Chronic) Arthritis of carpometacarpal (CMC) joint of left thumb (Chronic) Primary osteoarthritis of right knee (Chronic) xray/femoro-patellar OA (imaging + symptoms) ANGELINE (generalized anxiety disorder) (Acute) Sensorineural hearing loss of both ears (Acute) Depression (Chronic) Lumbosacral radiculitis (Acute) Lumbosacral spondylosis without myelopathy (Chronic) improved after radiofrequency ablation Witnessed episode of apnea (Acute) Fall (Acute) Contusion of elbow, left (Acute) Medical History Cubital tunnel syndrome, bilateral upcoming [place] [facility] Esophageal reflux Tucker's esophaguus EGD 05/2014 EGD 08/15/19 Dr. Thapa. Per pt. results came back with no Barretts present Essential tremor Non-alcoholic fatty liver disease seen on abd u/s in 2013. Normal LFTs. 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 Clements Family History Mother Disorder of liver FAILURE Diabetes Alcohol abuse Heart disease Smoker Father Disorder of liver FAILURE Alcohol abuse Heart disease Smoker Sister Diabetes Essential hypertension Neoplasm COLON/LIVER Sister Diabetes Essential hypertension Heart disease cardiomyopathy Sister Diabetes Brother Diabetes Essential hypertension Hyperlipidemia Neoplasm THROAT/LIVER Brother Diabetes Essential hypertension Neoplasm SKIN Daughter Graves disease Social History (Updated 08/11/22 @ 10:08 by Ana Friedman) Smoking/Tobacco Use Status: Former Tobacco Use tobacco type: cigarettes Quit Date: 11/08/01 Pack-years: 20 Tobacco: How many years used: 20 Second Hand Exposure: Yes Smoking risk assessment performed?: Yes Alcohol Intake: current Alcohol Intake frequency: holidays/special occasions only Alcohol type: wine Drug use: Never Substance use type: does not use Caregiver/Support person: Yes Household members: spouse Housing: house Number of Children: 2 Communication Needs: Hard of Hearing Do you need help understanding health information?: Rarely 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; 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 [employer] Pets and animals: No Sexually active: Yes Do you think of yourself as: straight/heterosexual Other: - Panda; celebrating 50 years in 04/2022 What is your relationship status?: How often do you talk on the phone with friends or family?: three or more times per week How often do you get together with friends or relatives?: three or more times per week Panel score (0-1 are the most socially isolated patients): 2 What type of physical activity do you participate in: walking Duration: 45-60 minutes/day Frequency: 3-4 times per week Xi/Confucianism: Adventism Seatbelt use: always Drive intox or ride w/intox racecar driver: No Do you feel safe at home: Yes Do you feel safe in your relationship?: Yes Additional Social history: Enjoys refinishing furniture, making dried flower wreathes. Exam Narrative Exam Narrative: 1.Const: Well-nourished, Well-developed, appearing stated age 2.Eyes: PERRL, no conjunctival injection, and symmetrical lids. 3.ENT: Atraumatic external nose and ears. Moist MM. Neck: Symmetric, trachea midline, No thyromegaly. There is no evidence of raccoon eyes, peters sign, CSF rhinorrhea, mastoid tenderness, cranial crepitus, hemotympanum, exophthalmos, or hyphema. Patient demonstrates intact dentition with no signs of tooth avulsion or fracture, no signs of jaw deformity, no evidence of a LeFort's fracture, with an intact palate, nose and orbital region. There is no evidence of a nasal septal hematoma. No proptosis. Jaw closes symmetrically. Airway is clear. 4.CVS: +S1/S2, No murmurs or gallops. Peripheral pulses 2+ and equal in all extremities. Brisk capillary refill in all extremities. 5.RESP: Unlabored respiratory effort. Clear to auscultation bilaterally. No wheezes rales or rhonchi 6.GI: Soft, Nontender/Nondistended, No hepatosplenomegaly. No guarding or rebound. 7.MSK: Normocephalic/Atraumatic, Extremities w/o deformity or ttp No cyanosis or clubbing, Normal movement of all extremities except for in her left arm which is currently splinted. No significant tenderness over the elbow where she hit. No midline cervical thoracic or lumbar spine tenderness. Mild achiness over her upper posterior chest bilaterally. No other tenderness on the arms or the legs. 8.Skin: Warm, Dry. No rashes or lesions. 9.Neuro: lifter II-XII grossly intact. Sensation grossly intact, no focal neurologic deficits. All 6 cardinal planes of vision are fully intact. No evidence of rotatory or vertical nystagmus. The patient demonstrated a normal [id number], good dexterity. There was no evidence of dysdiadochokinesia. Patient was able to ambulate without difficulty. There was no wide-based gait. Romberg testing was normal. Fhot-io-[id number] testing was normal. Sensation was intact bilaterally as well as muscle strength bilaterally for all extremities. Patient was able to verbalize butter cup with no slurring, or miss pronunciation. 10.Psych: (AAO) x3. Appropriate mood and affect Course Vital Signs Vital signs: Vital Signs Temperature 36.8 C 08/20/22 23:50 Pulse 90 08/20/22 23:50 Respiratory Rate 20 08/20/22 23:50 Blood Pressure 171/83 H 08/20/22 23:50 Pulse Oximetry 97 08/20/22 23:50 Temperature 36.8 C 08/20/22 23:50 Temperature Source Temporal Artery Scan 08/20/22 23:50 Pulse 90 08/20/22 23:50 Respiratory Rate 20 08/20/22 23:50 Respiratory Effort Non-Labored 08/20/22 23:59 Blood Pressure 171/83 H 08/20/22 23:50 Blood Pressure Position Sitting 08/20/22 23:50 Pulse Oximetry 97 08/20/22 23:50 Oxygen Delivery Method Room Air 08/20/22 23:50 Oxygen Flow Rate 0 08/20/22 23:50 Pain Level 10 08/21/22 00:09 Comment 08/20/22 23:50
[2022-08-21] MEDS: Ibuprofen 800 MG TAB PO (01:39)
--- NOTE | 2022-08-21 01:43 | DI.VRAD_ITS ---
PROCEDURE INFORMATION: Exam: CT Head Without Contrast Exam date and time: 08/21/2022 12:28 AM Age: 72 years old Clinical indication: Injury or trauma; Fall; Blunt trauma (contusions or hematomas); Without loss of consciousness; Injury date: 08/20/22; Injury details: Fell, hit posterior head, no loc, no thinners TECHNIQUE: Imaging protocol: Computed tomography of the head without contrast. Radiation optimization: All CT scans at this facility use at least one of these dose optimization techniques: automated exposure control; mA and/or kV adjustment per patient size (includes targeted exams where dose is matched to clinical indication); or iterative reconstruction. COMPARISON: CT HEAD WO/W 01/16/2021 10:59 AM FINDINGS: Brain: Normal. No hemorrhage. Unremarkable white matter. No mass effect. Cerebral ventricles: No ventriculomegaly. Paranasal sinuses: Visualized sinuses are unremarkable. No fluid levels. Mastoid air cells: Visualized mastoid air cells are well aerated. Bones/joints: Unremarkable. No acute fracture. Soft tissues: Unremarkable. IMPRESSION: No acute intracranial abnormality. PROCEDURE INFORMATION: Exam: CT Cervical Spine Without Contrast Exam date and time: 08/21/2022 12:28 AM Age: 72 years old Clinical indication: Injury or trauma; Fall; Blunt trauma (contusions or hematomas); Without loss of consciousness; Injury date: 08/20/22; Injury details: Fell, hit posterior head, no loc, no thinners TECHNIQUE: Imaging protocol: Computed tomography of the cervical spine without contrast. Radiation optimization: All CT scans at this facility use at least one of these dose optimization techniques: automated exposure control; mA and/or kV adjustment per patient size (includes targeted exams where dose is matched to clinical indication); or iterative reconstruction. COMPARISON: CT CHEST W 02/12/2021 3:25 PM FINDINGS: Bones/joints: No acute fracture. Normal alignment. Multilevel degenerative disk disease and facet arthropathy with neuroforaminal and canal stenosis.. Lungs: Lung apices are normal. Soft tissues: Unremarkable. IMPRESSION: No acute findings. Dictated and Authenticated by: Jackson Valadez MD. Ordering:AUBREY Ndiaye MD
--- NOTE | 2022-08-21 02:12 | DI.VRAD_ITS ---
PROCEDURE INFORMATION: Exam: XR Left Elbow Exam date and time: 08/21/2022 12:34 AM Age: 72 years old Clinical indication: Injury or trauma; Other: Recent cubit niraj. Repair, splinted, fall hit elbow; Prior surgery; Surgery date: <1 month TECHNIQUE: Imaging protocol: Radiologic exam of the Left elbow. Views: 3 or more views. COMPARISON: CR XR hand LT complete 11/11/2018 2:28 PM FINDINGS: Bones/joints: Overlying splinting material obscures fine osseous and soft tissue detail. No suspicious osseous lytic or blastic lesion. No acute fracture or dislocation. No joint effusion. Soft tissues: 2 surgical clips project within the medial soft tissues of the distal left upper arm. Mild dorsal soft tissue edema. IMPRESSION: No acute fracture or dislocation. Dictated and Authenticated by: Jeffrey Reynoso MD. Ordering:AUBREY Ndiaye MD
--- NOTE | 2022-08-21 02:13 | DI.VRAD_ITS ---
PROCEDURE INFORMATION: Exam: XR Chest Exam date and time: 08/21/2022 12:31 AM Age: 72 years old Clinical indication: Injury or trauma; Fall; Blunt trauma (contusions or hematomas); Additional info: Fall, hit back, upper rib pain TECHNIQUE: Imaging protocol: Radiologic exam of the chest. Views: 2 views. COMPARISON: CT CHEST W 02/12/2021 3:25 PM FINDINGS: Lungs: Lungs are adequately inflated and symmetric. No focal consolidation or pulmonary edema. Pleural spaces: No pleural effusion. No pneumothorax. Heart/Mediastinum: Cardiomediastinal contours within normal limits. Vasculature: Vascular calcifications of the aortic arch are present. Bones/joints: No acute osseous finding. IMPRESSION: No acute findings. Dictated and Authenticated by: Jeffrey Reynoso MD. Ordering:AUBREY Ndiaye MD
== END 2022-08-21 02:19 | disposition home or self-care (01) ==
PROVIDERS: Emergency Provider Student in an Organized Health Care Education/Training Program; PCP Family Medicine
DX: S50.02XA Contusion of left elbow, initial encounter (principal); W10.9XXA Fall (on) (from) unspecified stairs and steps, initial encounter; Z87.891 Personal history of nicotine dependence; Y93.01 Activity, walking, marching and hiking; R20.2 Paresthesia of skin; G89.11 Acute pain due to trauma; R07.81 Pleurodynia; R51.9 Headache, unspecified
CPT/HCPCS: 99284; 70450; 71046; 72125; 73080; 99282

== ENCOUNTER → 2022-09-18 00:09 | Outpatient (CLI) | payer MEDICARE, BC, SELFPAY ==
--- NOTE | 2022-09-18 15:50 | DI.DEXA_ITS ---
Exam(s) XR DEXA BONE DENSITY W/WO JUAN JOSÉ EXAM: XR DEXA BONE DENSITY W/WO JUAN JOSÉ CLINICAL HISTORY: screening, asymptomatic menopausal state, Z78.0 TECHNIQUE: Routine DEXA evaluation of the lumbar spine, hip, or forearm. COMPARISON: No exams were available for comparison FINDINGS: Performed on a Hologic unit. Lateral image: No compression fracture evident. Lumbar Spine total T-score: -2.1 Hip total T-score:-1.6 Independent reading at the level of the femoral neck yields T-score -1.3. Forearm total T-score: -2.0 IMPRESSION: Bone mineral density measures in the osteopenia range. Fracture risk is moderate. Note: Any spine fracture indicates 5x risk for subsequent spine fracture and 2x risk for subsequent h ip fracture. World Health Organization criteria for BMD interpretation classify patients: Normal...... T- Score at or above -1.0 Osteopenic... T- Score between -1.0 and -2.5 Osteoporosis... T-Score at or below -2.5
== END ==
PROVIDERS: PCP Family Medicine; Visit Provider Family Medicine
DX: Z78.0 Asymptomatic menopausal state (principal); Z13.820 Encounter for screening for osteoporosis; M85.89 Other specified disorders of bone density and structure, multiple sites
CPT/HCPCS: 77080

== ENCOUNTER 2022-12-28 03:16 | Outpatient (CLI) | payer MEDICARE, BC, SELFPAY ==
--- NOTE | 2022-12-30 08:39 | W.PFT ---
Date of service: 12/28/22 Time of Service: 22:59 Pulmonary Function Test Result Indications: Idiopathic sleep related nonobstructive alveolar hypoventilation Note: Overnight Oximetry Amount of time analyzed: 7 hours, 41 minutes Number of minutes under 88%: 175.1min [place]:18.6 Appearance of oxygen saturation pattern: Sharp and sudden decreases and increases in SpO2 consistent with possible obstructive sleep apnea. Recommendation:Recommend polysomnographry or sleep medicine referral if not already completed. Could also repeat the study while on 2LPM nocturnal oxygen. Alison Casey MD Pulmonary & Critical Care Medicine Clinical Correlation therefore is recommended.
== END 2022-12-28 03:17 | disposition home or self-care (01) ==
LOC: RT 03:16
PROVIDERS: PCP Family Medicine; Visit Provider Family Medicine
DX: G47.34 Idiopathic sleep related nonobstructive alveolar hypoventilation (principal)
CPT/HCPCS: 94762

== ENCOUNTER → 2022-12-31 10:54 | Outpatient (BNVA) | payer MEDICARE, BC, SELFPAY | PROVIDERS: PCP Family Medicine; Referring Provider Family Medicine; Visit Provider Nurse Practitioner Adult Health | DX: G60.9 Hereditary and idiopathic neuropathy, unspecified (principal) | CPT/HCPCS: 99213 ==

== ENCOUNTER 2023-01-08 13:54 | Outpatient (CLI) | payer MEDICARE, BC, SELFPAY ==
--- NOTE | 2023-01-08 13:30 | DI.RAD_ITS ---
Exam(s) XR CHEST 2V PA LATERAL EXAM: XR CHEST 2V PA LATERAL CLINICAL HISTORY: WHEEZING R06.02. TECHNIQUE: 2D digital imaging was performed. COMPARISON: CR,XR XR CHEST 2V PA LATERAL from 08/21/2022 FINDINGS: 2 views: Heart size is normal. The mediastinum is not widened. Lungs are clear. No infiltrates nor pleural effusions. IMPRESSION: No acute pulmonary findings. DATA REPOSITORY: RADIATION DOSE DELIVERED:
== END 2023-01-08 14:14 ==
LOC: DI 13:55
PROVIDERS: PCP Family Medicine; Visit Provider Nurse Practitioner Family
DX: R06.2 Wheezing (principal)
CPT/HCPCS: 71046

== ENCOUNTER → 2023-02-09 10:00 | Outpatient (BNVA) | payer MEDICARE, BC, SELFPAY | PROVIDERS: PCP Family Medicine; Visit Provider Nurse Practitioner Adult Health | DX: G60.9 Hereditary and idiopathic neuropathy, unspecified (principal) | CPT/HCPCS: 99213 ==

== ENCOUNTER 2023-02-10 13:08 | Outpatient (CLI) | payer MEDICARE, BC, SELFPAY ==
--- NOTE | 2023-02-10 06:00 | DI.RAD_ITS ---
Exam(s) XR PAIN CLINIC LUMBAR SP 2V EXAM: XR PAIN CLINIC LUMBAR SP 2V CLINICAL HISTORY: Dx: Lumbar Spondylosis. TECHNIQUE: Fluoroscopy was provided for the referring physician for guidance with performing pain cl inic injection procedure. COMPARISON: No exams were available for comparison FINDINGS: Please see procedure note for details. Fluoro time: 61.2 seconds RADIATION DOSE DELIVERED: Kar=10.0 mGy
[2023-02-10 13:20] VITALS: BP 127/73; PULSE 85; RESP 20; TEMP 36.6; O2SAT 93
[2023-02-10] MEDS: fentaNYL 100 MCG/2 ML VIAL IVP (13:54)
[2023-02-10] MEDS: Midazolam 2 MG/2 ML VIAL IVP (13:54)
[2023-02-10] MEDS: Lactated Ringers 500 ML 80 ML IV (13:55)
[2023-02-10 14:26] VITALS: BP 133/61; PULSE 81; RESP 18; O2SAT 94
[2023-02-10] MEDS: Lidocaine 2% Pres-Free 5 ML VIAL IJ (14:30)
[2023-02-10] MEDS: methylPREDNISolone ACETATE 40 MG/ML VIAL IJ (14:30)
[2023-02-10] MEDS: Bupivacaine 0.5% Pres-Free 10 ML VIAL IJ (14:31)
--- NOTE | 2023-02-15 09:34 | PDOC.PAIN_ITS ---
Date of service: 02/10/23 Time of Service: 15:00 Pain Clinic Procedure Note Procedure Note Procedure Note: bilateral Lumbar Radiofrequency with Coolief Machine PROCEDURE NOTE Date of Service: February 10, 2023 Patient: Donya Puri Provider: Casey Womack DO, MPH Pre Operative Diagnosis: Lumbosacral Spondylosis without Myelopathy Post Operative Diagnosis: Same Pre procedure pain VAS= 8/10 Comments: She last had this procedure on 07/09/2022 and had 100% pain relief for >6 months PROCEDURE: Radiofrequency Ablation of medial branches - Bilateral L3 L4 L5 and lateral branches of bilateral S1. Donya Puri was brought into the fluoroscopy suite and positioned into the prone position on the fluoroscopy table and allowed to adjust to a position of comfort. A grounding pad was placed on the left abdomen. The lumbar region was widely prepped with a chloraprep solution, allowed to air dry and draped in standard sterile surgical fashion. Local anesthesia was provided by 4 mL of 2 % Lidocaine delivered with a 25g needle. A 17g 100 mm radiofrequency introducer needle was placed to the planned anatomic targets guided with intermittent fluoroscopy with a perpendicular approach to terminally place at the junction of the superior articular process and the transverse process of the bilateral L4 L5, the base of the sacral ala on the bilateral for the L5 medial branch nerve and the area between base of the sacral ala to the S1 foramen bilaterally. The stylets were removed and radiofrequency probes with a 4mm active tip were then inserted. Needle tip position of the probes was verified in the AP, oblique, and lateral views. At each site, the medial branch nerve was stimulated at 2 Hz to a maximum 1-2 volts determined to finalize safe needle and electrode placement. The patient was awake and responsive during this portion of the procedure. Each target was anesthetized with 1-2 mL of 2 % Lidocaine for anesthesia for lesioning and then each target was lesioned at 80 degrees Celsius for 2 minutes and 30 seconds. Tissue impedences were noted to be between 250 and 500 Ohms. I injected 1/4 cc of Depomedrol (40 mg/cc) followed by 1 cc of 0.5% Bupivacaine at every segmental sensory nerve I ablated. Electrodes and needles were then removed and bandages placed over the needle placement sites, the patient then returned to the supine position on a stretcher and transported to the recovery room without hemodynamic, neurologic, or allergic reactions. Fluoroscopic images were printed for hard copy recording and digitally archived. POST PROCEDURE EVALUATION: IMPRESSION: 1. Summary of procedure. Medication given is documented in the MAR. 2. The patient will be contacted in 1-3 weeks 3. Estimated Blood Loss: <5 mls 4. Fluoroscopy time: Documented in the EMR. Follow up plans and appointments were discussed with the Donya . Post procedure instruction was given as documented in nursing documentation and having met discharge criteria, Donya was discharged from the [facility]. COMMENTS: No apparent complications. Post-procedure pain: VAS= 2/10. F/U with our office as needed. I personally performed this entire procedure. Casey Womack DO, MPH ABPMR-Pain Management [facility]
== END 2023-02-10 13:09 | disposition home or self-care (01) ==
LOC: PC 13:08
PROVIDERS: PCP Family Medicine; Visit Provider Preventive Medicine Occupational Medicine
DX: M47.817 Spondylosis without myelopathy or radiculopathy, lumbosacral region (principal); M54.50 Low back pain, unspecified
CPT/HCPCS: 64635; 64636; 72100; J1030; J2250; J3010

== ENCOUNTER 2023-02-18 02:05 | Outpatient (CLI) | payer MEDICARE, BC, SELFPAY ==
[2023-02-18 16:47] LABS: Anion Gap 8.3 mmol/L (3-11); BUN 21 mg/dL (7-18); CO2 24.7 mmol/L (21.0-32.0); Calcium 8.9 mg/dL (8.5-10.1); Chloride 101 mmol/L (98-107); Estimated GFR 60.61 (mL/min/1.73m2); Glucose 97 mg/dL (74-106); Potassium 4.3 mmol/L (3.5-5.1); Sodium 134 mmol/L (136-145)
== END 2023-02-18 02:06 | disposition home or self-care (01) ==
LOC: LBO 02:05
PROVIDERS: PCP Family Medicine; Visit Provider Family Medicine
DX: I10 Essential (primary) hypertension (principal)
CPT/HCPCS: 36415; 80048

== ENCOUNTER → 2023-06-15 10:30 | Outpatient (BNVA) | payer MEDICARE, BC, SELFPAY | PROVIDERS: PCP Family Medicine; Referring Provider Family Medicine; Visit Provider Nurse Practitioner Adult Health | DX: G60.9 Hereditary and idiopathic neuropathy, unspecified (principal); M54.17 Radiculopathy, lumbosacral region; I10 Essential (primary) hypertension | CPT/HCPCS: 99213 ==

== ENCOUNTER → 2023-08-18 13:29 | Outpatient (BNVA) | payer MEDICARE, BC, SELFPAY | PROVIDERS: PCP Family Medicine; Referring Provider Family Medicine; Visit Provider Nurse Practitioner Adult Health | DX: G60.9 Hereditary and idiopathic neuropathy, unspecified (principal); R73.03 Prediabetes | CPT/HCPCS: 99213 ==

== ENCOUNTER 2023-09-01 12:53 | Outpatient (CLI) | payer MEDICARE, BC, SELFPAY ==
[2023-09-01 13:14] VITALS: BP 160/75; PULSE 87; RESP 20; TEMP 36.6; O2SAT 94
[2023-09-01] MEDS: fentaNYL 100 MCG/2 ML VIAL IVP ×2 (13:45→13:49)
[2023-09-01] MEDS: Lactated Ringers 500 ML 80 ML IV (13:45)
[2023-09-01] MEDS: Midazolam 2 MG/2 ML VIAL IVP (13:45)
[2023-09-01 14:21] VITALS: BP 147/66; PULSE 85; RESP 20; O2SAT 97
--- NOTE | 2023-09-01 14:24 | PDOC.PAIN_ITS ---
Date of service: 09/01/23 Time of Service: 14:24 Pain Managment Procedure Note Procedure Note Procedure Note: PROCEDURE NOTE BILATERAL LUMBAR RADIOFREQUENCY ABLATION Date of Service: September 01, 2023 Patient:? Donya Puri? Provider:? Casey Womack DO, MPH Donya Puri has been referred to the [facility] for Bilateral Lumbar Radiofrequency Ablation with the Giveit100 Machine.? Pre Operative Diagnosis: Lumbosacral Spondylosis without Myelopathy Post Operative Diagnosis: Same Pre procedure pain; VAS= 6/10 Comments: She last had this procedure on 02/09/2023 and had 6 months of >50% pain improvement. Her pain has returned. No new symptoms. She had her COVID vaccination yesterday and thus no steroid will be used after the procedure. PROCEDURE: Radiofrequency Ablation of medial branches - bilateral L3, L4, L5 and lateral branches of bilateral S1. Donya?was interviewed and the medical record was reviewed.? There were no medical, pharmacologic, radiographic or other structural contraindications to attempting fluoroscopically guided BILATERAL Lumbar Radiofrequency Ablation.?Risks and expected side effects as well as potential benefit of the procedure were reviewed with Donya, and the patient's voiced concerns were addressed.? The printed consent form was signed.? Standard time-out procedure was performed. Donya was brought into the fluoroscopy suite and positioned into the prone position on the fluoroscopy table and allowed to adjust to a position of comfort. A grounding pad was placed on the left abdomen. The sterile field was prepared using chlorhexidine preparation of the skin and sterile draping. Local anesthesia superficial and deep was provided by local infiltration of 2% lidoca ine. A 17g 100 mm radiofrequency introducer needle was placed to the planned anatomic targets guided with intermittent fluoroscopy with a perpendicular approach to terminally place at the junction of the superior articular process and the transverse process of the bilateral L4, L5, the base of the sacral ala on the bilateral for the L5 medial branch nerve and the area between base of the sacral ala to the S1 foramen bilaterally. The stylets were removed and radiofrequency probes with a 4mm active tip were then inserted. Needle tip position of the probes was verified in the AP, oblique, and lateral views. At each site, the medial branch nerve was stimulated at 2 Hz to a maximum 1-2 volts determined to finalize safe needle and electrode placement. The patient was awake and responsive during this portion of the procedure. Each target was anesthetized with 1-2 mL of 2 % Lidocaine for anesthesia for lesioning and then each target was lesioned at 80 degrees Celsius for 2 minutes and 30 seconds. Tissue impedances were noted to be between 250 and 500 Ohms. I injected 1 cc of 0.5% Bupivacaine at each segmental sensory nerve after each ablation. There was no unusual discomfort expressed by Donya. The needles were withdrawn without difficulty and bandages placed over the needle placement sites, the patient was observed and was without hemodynamic, neurologic, or allergic reactions. Fluoroscopic images were digitally archived. POST PROCEDURE EVALUATION: IMPRESSION: 1. Summary of procedure. Medication given is documented in the MAR. 2. Follow up plan: Donya to contact [facility] as needed.?This procedure may be repeated if the patient achieves at least 50% improvement in pain/function for at least 6 months. 3. Estimated Blood Loss: <5 mls 4. Fluoroscopy time: Documented in the EMR. Follow up plans and appointments were discussed with the Donya. Post procedure instruction was given as documented in nursing documentation and having met discharge criteria, Donya was discharged from the [facility]. COMMENTS: No apparent complications. Post-procedure pain: VAS= 5/10. I personally completed the entire procedure. CASEY WOMACK DO, MPH ABPM&R - Subspecialty board certification in Pain Medicine [facility]
[2023-09-01] MEDS: Lidocaine 2% Pres-Free 5 ML VIAL IJ (14:42)
[2023-09-01] MEDS: Bupivacaine 0.5% Pres-Free 10 ML VIAL IJ (14:42)
--- NOTE | 2023-09-01 18:00 | DI.RAD_ITS ---
Exam(s) XR PAIN CLINIC LUMBAR SP 2V EXAM: XR PAIN CLINIC LUMBAR SP 2V CLINICAL HISTORY: Dx: Lumbar Spondylosis. TECHNIQUE: Fluoroscopy was provided for the referring physician for guidance with performing pain cl inic injection procedure. COMPARISON: No exams were available for comparison FINDINGS: Please see procedure note for details. Fluoro time: 71.4 seconds RADIATION DOSE DELIVERED: Inesr=13.25 mGy
== END 2023-09-01 12:54 | disposition home or self-care (01) ==
LOC: PC 12:53
PROVIDERS: PCP Family Medicine; Visit Provider Preventive Medicine Occupational Medicine
DX: M54.50 Low back pain, unspecified (principal); M47.817 Spondylosis without myelopathy or radiculopathy, lumbosacral region
CPT/HCPCS: 00123; 64635; 64636; 72100; J2250; J3010

== ENCOUNTER → 2023-09-03 00:18 | Outpatient (CLI) | payer MEDICARE, BC, SELFPAY ==
--- NOTE | 2023-09-03 06:45 | DI.MAMMO_ITS ---
Exam(s) MAMMO SCREENING EXAM: MAMMO SCREENING CLINICAL HISTORY: screening,Z12.39 TECHNIQUE: Mammograms were interpreted according to the usual protocol including computer analysis w [employer] CAD system, tomosynthesis and C-view imaging. COMPARISON: 2013 through 2021 FINDINGS: The breasts are composed of mainly fatty density , Breast Density category A. No suspicious masses or suspicious microcalcifications are seen. No skin thickening or abnormal axillary lymph nodes are seen. There has been no significant change from prior exams. IMPRESSION: BI-RADS Category 1, Negative mammogram Yearly screening mammography is recommended. Breast Density - Category A, fatty density. A negative radiographic report should not delay biopsy if a dominant or clinically suspicious mass is present. Up to ten percent of cancers are not identified on mammography. A negative report may reinforce clinical impression. Adenosis and dense breasts may obscure an underlying neoplasm. False positive reports average 6 to 10%. Patient will receive a letter notifying them of these results.
== END ==
PROVIDERS: PCP Family Medicine; Visit Provider Family Medicine
DX: Z12.31 Encounter for screening mammogram for malignant neoplasm of breast (principal); R92.313 Mammographic fatty tissue density, bilateral breasts
CPT/HCPCS: 77063; 77067

== ENCOUNTER 2023-12-03 01:42 | Outpatient (CLI) | payer MEDICARE, BC, SELFPAY ==
[2023-12-03 12:36] LABS: Anion Gap 9.8 mmol/L (3-11); BUN 18 mg/dL (7-18); CO2 26.2 mmol/L (21.0-32.0); CREATININE 1.1 mg/dL (0.55-1.02); Calcium 9.1 mg/dL (8.5-10.1); Chloride 99 mmol/L (98-107); Estimated GFR 53.72 (mL/min/1.73m2); Glucose 107 mg/dL (74-106); Potassium 4.5 mmol/L (3.5-5.1); Sodium 135 mmol/L (136-145)
== END 2023-12-03 01:43 | disposition home or self-care (01) ==
LOC: LOS 01:43
PROVIDERS: PCP Family Medicine; Visit Provider Family Medicine
DX: E87.1 Hypo-osmolality and hyponatremia (principal)
CPT/HCPCS: 36415; 80048

== ENCOUNTER 2024-07-26 16:46 | Emergency (ER) | payer MEDICARE, BC, SELFPAY ==
[2024-07-26 16:47] VITALS: BP 165/88; PULSE 119; RESP 16; TEMP 37.1; O2SAT 98
--- NOTE | 2024-07-26 18:10 | W.ED.GENAD ---
Discharge Plan Disposition Patient Disposition: Home Condition: Stable Discharge Details Clinical Impression: Laceration of left index finger Primary Care Provider: Lisa Villalba ED Provider: Sakina Garcia Home Meds and New Rx's Prescriptions: New clindamycin HCl 150 mg capsule 450 mg PO TID 7 Days Qty: 63 0RF No Action cholecalciferol (vitamin D3) [Vitamin D3] 2,000 unit tablet 2,000 unit PO DAILY magnesium oxide 400 mg magnesium capsule 400 mg PO DAILY loratadine [Allergy Relief (loratadine)] 10 mg tablet 10 mg PO DAILY PRN (Reason: allergic symptoms) Topical Pain Cream ointment See Rx Instructions topical .COMPLEX Patient Comments: Works well Rx Instructions: 2-4 pumps daily. Topical Lidocaine 2%, Prilocaine 2%, Gabapentin 3%, Meloxicam 0.1%; [facility] famotidine 20 mg tablet 20 mg PO QHS PRN Patient Comments: Takes PRN, sometimes with dinner. Takes Beeno as well. multivitamin [Daily Multi-Vitamin] 1 EACH tablet 1 ea PO DAILY lisinopril 30 mg tablet 30 mg PO DAILY Qty: 90 4RF Rx Instructions: take one tablet daily bupropion HCl 150 mg tablet extended release 24 hr 150 mg PO QAM Qty: 90 3RF pantoprazole 40 mg tablet,delayed release (DR/EC) 40 mg PO BID Qty: 180 3RF calcium carbonate [Calcium 500] 500 mg calcium (1,250 mg) tablet 1,000 mg PO DAILY acetaminophen [Tylenol Arthritis Pain] 650 mg Tablet Extended Release 650 mg PO PRN PRN Discharge Instructions Instructions: Laceration Repair With Stitches ED, Wound Care ED Additional Instructions: Laceration was repaired with 6 simple interrupted sutures. Please keep in the splint for at least the next 3 to 5 days to prevent popping of the sutures. No soaking. After 12 to 24 hours you may wash under running soap and water. Allow to air dry at least 2 hours a day. Take the antibiotic 3 times daily for the next 7 days with yogurt or probiotic to prevent infection. Have the sutures removed in 7 to 10 days. Please be seen sooner for any signs of infection including increased redness, red streaks, drainage fever or swelling. You may return here to have the sutures removed or urgent care or your PCP at your convenience. Referrals: Lisa Villalba MD [Primary Care Provider] - 1 week HPI General Mode of arrival: ambulatory. Date/Time Provider Initiated Documentation: 07/26/24 17:31. Limitations to Documentation: no limitations. Information obtained by: patient, RN notes reviewed and old records reviewed. HPI Narrative: Patient was gardening earlier prior to arrival and had a sickle and accidentally cut the dorsal aspect of her left index finger. Near the base. She does have approximately 1 cm laceration with a flap noted. She does have full range of motion and distal CMS intact. She was given a Tdap booster upon arrival last tetanus was in 2018. No other complaints or associated symptoms. She does have a past medical history of arthritis SIADH, prediabetes fatty liver disease. No blood thinners on a regular basis. Related Data Home Medications ?Medication ?Instructions ?Recorded ?Confirmed multivitamin (Daily Multi-Vitamin 1 ea PO DAILY 03/02/16 02/18/24 tablet) cholecalciferol (vitamin D3) 50 2,000 unit PO DAILY 08/15/18 02/18/24 mcg (2,000 unit) tablet (Vitamin D3) acetaminophen 650 mg 650 mg PO PRN PRN 10/04/20 02/18/24 tablet,extended release (Tylenol Arthritis Pain) magnesium oxide 400 mg PO DAILY 01/16/21 02/18/24 calcium carbonate (Calcium 500) 1,000 mg PO DAILY 04/08/21 02/18/24 Topical Pain Cream See Rx Instructions topical 06/30/21 02/18/24 .COMPLEX Leg Pain loratadine 10 mg tablet (Allergy 10 mg PO DAILY PRN allergic 08/11/23 02/18/24 Relief (loratadine)) symptoms lisinopril 30 mg tablet 30 mg PO DAILY #90 tabs 09/13/23 02/18/24 famotidine 20 mg tablet 20 mg PO QHS PRN 12/01/23 02/18/24 bupropion HCl 150 mg 24 hr tablet, 150 mg PO QAM #90 tabs 01/07/24 02/18/24 extended release pantoprazole 40 mg tablet,delayed 40 mg PO BID #180 tabs 07/17/24 release clindamycin HCl 150 mg capsule 450 mg (3 x 150 mg) PO TID 7 days 07/26/24 #63 caps Previous Rx's ?Medication ?Instructions ?Recorded lisinopril 30 mg tablet 30 mg PO DAILY #90 tabs 09/13/23 bupropion HCl 150 mg 24 hr tablet, 150 mg PO QAM #90 tabs 01/07/24 extended release pantoprazole 40 mg tablet,delayed 40 mg PO BID #180 tabs 07/17/24 release clindamycin HCl 150 mg capsule 450 mg (3 x 150 mg) PO TID 7 days 07/26/24 #63 caps Allergies Allergy/AdvReac Type Severity Reaction Status Date / Time Penicillins Allergy Unknown HIVES Verified 07/26/24 16:52 escitalopram AdvReac Intermediate Other (See Verified 07/26/24 16:52 Comment) tramadol AdvReac Mild [place]/Vomiting; Verified 07/26/24 16:52 headaches hydrocodone AdvReac Unknown H/A Verified 07/26/24 16:52 sertraline AdvReac Headache Verified 07/26/24 16:52 General Stated Complaint: Laceration TIFFANIE: 4 Review of Systems Integumentary/Breasts Skin/Breast: Reports as per HPI and Reports wounds (Approximately 1.5 cm laceration noted to the dorsum of her left left index ) Exam Extrem Hand/finger images: 1. Approximately 1 cm irregular laceration bleeding controlled with a dressing. 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 Near the base. She does have approximately 1 cm laceration with a flap noted. She does have full range of motion and distal CMS intact. She was given a Tdap booster upon arrival last tetanus was in 2018. No other complaints or associated symptoms. She does have a past medical history of arthritis SIADH, prediabetes fatty liver disease. No blood thinners on a regular basis. Laceration cleaned with chlorhexidine scrub, and saline, anesthetized with 1% lidocaine, wound well-approximated with 6 simple interrupted 5.0 Ethilon sutures. Patient tolerated well anesthesia achieved. Will place in a aluminum frog splint and nonadherent dressing. Will place patient on clindamycin due to the laceration being over the joint. Patient was given the first dose here. Patient remove sutures in 7 to 10 days. This text was generated using [employer] dictation system, please disregard any oddities of phrase or misspellings. Quality:SDOH Health Related Social Needs: No Data to Display PFSH All Active Problems (Updated 07/26/24 @ 18:52 by Sakina Garcia NP) Laceration of left index finger (Acute) Allergic rhinitis (Acute) Dyssynergic defecation (Chronic) BUSINESS APPLICATIONS ANALY[place] [facility] [place]read GERD without esophagitis (Acute) Lumbosacral spondylosis without myelopathy (Chronic) improved after radiofrequency ablation Lumbosacral radiculitis (Acute) Depression (Chronic) Sensorineural hearing loss of both ears (Acute) ANGELINE (generalized anxiety disorder) (Acute) Primary osteoarthritis of right knee (Chronic) xray/femoro-patellar OA (imaging + symptoms) Arthritis of carpometacarpal (CMC) joint of left thumb (Chronic) Arthritis of carpometacarpal (CMC) joint of right thumb (Chronic) Idiopathic peripheral neuropathy (Chronic) Essential hypertension (Chronic) Medical History Hydrocystoma left eyelid - removed 2022 Nocturnal hypoxemia used home O2 - felt to be secondary to medication interactions. 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 Thapa. Per pt. results came back with no Barretts present Non-alcoholic fatty liver disease seen on abd u/s in 2013. Normal LFTs. Surgical History Calcium oxalate calculus of kidney (~09/2020) s/p stent, managed by urology at [facility] S/P colonoscopy Cubital tunnel syndrome on right s/p decompression and anterior subcutaneous transposition (01/09/20) s/p decompression and carpal tunnel 12/2021 Trigger finger, right middle finger s/p release 01/09/20 Trochanteric bursitis of right hip Steroid injection: 12/07/18 Tx c bursa debridement and IT band lengthening DOS: 02/21/19 Dr. Clements Family History Mother Disorder of liver FAILURE Diabetes Alcohol abuse Heart disease Smoker Father Disorder of liver FAILURE Alcohol abuse Heart disease Smoker Sister Diabetes Essential hypertension Neoplasm COLON/LIVER Sister Diabetes Essential hypertension Heart disease cardiomyopathy Sister Diabetes Brother Diabetes Essential hypertension Hyperlipidemia Neoplasm THROAT/LIVER Brother Diabetes Essential hypertension Neoplasm SKIN Daughter Graves disease Social History Smoking/Tobacco Use Status: Former Tobacco Use tobacco type: cigarettes Quit Date: 11/08/01 Pack-years: 20 Tobacco: How many years used: 20 Second Hand Exposure: Yes Smoking risk assessment performed?: Yes Alcohol Intake: current Alcohol Intake frequency: holidays/special occasions only Alcohol type: wine Drug use: Never Substance use type: does not use Caregiver/Support person: Yes Household members: spouse Housing: house Number of Children: 2 Communication Needs: Hard of Hearing Do you need help understanding health information?: Rarely 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; 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 [employer] Pets and animals: No Sexually active: Yes Do you think of yourself as: straight/heterosexual Current gender identity: female Other: - Panda; celebrating 52 years in 04/2022 What is your relationship status?: How often do you talk on the phone with friends or family?: three or more times per week How often do you get together with friends or relatives?: three or more times per week Panel score (0-1 are the most socially isolated patients): 2 What type of physical activity do you participate in: walking Duration: 45-60 minutes/day Frequency: 3-4 times per week Xi/Religious: Alevism Seatbelt use: always Drive intox or ride w/intox taxi cab driver: No Do you feel safe at home: Yes Do you feel safe in your relationship?: Yes Additional Social history: Enjoys refinishing furniture, making dried flower wreathes.
[2024-07-26] MEDS: Clindamycin 150 MG CAP 450 MG PO (19:00)
[2024-07-26] MEDS: Clindamycin 150 MG CAP, 12 CAPS/BTL 450 MG PO (19:00)
[2024-07-26 19:18] VITALS: BP 167/86; PULSE 100; RESP 18; TEMP 37.2; O2SAT 98
== END 2024-07-26 19:21 | disposition home or self-care (01) ==
PROVIDERS: Emergency Provider Registered Nurse Emergency; PCP Family Medicine
DX: S61.211A Laceration without foreign body of left index finger without damage to nail, initial encounter (principal); I10 Essential (primary) hypertension; Z23 Encounter for immunization; Z87.891 Personal history of nicotine dependence; W26.8XXA Contact with other sharp object(s), not elsewhere classified, initial encounter; Y93.H2 Activity, gardening and landscaping; Y92.017 Garden or yard in single-family (private) house as the place of occurrence of the external cause
CPT/HCPCS: 12001; 90471; 90715; 99283

== ENCOUNTER 2024-08-07 15:52 | Emergency (ER) | payer MEDICARE, BC, SELFPAY ==
[2024-08-07 15:54] VITALS: BP 181/82; PULSE 112; RESP 16; TEMP 36.1
--- NOTE | 2024-08-07 16:05 | ED.GENADUL_ITS ---
Discharge Plan Disposition Patient Disposition: Home Condition: Stable Discharge Details Clinical Impression: Visit for suture removal Primary Care Provider: Lisa Villalba ED Provider: Jackson Quigley Home Meds and New Rx's Prescriptions: Continued cholecalciferol (vitamin D3) [Vitamin D3] 2,000 unit tablet 2,000 unit PO DAILY magnesium oxide 400 mg magnesium capsule 400 mg PO DAILY loratadine [Allergy Relief (loratadine)] 10 mg tablet 10 mg PO DAILY PRN (Reason: allergic symptoms) Topical Pain Cream ointment See Rx Instructions topical .COMPLEX Patient Comments: Works well Rx Instructions: 2-4 pumps daily. Topical Lidocaine 2%, Prilocaine 2%, Gabapentin 3%, Meloxicam 0.1%; [facility] famotidine 20 mg tablet 20 mg PO QHS PRN Patient Comments: Takes PRN, sometimes with dinner. Takes Beeno as well. multivitamin [Daily Multi-Vitamin] 1 EACH tablet 1 ea PO DAILY lisinopril 30 mg tablet 30 mg PO DAILY Qty: 90 4RF Rx Instructions: take one tablet daily bupropion HCl 150 mg tablet extended release 24 hr 150 mg PO QAM Qty: 90 3RF pantoprazole 40 mg tablet,delayed release (DR/EC) 40 mg PO BID Qty: 180 3RF calcium carbonate [Calcium 500] 500 mg calcium (1,250 mg) tablet 1,000 mg PO DAILY acetaminophen [Tylenol Arthritis Pain] 650 mg Tablet Extended Release 650 mg PO PRN PRN Discharge Instructions Additional Instructions: The wound should heal well at this point. If you have signs of redness or severe pain return to the emergency department for reevaluation HPI General Mode of arrival: ambulatory . Date/Time Provider Initiated Documentation: 08/07/24 15:54 . Limitations to Documentation: no limitations . Information obtained by: patient . History of Present Illness 74 year old F presents to the emergency department with the chief complaint of suture removal, described as mild, Quality is described as aching, and is localized to the left and upper extremity. Patient reports no radiation. Patient started experiencing this day(s) (12) No relieving factors improve symptom(s), No exacerbating factors reported . Patient notes no other symptoms.. Related Data Home Medications ?Medication ?Instructions ?Recorded ?Confirmed multivitamin (Daily Multi-Vitamin 1 ea PO DAILY 03/02/16 02/18/24 tablet) cholecalciferol (vitamin D3) 50 2,000 unit PO DAILY 08/15/18 02/18/24 mcg (2,000 unit) tablet (Vitamin D3) acetaminophen 650 mg 650 mg PO PRN PRN 10/04/20 02/18/24 tablet,extended release (Tylenol Arthritis Pain) magnesium oxide 400 mg PO DAILY 01/16/21 02/18/24 calcium carbonate (Calcium 500) 1,000 mg PO DAILY 04/08/21 02/18/24 Topical Pain Cream See Rx Instructions topical 06/30/21 02/18/24 .COMPLEX Leg Pain loratadine 10 mg tablet (Allergy 10 mg PO DAILY PRN allergic 08/11/23 02/18/24 Relief (loratadine)) symptoms lisinopril 30 mg tablet 30 mg PO DAILY #90 tabs 09/13/23 02/18/24 famotidine 20 mg tablet 20 mg PO QHS PRN 12/01/23 02/18/24 bupropion HCl 150 mg 24 hr tablet, 150 mg PO QAM #90 tabs 01/07/24 02/18/24 extended release pantoprazole 40 mg tablet,delayed 40 mg PO BID #180 tabs 07/17/24 release Previous Rx's ?Medication ?Instructions ?Recorded lisinopril 30 mg tablet 30 mg PO DAILY #90 tabs 09/13/23 bupropion HCl 150 mg 24 hr tablet, 150 mg PO QAM #90 tabs 01/07/24 extended release pantoprazole 40 mg tablet,delayed 40 mg PO BID #180 tabs 07/17/24 release Allergies Allergy/AdvReac Type Severity Reaction Status Date / Time Penicillins Allergy Unknown HIVES Verified 07/26/24 16:52 escitalopram AdvReac Intermediate Other (See Verified 07/26/24 16:52 Comment) tramadol AdvReac Mild [place]/Vomiting; Verified 07/26/24 16:52 headaches hydrocodone AdvReac Unknown H/A Verified 07/26/24 16:52 sertraline AdvReac Headache Verified 07/26/24 16:52 General Stated Complaint: SutureRem TIFFANIE: 5 Review of Systems All systems reviewed & are unremarkable except as noted in HPI and below Constitutional Constitutional: Denies chills and Denies fever(s) Cardiovascular Cardiovascular: Denies chest pain and Denies dyspnea Respiratory Respiratory: Denies cough and Denies dyspnea Gastrointestinal Gastrointestinal: Denies abdominal pain and Denies vomiting Integumentary/Breasts Skin/Breast: Denies rash Exam Const General: no acute distress Orientation: alert [facility] Head: normal to inspection Ears: external ears normal General nose exam: external nose normal Mouth: moist mucous membranes Eyes General: appearance normal, both eyes and all related structures Neck Neck: normal visual inspection Resp Effort & Inspection: normal respiratory effort and able to speak in complete sentences Cardio Rate: regular rate Skin General skin exam: no rashes or lesions noted Neuro General: patient alert and patient oriented x3 Extrem General: full ROM and capillary refill normal Psych Mental Status: mental status grossly normal Course Vital Signs Vital signs: Vital Signs Temperature 36.1 C L 08/07/24 15:54 Pulse 112 H 08/07/24 15:54 Respiratory Rate 16 08/07/24 15:54 Blood Pressure 181/82 H 08/07/24 15:54 Temperature 36.1 C L 08/07/24 15:54 Temperature Source Tympanic 08/07/24 15:54 Pulse 112 H 08/07/24 15:54 Respiratory Rate 16 08/07/24 15:54 Blood Pressure 181/82 H 08/07/24 15:54 Blood Pressure Position Sitting 08/07/24 15:54 Oxygen Delivery Method Room Air 08/07/24 15:54 Oxygen Flow Rate 0 08/07/24 15:54 Pain Level 0 08/07/24 15:54 Medical Decision Making 74-year-old female comes in with request for suture removal. She had 6 sutures placed on her left index finger after cutting it on the 18th. She denies any pain or redness and states it feels better. The wound is well-healed, there is no erythema or drainage on the wound. The wound does seem adequate enough to have the sutures removed. Nursing will remove. She will follow-up with her PCP as needed Quality:SDOH Health Related Social Needs: No Data to Display PFSH All Active Problems (Updated 08/07/24 @ 16:09 by Jackson Quigley MD) Visit for suture removal (Acute) Laceration of left index finger (Acute) Allergic rhinitis (Acute) Dyssynergic defecation (Chronic) [place] [facility] [place] GERD without esophagitis (Acute) Lumbosacral spondylosis without myelopathy (Chronic) improved after radiofrequency ablation Lumbosacral radiculitis (Acute) Depression (Chronic) Sensorineural hearing loss of both ears (Acute) ANGELINE (generalized anxiety disorder) (Acute) Primary osteoarthritis of right knee (Chronic) xray/femoro-patellar OA (imaging + symptoms) Arthritis of carpometacarpal (CMC) joint of left thumb (Chronic) Arthritis of carpometacarpal (CMC) joint of right thumb (Chronic) Idiopathic peripheral neuropathy (Chronic) Essential hypertension (Chronic) Medical History Hydrocystoma left eyelid - removed 2022 Nocturnal hypoxemia used home O2 - felt to be secondary to medication interactions. 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 Thapa. Per pt. results came back with no Barretts present Non-alcoholic fatty liver disease seen on abd u/s in 2013. Normal LFTs. Surgical History Calcium oxalate calculus of kidney (~09/2020) s/p stent, managed by urology at [facility] S/P colonoscopy Cubital tunnel syndrome on right s/p decompression and anterior subcutaneous transposition (01/09/20) s/p decompression and carpal tunnel 12/2021 Trigger finger, right middle finger s/p release 01/09/20 Trochanteric bursitis of right hip Steroid injection: 12/07/18 Tx c bursa debridement and IT band lengthening DOS: 02/21/19 Dr. Clements Family History Mother Disorder of liver FAILURE Diabetes Alcohol abuse Heart disease Smoker Father Disorder of liver FAILURE Alcohol abuse Heart disease Smoker Sister Diabetes Essential hypertension Neoplasm COLON/LIVER Sister Diabetes Essential hypertension Heart disease cardiomyopathy Sister Diabetes Brother Diabetes Essential hypertension Hyperlipidemia Neoplasm THROAT/LIVER Brother Diabetes Essential hypertension Neoplasm SKIN Daughter Graves disease Social History Smoking/Tobacco Use Status: Former Tobacco Use tobacco type: cigarettes Quit Date: 11/08/01 Pack-years: 20 Tobacco: How many years used: 20 Second Hand Exposure: Yes Smoking risk assessment performed?: Yes Alcohol Intake: current Alcohol Intake frequency: holidays/special occasions only Alcohol type: wine Drug use: Never Substance use type: does not use Caregiver/Support person: Yes Household members: spouse Housing: house Number of Children: 2 Communication Needs: Hard of Hearing Do you need help understanding health information?: Rarely 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; 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 [employer] Pets and animals: No Sexually active: Yes Do you think of yourself as: straight/heterosexual Current gender identity: female Other: - Panda; celebrating 50 years in 04/2022 What is your relationship status?: How often do you talk on the phone with friends or family?: three or more times per week How often do you get together with friends or relatives?: three or more times per week Panel score (0-1 are the most socially isolated patients): 2 What type of physical activity do you participate in: walking Duration: 45-60 minutes/day Frequency: 3-4 times per week Xi/Moravian: Muslim Seatbelt use: always Drive intox or ride w/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
[2024-08-07 16:49] VITALS: BP 181/82; PULSE 100; RESP 16; TEMP 36.1
== END 2024-08-07 17:01 | disposition home or self-care (01) ==
LOC: ER 16:19
PROVIDERS: Emergency Provider Emergency Medicine; PCP Family Medicine
DX: S61.211D Laceration without foreign body of left index finger without damage to nail, subsequent encounter (principal); X58.XXXA Exposure to other specified factors, initial encounter

== ENCOUNTER 2024-08-17 01:12 | Outpatient (CLI) | payer MEDICARE, BC, SELFPAY ==
--- NOTE | 2024-08-17 10:20 | DI.RAD_ITS ---
Exam(s) XR CERVICAL SPINE COMP 4-5V EXAM: XR CERVICAL SPINE COMP 4-5V CLINICAL HISTORY: left cer radiculopathy M54.12 RADICULOPATHY CERVICAL REGION. TECHNIQUE: 2D digital imaging was performed. Five views were performed. COMPARISON: CR,RF BARIUM SWALLOW UGI from 03/07/2014 FINDINGS: BONES: No fracture or destructive lesion. Vertebral bodies are unremarkable. Facet degenerative zenon nges present throughout. Bilateral neural foraminal narrowing at C5-6 and C6-7. DISKS: Mild narrowing of the C5-6 and C6-7 disc spaces. Small endplate osteophytes at these levels. The remaining intervertebral disc spaces are maintained. ALIGNMENT: Some straightening of the normal cervical lordosis likely secondary to degenerative facet changes. The odontoid and atlantoaxial articulations are normal. SOFT TISSUE: Normal. The lung apices are clear. IMPRESSION: Degenerative disc changes and facet degenerative changes C5-6 and C6-7 cause bilateral neural foramin al narrowing. DATA REPOSITORY: RADIATION DOSE DELIVERED:
== END 2024-08-17 01:32 ==
LOC: DI 01:13
PROVIDERS: PCP Family Medicine; Visit Provider Family Medicine
DX: M50.122 Cervical disc disorder at C5-C6 level with radiculopathy (principal)
CPT/HCPCS: 72050

== ENCOUNTER → 2024-09-14 10:07 | Outpatient (BNVA) | payer MEDICARE, BC, SELFPAY | PROVIDERS: PCP Family Medicine; Referring Provider Family Medicine; Visit Provider Nurse Practitioner Adult Health | DX: G60.9 Hereditary and idiopathic neuropathy, unspecified (principal) | CPT/HCPCS: 99213 ==

== ENCOUNTER 2024-09-21 01:03 | Outpatient (CLI) | payer MEDICARE, BC, SELFPAY ==
--- NOTE | 2024-09-21 09:25 | DI.DEXA_ITS ---
Exam(s) XR DEXA BONE DENSITY W/WO JUAN JOSÉ EXAM: XR DEXA BONE DENSITY W/WO JUAN JOSÉ CLINICAL HISTORY: f/u osteopenia,menopausal disorder,n95.9,z78.0, screening for osteoporosis TECHNIQUE: COMPARISON: CR XR DEXA BONE DENSITY W/WO JUAN JOSÉ from 09/18/2022 FINDINGS: Lateral Spine Image: Unremarkable. No compression deformities identified. Left hip: Total T-Score: -1.4. This compares to -1.6 on the prior examination. Total Z-Score: 0.2 T- and Z-scores: Findings are consistent with osteopenia. No evidence of osteoporosis. Lumbar Spine: Total T-Score: -2.3. This compares to -2.1 on the prior examination. Total Z-Score: -0.1 T- and Z-scores: Findings are consistent with osteopenia. There is osteoporosis in the L1 vertebral body with a T-score of -2.8. IMPRESSION: Osteopenia in the left hip. There is osteoporosis seen in the L1 vertebral body.
--- NOTE | 2024-09-21 09:25 | DI.MAMMO_ITS ---
Exam(s) MAMMO SCREENING EXAM: MAMMO SCREENING CLINICAL HISTORY: screening,z12.39 TECHNIQUE: Mammograms were interpreted according to the usual protocol including computer analysis w [employer] CAD system, tomosynthesis and C-view imaging. COMPARISON: 2014 through 2022 FINDINGS: The breasts are composed of mainly fatty density , Breast Density category A. No suspicious masses or suspicious microcalcifications are seen. No skin thickening or abnormal axillary lymph nodes are seen. There has been no significant change from prior exams. IMPRESSION: BI-RADS Category 1, Negative mammogram Yearly screening mammography is recommended. Breast Density - Category A, fatty density. A negative radiographic report should not delay biopsy if a dominant or clinically suspicious mass is present. Up to ten percent of cancers are not identified on mammography. A negative report may reinforce clinical impression. Adenosis and dense breasts may obscure an underlying neoplasm. False positive reports average 6 to 10%. Patient will receive a letter notifying them of these results.
== END 2024-09-21 01:23 ==
PROVIDERS: PCP Family Medicine; Visit Provider Family Medicine
DX: Z12.31 Encounter for screening mammogram for malignant neoplasm of breast (principal); M85.89 Other specified disorders of bone density and structure, multiple sites
CPT/HCPCS: 36415; 77063; 77067; 77080; 80048

== ENCOUNTER 2024-09-21 01:50 | Outpatient (CLI) | payer MEDICARE, BC, SELFPAY ==
[2024-09-21 10:15] LABS: Anion Gap 8.6 mmol/L (3-11); BUN 14 mg/dL (7-18); CO2 28.4 mmol/L (21.0-32.0); Calcium 9.1 mg/dL (8.5-10.1); Chloride 103 mmol/L (98-107); Estimated GFR 59.86 (mL/min/1.73m2); Glucose 108 mg/dL (74-106); Potassium 3.8 mmol/L (3.5-5.1); Sodium 140 mmol/L (136-145)
== END 2024-09-21 01:51 | disposition home or self-care (01) ==
LOC: LBO 01:50
PROVIDERS: PCP Family Medicine; Visit Provider Family Medicine
DX: I10 Essential (primary) hypertension (principal)
CPT/HCPCS: 36415; 80048

== ENCOUNTER 2024-11-14 03:22 | Outpatient (CLI) | payer MEDICARE, BC, SELFPAY ==
[2024-11-14 13:34] LABS: Vitamin D 25 Total 31.1 ng/mL (30-100)
== END 2024-11-14 03:23 | disposition home or self-care (01) ==
LOC: LBO 03:23
PROVIDERS: PCP Family Medicine; Visit Provider Family Medicine
DX: M81.0 Age-related osteoporosis without current pathological fracture (principal)
CPT/HCPCS: 36415; 82306

== ENCOUNTER → 2025-09-24 01:30 | Outpatient (CLI) | payer MEDICARE, BC, SELFPAY ==
--- NOTE | 2025-09-24 06:30 | DI.MAMMO_ITS ---
Exam(s) MAMMO SCREENING EXAM: MAMMO SCREENING CLINICAL HISTORY: screening,z12.39 TECHNIQUE: Mammograms were interpreted according to the usual protocol including computer analysis with CAD system, tomosynthesis and C-view imaging. COMPARISON: 2015 through 2023 FINDINGS: The breasts are composed of mainly fatty density , Breast Density category A. No suspicious masses or suspicious microcalcifications are seen. No skin thickening or abnormal axillary lymph nodes are seen. There has been no significant change from prior exams. IMPRESSION: BI-RADS Category 1, Negative mammogram Yearly screening mammography is recommended. Breast Density- Category A - The breast are almost entirely fatty. Breast density Category C or D implies that the patient has dense breast tissue. Dense breast tissue can make it harder to find cancer on a mammogram. Dense breast tissue is also associated with an increased risk of breast cancer. This information about the result of the mammogram report was provided to the patient to raise their awareness. Use this report when you speak with the patient about their risks for breast cancer, which includes their family history. At that time, you may recommend additional screening tests (Ultrasound or MRI) as these tests may add significant information. A negative radiographic report should not delay biopsy if a dominant or clinically suspicious mass is present. Up to ten percent of cancers are not identified on mammography. A negative report may reinforce clinical impression. Adenosis and dense breasts may obscure an underlying neoplasm. False positive reports average 6 to 10%. Patient will receive a letter notifying them of these results.
== END ==
PROVIDERS: PCP Family Medicine; Visit Provider Family Medicine
DX: Z12.31 Encounter for screening mammogram for malignant neoplasm of breast (principal); R92.323 Mammographic fibroglandular density, bilateral breasts
CPT/HCPCS: 77063; 77067

== ENCOUNTER 2025-09-24 02:05 | Outpatient (CLI) | payer MEDICARE, BC, SELFPAY ==
[2025-09-24 10:58] LABS: Vitamin D 25 Total 43 ng/mL (30-100)
[2025-09-24 11:08] LABS: ALT 18 U/L (10-49); AST 24 U/L (<34); Albumin 4.6 g/dL (3.4-5.0); Alkaline Phosphatase 56 U/L (46-116); Anion Gap 10.3 mmol/L (3-11); BUN 14 mg/dL (9-23); Bilirubin, Total 0.80 mg/dL (0.2-1.2); CO2 26.7 mmol/L (20.0-31.0); Calcium 9.0 mg/dL (8.3-10.6); Chloride 101 mmol/L (98-107); Cholesterol 168 mg/dL (<200); Glucose 112 mg/dL (74-106); HDL Cholesterol 49 mg/dL (>40); Potassium 4.0 mmol/L (3.5-5.1); Sodium 138 mmol/L (136-145); Total Protein 7.8 g/dL (5.7-8.2)
== END 2025-09-24 02:06 | disposition home or self-care (01) ==
LOC: LBO 02:06
PROVIDERS: PCP Family Medicine; Visit Provider Family Medicine
DX: Z13.6 Encounter for screening for cardiovascular disorders (principal); M81.0 Age-related osteoporosis without current pathological fracture
CPT/HCPCS: 36415; 77063; 77067; 80053; 80061; 82306